=== PATIENT | female | born 1960 | race Caucasian/White ===

== ENCOUNTER 2016-07-11 15:38 | Outpatient (CLI) | payer OTHER ==
[2016-07-11 16:36] LABS: BASOPHILS % (AUTO) 0.5 % (0.0-2.0); EOSINOPHILS # (AUTO) 0.2 K/uL (0.0-0.4); EOSINOPHILS % (AUTO) 2.8 % (0.0-4.0); HEMATOCRIT 42.1 % (36-48); HEMOGLOBIN 14.1 g/dL (12.0-16.0); LYMPHOCYTES # (AUTO) 2.9 K/uL (1.0-5.5); LYMPHOCYTES % (AUTO) 38.4 % (20.5-51.5); MEAN CORPUSCULAR HEMOGLOBIN 31 pg (27-31); MEAN CORPUSCULAR HGB CONC 34 % (32-36); MEAN CORPUSCULAR VOLUME 92 fL (79.0-98.0); MONOCYTES # (AUTO) 0.5 K/uL (0.0-1.0); MONOCYTES % (AUTO) 6.3 % (1.7-9.3); PLATELET COUNT (AUTO) 322 K/uL (130-430); RED BLOOD CELL COUNT(AUTO) 4.61 MIL/uL (4.2-6.2); RED CELL DISTRIBUTION WIDTH 12.4 % (9.0-15.0); WHITE BLOOD COUNT (AUTO) 7.6 K/uL (4.8-10.8)
[2016-07-11 17:46] LABS: ALBUMIN 3.8 g/dL (3.4-4.8); C-REACTIVE PROTEIN QUANT 1.8 mg/dL (0-0.5); CALCIUM 9.1 mg/dL (8.4-11.0); CREATININE 0.85 mg/dL (0.55-1.30); FREE T4 (FREE THYROXINE) 0.5 ng/dL (0.6-1.6); POTASSIUM 4.2 mmol/L (3.5-5.1); THYROID STIMULATING HORMONE 0.85 uIu/mL (0.34-4.82); TOTAL BILIRUBIN 0.4 mg/dL (0.0-1.0); TOTAL PROTEIN, SERUM 8.3 g/dL (6.4-8.3)
[2016-07-11 18:02] LABS: ERYTHROCYTE SEDIMENTATION RATE 25 MM/HR (0-20)
[2016-07-12 08:07] LABS: FOLATE (FOLIC ACID) 10.1 ng/mL (>3.0)
== END 2016-07-11 18:31 | disposition home or self-care (01) ==
LOC: SLB 15:38
PROVIDERS: ATTEND Internal Medicine
DX: I10 Essential (primary) hypertension (principal)
CPT/HCPCS: 36415; 80053; 80061; 82306; 82607; 82746; 83655; 83735-TC; 84439; 84443-TC; 85025; 85651-TC; 86140

== ENCOUNTER 2016-07-31 12:38 | Outpatient (CLI) | payer OTHER | END 2016-07-31 20:08 | disposition home or self-care (01) | LOC: SUS 12:38 | PROVIDERS: ATTEND Internal Medicine | DX: M71.22 Synovial cyst of popliteal space [Baker], left knee (principal); I82.403 Acute embolism and thrombosis of unspecified deep veins of lower extremity, bilateral; M79.661 Pain in right lower leg | CPT/HCPCS: 93970 ==

== ENCOUNTER 2017-02-12 10:43 | Outpatient (CLI) | payer OTHER | END 2017-02-12 19:27 | disposition home or self-care (01) | LOC: SMA 10:43 | PROVIDERS: ATTEND Internal Medicine | DX: Z12.31 Encounter for screening mammogram for malignant neoplasm of breast (principal) | CPT/HCPCS: G0202 ==

== ENCOUNTER 2017-05-14 07:20 | Day surgery (SDC) | payer OTHER ==
[2017-05-12 11:49] LABS: BASOPHILS # (AUTO) 0.1 K/uL (0.0-0.2); EOSINOPHILS # (AUTO) 0.3 K/uL (0.0-0.4); EOSINOPHILS % (AUTO) 3.3 % (0.0-4.0); LYMPHOCYTES # (AUTO) 2.9 K/uL (1.0-5.5); LYMPHOCYTES % (AUTO) 32.1 % (20.5-51.5); MEAN CORPUSCULAR HEMOGLOBIN 29 pg (27-31); MEAN CORPUSCULAR HGB CONC 34 % (32-36); MEAN CORPUSCULAR VOLUME 86 fL (79.0-98.0); MONOCYTES # (AUTO) 0.6 K/uL (0.0-1.0); MONOCYTES % (AUTO) 6.1 % (1.7-9.3); NEUTROPHILS # (AUTO) 5.2 K/uL (1.8-7.7); NEUTROPHILS % (AUTO) 57.5 % (40.0-70.0); PLATELET COUNT (AUTO) 348 K/uL (130-430); RED BLOOD CELL COUNT(AUTO) 4.91 MIL/uL (4.2-6.2); RED CELL DISTRIBUTION WIDTH 11.8 % (9.0-15.0); WHITE BLOOD COUNT (AUTO) 9.1 K/uL (4.8-10.8)
[~2017-05-14] VITALS: Ht 165.1 cm; Wt 104.3 kg
[~2017-05-14 07:20] MED LIST: CEFAZOLIN 1 GM IVPB PREMIX 50 ML IV ONE
[2017-05-14 08:40] LABS: CALCIUM 9.2 mg/dL (8.4-11.0); CREATININE 0.77 mg/dL (0.55-1.30)
[2017-05-14 08:45] LABS: ALBUMIN 3.5 g/dL (3.4-4.8); TOTAL BILIRUBIN 0.4 mg/dL (0.0-1.0)
[2017-05-14] MEDS: MEPERIDINE HCL/PF 100 MG/ML AMP ONE ×2 (09:00→09:15)
[2017-05-14] MEDS: MIDAZOLAM HCL 5 MG/5 ML VIAL ONE ×2 (09:00→09:15)
[2017-05-14] MEDS ORDERED: MIDAZOLAM HCL 5 MG/5 ML VIAL IVP ONE (09:35)
[2017-05-14] MEDS ORDERED: NS IRRIG SOLN 1000 ML IR ONE (09:35)
[2017-05-14] MEDS ORDERED: LR 1,000 ML IV.SOLN IV ONE (09:35)
[2017-05-14] MEDS ORDERED: ROCURONIUM BROMIDE 10 MG/ML (ZEMURON) IV ONE (09:35)
[2017-05-14] MEDS ORDERED: SEVOFLURANE 15 MIN GAS INH ONE (09:35)
[2017-05-14] MEDS ORDERED: LIDOCAINE/EPI 2% 1:100000 20 ML VIAL INJ ONE (09:35)
[2017-05-14] MEDS ORDERED: BUPIVACAINE /PF 0.25% 30 ML VIAL INJ ONE (09:35)
[2017-05-14] MEDS ORDERED: PROPOFOL 200MG/ 20ML VIAL (DIPRIVAN) IV ONE (09:35)
[2017-05-14] MEDS ORDERED: fentaNYL CITRATE 250 MCG/5 ML AMP IV ONE (09:35)
[2017-05-14] MEDS ORDERED: CEFAZOLIN 1 GM IVPB PREMIX 50 ML IV ONE (09:35)
[2017-05-14] MEDS ORDERED: LR 1,000 ML IV SCH (10:21)
[2017-05-14] MEDS ORDERED: METOCLOPRAMIDE HCL 10 MG/2 ML VIAL IVP PRN (10:30)
[2017-05-14] MEDS ORDERED: MORPHINE 4 MG/ML INJ. SYRINGE IVP PRN ×3 (10:30)
[2017-05-14] MEDS ORDERED: MORPHINE 4 MG/ML INJ. SYRINGE ONE (10:47)
[2017-05-14] MEDS ORDERED: HYDROcodone/ACETAMIN 5-325 MG TAB (NORCO/ VICODIN) PO PRN (11:30)
[2017-05-14] MEDS ORDERED: ONDANSETRON HCL 4 MG/2 ML VIAL IVP PRN (11:30)
[2017-05-14] MEDS ORDERED: OXYCODONE/ACETAMINOPHEN 5-325 TABLET PO PRN (11:30)
[2017-05-14 12:11] VITALS: BP_SYST 98
== END 2017-05-14 13:30 | disposition home or self-care (01) ==
LOC: SDS 07:20 → SMU 07:21 → SDS 13:30
PROVIDERS: ATTEND Specialist
DX: N90.4 Leukoplakia of vulva (principal); L91.8 Other hypertrophic disorders of the skin; N90.3 Dysplasia of vulva, unspecified; L85.8 Other specified epidermal thickening; L08.89 Other specified local infections of the skin and subcutaneous tissue; I10 Essential (primary) hypertension; E78.00 Pure hypercholesterolemia, unspecified; F41.8 Other specified anxiety disorders; M19.90 Unspecified osteoarthritis, unspecified site; F17.200 Nicotine dependence, unspecified, uncomplicated; E66.9 Obesity, unspecified; Z88.1 Allergy status to other antibiotic agents; Z90.710 Acquired absence of both cervix and uterus; Z96.653 Presence of artificial knee joint, bilateral; Z96.641 Presence of right artificial hip joint; Z98.890 Other specified postprocedural states; Z79.82 Long term (current) use of aspirin; Z79.899 Other long term (current) drug therapy
CPT/HCPCS: 11423; 11200; 36415 ×2; 80053; 85025; 88305; 93005; J0690; J2175; J2250; J2270; J7120; J2704; J3010; J3490

== ENCOUNTER 2017-06-09 13:40 | Emergency (ER) | payer OTHER ==
[~2017-06-09] VITALS: Ht 165.1 cm; Wt 104.3 kg
[2017-06-09 14:21] VITALS: BP_SYST 120
[2017-06-09 14:50] LABS: BASOPHILS # (AUTO) 0.1 K/uL (0.0-0.2); BASOPHILS % (AUTO) 0.9 % (0.0-2.0); EOSINOPHILS # (AUTO) 0.1 K/uL (0.0-0.4); EOSINOPHILS % (AUTO) 1.5 % (0.0-4.0); HEMOGLOBIN 13.9 g/dL (12.0-16.0); LYMPHOCYTES # (AUTO) 1.6 K/uL (1.0-5.5); LYMPHOCYTES % (AUTO) 22.6 % (20.5-51.5); MEAN CORPUSCULAR HEMOGLOBIN 28 pg (27-31); MEAN CORPUSCULAR HGB CONC 32 % (32-36); MEAN CORPUSCULAR VOLUME 86 fL (79.0-98.0); MONOCYTES # (AUTO) 0.9 K/uL (0.0-1.0); MONOCYTES % (AUTO) 12.8 % (1.7-9.3); NEUTROPHILS # (AUTO) 4.4 K/uL (1.8-7.7); NEUTROPHILS % (AUTO) 62.2 % (40.0-70.0); PLATELET COUNT (AUTO) 305 K/uL (130-430); RED BLOOD CELL COUNT(AUTO) 5.01 MIL/uL (4.2-6.2); RED CELL DISTRIBUTION WIDTH 11.8 % (9.0-15.0); WHITE BLOOD COUNT (AUTO) 7.1 K/uL (4.8-10.8)
[2017-06-09 15:07] LABS: CREATININE 1.62 mg/dL (0.55-1.30); POTASSIUM 4.2 mmol/L (3.5-5.1)
--- NOTE | 2017-06-09 15:09 | NUR ---
Pt to hallway bed 1.
--- NOTE | 2017-06-09 15:11 | NUR ---
RACHEL Tenorio NEWSPAPER MANAGING EDITOR at bedside examining patient.
--- NOTE | 2017-06-09 15:12 | NUR ---
Pt presents to the ED c/o difficulty swallowing and sore throat x5-6 days accompanying nausea, generalized weakness, and body aches and mild diarrhea. Pt denies vomiting, cough, headache, abd pain. Pt speaking in full sentences, breathing even and unlabored, skin pink dry and warm. at bedside.
[2017-06-09 15:13] LABS: ALBUMIN 3.7 g/dL (3.4-4.8); TOTAL BILIRUBIN 0.3 mg/dL (0.0-1.0)
[2017-06-09 16:02] LABS: BILIRUBIN,URINE 1+ (NEGATIVE); BLOOD, URINE NEGATIVE (NEGATIVE); CLARITY/URINE SL HAZY (CLEAR); COLOR,URINE YELLOW (YELLOW); GLUCOSE,URINE NEGATIVE (NEGATIVE); KETONES,URINE TRACE (NEGATIVE); LEUKOCYTE ESTERASE ,URINE NEGATIVE (NEGATIVE); NITRITE, URINE NEGATIVE (NEGATIVE); PH,URINE 5.5 (5.0-8.0); PROTEIN URINE TRACE (NEGATIVE); UROBILINOGEN,URINE 0.2 (0.2-1.0)
[2017-06-09 16:27] LABS: BACTERIA,URINE FEW /HPF (None Seen); RBC,URINE 0-3 /HPF (0-3); WBC,URINE 0-3 /HPF (0-3)
--- NOTE | 2017-06-09 16:38 | NUR ---
# 22 gauge angiocath placed to L AC. Use of asceptic technique. Opsite placed over site. Blood return noted. Flushed with 10 cc of normal saline. No evidence of infiltration noted. Patient tolerated well.
[2017-06-09 16:44] LABS: INFLUENZA A&B ANTIGEN SCREEN NEGATIVE FOR A & B (NEGATIVE); STREPTOCOCCUS A SCREEN (RAPID) NEGATIVE (NEGATIVE)
[2017-06-09] MEDS: NACL 0.9% 1,000 ML IV ONE (16:55)
[2017-06-09] MEDS: ONDANSETRON HCL 4 MG/2 ML VIAL IVP ONE (16:55)
[2017-06-09] MEDS: KETOROLAC TROMETHAMINE 30 MG VIAL IVP ONE (16:56)
--- NOTE | 2017-06-09 16:56 | NUR ---
Medication administered. Pt tolerated well. No adverse reactions noted.
[2017-06-09] MEDS: methylPREDNISolone SOD SUCC/PF 62.5 MG/ML VIAL IVP ONE (17:09)
[2017-06-09] MEDS ORDERED: LORazepam 1 MG TABLET PO ONE (17:15)
[2017-06-09] MEDS: LORazepam 2 MG/ML VIAL (FOR ER USE) IVP ONE ×2 (17:45→18:09)
[2017-06-09] MEDS: PENICILLIN G BENZATHINE 1.2 MMU/2 ML SYR IM ONE (17:51)
[2017-06-09 18:30] VITALS: BP_SYST 118
--- NOTE | 2017-06-09 18:30 | NUR ---
Patient given written and verbal discharge instructions and verbalizes understanding. ER MD discussed with patient the results and treatment provided. Patient in stable condition. ID arm band removed. IV catheter removed intact and dressing applied, no active bleeding. Rx of Prednisone, Prilosec, Zofran given. Patient educated on pain management and to follow up with PMD. Pain Scale 0. Opportunity for questions provided and answered.
== END 2017-06-09 18:30 | disposition home or self-care (01) ==
LOC: SED 13:40
DX: J02.9 Acute pharyngitis, unspecified (principal); B34.9 Viral infection, unspecified; I10 Essential (primary) hypertension; F41.9 Anxiety disorder, unspecified; Z88.1 Allergy status to other antibiotic agents; Z91.018 Allergy to other foods; Z91.048 Other nonmedicinal substance allergy status; Z90.710 Acquired absence of both cervix and uterus; Z96.641 Presence of right artificial hip joint
CPT/HCPCS: 36415; 71045; 74018; 80053; 81000; 83690; 85025; 86403; 86710; 87081; 93005; 96361; 96372; 96374; 96375; 96376; 99285; J0561; J1885; J2060; J2405; J2930; J7030

== ENCOUNTER 2017-06-10 17:42 | Inpatient (IN) | payer OTHER ==
[~2017-06-10] VITALS: Ht 165.1 cm; Wt 104.8 kg
[2017-06-10] MEDS ORDERED: AMPICILLIN SODIUM/SULBACTAM NA 1.5 GM in NS 50 ML IV SCH (19:30)
[2017-06-10] MEDS ORDERED: ONDANSETRON HCL 4 MG/2 ML VIAL IVP PRN (19:30)
--- NOTE | 2017-06-10 19:40 | NUR ---
ADMISSION: The patient, RAUL WALLIS, 56 y/o, F admitted by ANDREA GRIFFITHS MD, was given written information regarding hospital policies, unit procedures and contact persons. Valuables were checked and recorded and verified..
[2017-06-10 19:50] LABS: BASOPHILS # (AUTO) 0.1 K/uL (0.0-0.2); BASOPHILS % (AUTO) 0.5 % (0.0-2.0); HEMATOCRIT 38.7 % (36-48); HEMOGLOBIN 13.1 g/dL (12.0-16.0); LYMPHOCYTES # (AUTO) 2.6 K/uL (1.0-5.5); MEAN CORPUSCULAR HEMOGLOBIN 29 pg (27-31); MEAN CORPUSCULAR HGB CONC 34 % (32-36); MEAN CORPUSCULAR VOLUME 85 fL (79.0-98.0); MONOCYTES # (AUTO) 1.2 K/uL (0.0-1.0); MONOCYTES % (AUTO) 8.6 % (1.7-9.3); NEUTROPHILS # (AUTO) 10.3 K/uL (1.8-7.7); NEUTROPHILS % (AUTO) 72.9 % (40.0-70.0); PLATELET COUNT (AUTO) 316 K/uL (130-430); RED BLOOD CELL COUNT(AUTO) 4.54 MIL/uL (4.2-6.2); WHITE BLOOD COUNT (AUTO) 14.2 K/uL (4.8-10.8)
[2017-06-10 20:08] LABS: CALCIUM 8.8 mg/dL (8.4-11.0); CREATININE 1.16 mg/dL (0.55-1.30); POTASSIUM 4.1 mmol/L (3.5-5.1)
[2017-06-10 20:13] LABS: ALBUMIN 3.1 g/dL (3.4-4.8); TOTAL BILIRUBIN 0.2 mg/dL (0.0-1.0)
--- NOTE | 2017-06-10 20:13 | NUR ---
admission note RECEIVED PATIENT ON BED VIA DIRECT ADMIT ACCOMPANIED BY THE , MAINTAINED ON POSITION OF COMFORT IN DUMONT'S POSITION. PATIENT STATED THAT SHE HAS PAIN ON THE THROAT WHEN SHE IS SWALLOWING AND IS AGGRAVATED BY SWALLOWING AND TALKING. PATIENT IS ALSO FEELING NAUSEOUS. PROVIDED PATIENT WITH ADMISSION CARE, AND ORIENTED TO THE UNIT FACILITY. EXPLAINED THE PLAN OF CARE AND VERBALIZED UNDERSTANDING. ENCOURAGED TO DO SOME DEEP BREATHING AND RELAXATION. CALL LIGHT WITHIN REACH WILL CONTINUE TO MONITOR.
--- NOTE | 2017-06-10 20:28 | NUR ---
MD ANDER PIERRE CAME TO SEE THE PATIENT AND SAID THAT HE WILL MAKE ANOTHER ORDER. NOT TO GIVE THE UNASYN 1.5 INSTEAD HE WILL CHANGE THE ORDER TO 3MDG. WILL WAIT FOR THE ORDERS AND NOTE IT.
[2017-06-10] MEDS ORDERED: PROMETHAZINE-DM 6.25 MG-15 MG/5 ML UDC PO PRN (20:30)
[2017-06-10 21:00] VITALS: BP_SYST 121
[2017-06-10] MEDS ORDERED: AMPICILLIN SODIUM/SULBACTAM NA 3 GM in NS 100 ML IV ONE (21:00)
[2017-06-10] MEDS ORDERED: AMPICILLIN SODIUM/SULBACTAM NA 3 GM VIAL ONE (22:22)
[2017-06-10] MEDS: NACL 0.9% 1,000 ML IV SCH (22:24)
[2017-06-10] MEDS: LORazepam 2 MG/ML VIAL IVP PRN (22:24)
[2017-06-10] MEDS: DIPHENHYDRAMINE INJ 50 MG/ML VIAL IVP SCH (22:25)
[2017-06-10] MEDS: ACETAMINOPHEN 325 MG TABLET PO PRN (22:26)
[2017-06-10] MEDS ORDERED: TEMAZEPAM 15 MG CAPSULE PO PRN (22:30)
--- NOTE | 2017-06-10 22:44 | NUR ---
RN ROUNDS PATIENT MEDICATIONS GIVEN DUE TO PAIN ON THE THROAT, AND STATED THAT SHE IS HAVING AND ANXIETY. ENCOURAGED RELAXATION TECHNIQUES AND DEEP BREATHING TO PROMOTE REST AND SLEEP. PATIENT'S ON THE BEDSIDE. PATIENT REFUSED THE SCD'S BECAUSE IT WAS TOO TIGHT FOR HER AND WATS TO HAVE A GOOD REST SLEEP. EXPLAINED THE RISKS AND BENEFITS AND VERBALIZED UNDERSTANDING CALL LIGHT WITHIN REACH WILL CONTINUE TO MONITOR
[2017-06-11] VITALS: BP_SYST 125
--- NOTE | 2017-06-11 00:36 | NUR ---
BENADRYL BENADRYL GIVEN EARLIER THAN THE TIMED DOSE, STATED THAT RN CAN GIVE THE MEDICATION ONCE THE PATIENT HAS A LINE. 2205 NEW LINE WAS INSERTED AT THE LEFT HAND CLEAN DRY INTACT. CALL LIGHT WITHIN REACH WILL CONTINUE TO MONITOR.
[2017-06-11] MEDS: MORPHINE 2 MG/ML INJ. SYRINGE IVP PRN ×2 (00:44→06:17)
--- NOTE | 2017-06-11 02:00 | NUR ---
RN ROUNDS PATIENT ON BED SLEEPING AND RESTING MAINTAINED ON POSITION OF COMFORT MAINTAINED SAFETY PRECAUTIONS. NO SOB NOTED NOT IN DISTRESS. CALL LIGHT WITHIN REACH WILL CONTINUE TO MONITOR.
--- NOTE | 2017-06-11 04:35 | NUR ---
RN ROUNDS PATIENT ON BED SLEEPING AND RESTING BREATHING EVEN AND UNLABORED NO SOB NOTED WILL CONTINUE TO MONITOR, CALL LIGHT WITHIN REACH.
[2017-06-11] MEDS ORDERED: AMPICILLIN SODIUM/SULBACTAM NA 3 GM VIAL ONE (05:52)
[2017-06-11] MEDS: AMPICILLIN SODIUM/SULBACTAM NA 3 GM in NS 100 ML IV SCH ×4 (06:00→23:37)
[2017-06-11] MEDS: DIPHENHYDRAMINE INJ 50 MG/ML VIAL IVP SCH ×5 (06:18→23:36)
--- NOTE | 2017-06-11 06:59 | NUR ---
CLOSING NOTES PATIENT ON BED SLEEPING AND RESTING, MAINTAINED ON POSITION OF COMFORT MAINTAINED ON SAFETY PRECAUTION, MAINTAINED BED ON LOWEST POSITION, STILL WITH OCCASIONAL PAIN. WILL GIVE REPORT TO THE MORNING NURSE, PATIENT STILL RUNNING IV @ 100, CLEAN DRY INTACT. ICE CHIPS GIVEN TO RELIEVE PAIN ON THE THROAT, AND TOLERATING WELL.SCD'S REFUSED THROUGH THE NIGHT. WILL CONTINUE TO MONITOR CALL LIGHT WITHIN REACH.
[2017-06-11 07:40] LABS: BASOPHILS % (AUTO) 0.4 % (0.0-2.0); EOSINOPHILS % (AUTO) 0.2 % (0.0-4.0); HEMATOCRIT 38.4 % (36-48); HEMOGLOBIN 12.8 g/dL (12.0-16.0); LYMPHOCYTES # (AUTO) 3.8 K/uL (1.0-5.5); LYMPHOCYTES % (AUTO) 32.8 % (20.5-51.5); MEAN CORPUSCULAR HEMOGLOBIN 29 pg (27-31); MEAN CORPUSCULAR HGB CONC 33 % (32-36); MEAN CORPUSCULAR VOLUME 87 fL (79.0-98.0); MONOCYTES % (AUTO) 8.8 % (1.7-9.3); NEUTROPHILS # (AUTO) 6.8 K/uL (1.8-7.7); NEUTROPHILS % (AUTO) 57.8 % (40.0-70.0); PLATELET COUNT (AUTO) 281 K/uL (130-430); RED BLOOD CELL COUNT(AUTO) 4.41 MIL/uL (4.2-6.2); RED CELL DISTRIBUTION WIDTH 11.9 % (9.0-15.0); WHITE BLOOD COUNT (AUTO) 11.6 K/uL (4.8-10.8)
[2017-06-11 07:56] LABS: CALCIUM 8.9 mg/dL (8.4-11.0); CREATININE 0.91 mg/dL (0.55-1.30); FREE T4 (FREE THYROXINE) 0.8 ng/dL (0.6-1.6); POTASSIUM 4.1 mmol/L (3.5-5.1); THYROID STIMULATING HORMONE 1.05 uIu/mL (0.34-4.82)
[2017-06-11 08:00] VITALS: BP_SYST 123
--- NOTE | 2017-06-11 08:00 | NUR ---
opening note Patient resting quietly. No acute distress noted. oriented to call light use. bed in the lowest position. patient denies any chest pain/ shortness of breath.
[2017-06-11] MEDS: CARVEDILOL 6.25 MG TABLET (COREG) PO SCH ×2 (08:33→20:48)
[2017-06-11] MEDS: ACETAMINOPHEN 325 MG TABLET PO PRN ×2 (08:33→17:53)
[2017-06-11] MEDS: MECLIZINE HCL 25 MG TABLET (ANITVERT) PO SCH ×3 (08:34→20:48)
[2017-06-11] MEDS: HYDROCHLOROTHIAZIDE 25 MG TABLET (HCTZ) PO SCH (08:34)
[2017-06-11 08:50] LABS: ERYTHROCYTE SEDIMENTATION RATE 29 MM/HR (0-20)
[2017-06-11] MEDS ORDERED: BENAZEPRIL HCL 20 MG TABLET (LOTENSIN) PO SCH (09:00)
[2017-06-11] MEDS: NACL 0.9% 1,000 ML IV SCH ×2 (11:04→14:38)
[2017-06-11 11:37] VITALS: BP_SYST 107
--- NOTE | 2017-06-11 12:00 | NUR ---
PATIENT RESTING: Patient resting quietly.family at bedside. No acute distress noted. bed in the lowest position. patient denies any chest pain/ shortness of breath.
--- NOTE | 2017-06-11 12:30 | NUR ---
IV RE-INSERTION: Complaining of pain to IV site. Restarted on the left hand. Successful after attempts. Resumed current IVF of and regulated @ per hour. Will observe for any signs of infiltration.
[2017-06-11] MEDS: LORazepam 1 MG TABLET PO SCH ×4 (13:00→20:54)
[2017-06-11] MEDS: MORPHINE 4 MG/ML INJ. SYRINGE IVP PRN ×2 (13:21→21:00)
[2017-06-11 15:26] VITALS: BP_SYST 108
--- NOTE | 2017-06-11 16:43 | NUR ---
Dietitian Recommendations * Consider swallow eval * Consider advance diet if/when medically appropriate LP, RD Please refer to Nutrition Assessment for details.
[2017-06-11] MEDS: LORazepam 2 MG/ML VIAL IVP PRN (18:10)
--- NOTE | 2017-06-11 19:00 | NUR ---
closing note family at bedside. patient in no distress. all needs met throughout shift. report given at bedside.
--- NOTE | 2017-06-11 19:20 | NUR ---
OPENING NOTE REPORT WAS ENDORSED BY DAY NURSE AT BEDSIDE. PATIENT IS AWAKE AND LAYING IN BED, EDUCATED ELECTRIFICATION ADVISER LIGHT , CALL LIGHT IS WITH HER. PATIENT HAS FAMILY MEMBER AT BED SIDE. PATIENT HAS NO OTHER NEEDS AT THIS TIME. PATIENT IS STABLE NO OTHER SIGNS OF DISTRESS, BREATHING IS EQUAL AND NON LABORED. WILL CONTINUE TO MONITOR.
[2017-06-11 20:45] VITALS: BP_SYST 135
[2017-06-11] MEDS: OMEGA-3/DHA/EPA/FISH OIL 1 GM CAPSULE PO SCH (20:48)
[2017-06-11] MEDS: CHOLECALCIFEROL (VITAMIN D3) 2,000 UNIT TABLET PO SCH (20:48)
[2017-06-11] MEDS: BENAZEPRIL HCL 20 MG TABLET (LOTENSIN) PO SCH (20:49)
[2017-06-11] MEDS: ASPIRIN 81 MG TAB.CHEW PO SCH (20:49)
--- NOTE | 2017-06-11 21:03 | NUR ---
PAIN MEDICATION/MEDICATION Addendum: 06/12/17 at 0015 by No Rizvi RN PT AWAKE AND ALERT, PT LYING IN BED SEMI-FOWLERS POSITION. RESPIRATIONS EVEN AND UNLABORED.NO DISTRESS NOTED. VITAL SIGNS STABLE. PT'S SCHEDULED ORDERED MEDS GIVEN PRESCRIBED, PT TOLERATED WELL. SAFETY MEASURES IMPLEMENTED. CALL LIGHT WITHIN REACH, BED IN LOWEST POSITION. NO NEEDS AT THIS TIME. LIGHT SHUT OFF, PT GOING TO SLEEP. WILL CONTINUE TO MONITOR.
--- NOTE | 2017-06-11 23:30 | NUR ---
MEDICATION ADMINISTRATION PT FOUND ASLEEP, IN POSITION OF COMFORT. RESPIRATIONS EVEN AND UNLABORED. VITAL SIGNS STABLE. MEDICATIONS ADMINISTERED ORDERED, TOLERATED WELL. ASSISTED PT TO THE RESTROOM, COLLECTED URINE SPECIMEN. ASSISTED PT BACK TO BED. SAFETY PRECAUTIONS IMPLEMENTED. CALL LIGHT WITHIN REACH, BED IN LOWEST POSITION.
[2017-06-11 23:53] LABS: BILIRUBIN,URINE NEGATIVE (NEGATIVE); BLOOD, URINE NEGATIVE (NEGATIVE); CLARITY/URINE CLEAR (CLEAR); COLOR,URINE YELLOW (YELLOW); GLUCOSE,URINE NEGATIVE (NEGATIVE); KETONES,URINE NEGATIVE (NEGATIVE); LEUKOCYTE ESTERASE ,URINE NEGATIVE (NEGATIVE); NITRITE, URINE NEGATIVE (NEGATIVE); PH,URINE 5.5 (5.0-8.0); PROTEIN URINE NEGATIVE (NEGATIVE); UROBILINOGEN,URINE 0.2 (0.2-1.0)
[2017-06-12 00:02] VITALS: BP_SYST 115
--- NOTE | 2017-06-12 01:30 | NUR ---
rn rounding Delayed charting due to patient care. Patient appears to be resting with both eyes closed no signs of any distress, breathing is equal and non labored with visible chest rise and fall . Patient has all safety precautions in place, call light is with her. Patient is stable has no other needs at this time
--- NOTE | 2017-06-12 03:30 | NUR ---
RN ROUNDS FOUND PT ASLEEP, IN POSITION OF COMFORT. RESPIRATIONS EVEN AND UNLABORED. NO DISTRESS NOTED. SAFETY PRECAUTIONS IN PLACE. RUTHY LIGHT WITHIN REACH, BED IN LOWEST POSITION, BED RAILS UP. WILL CONTINUE TO MONITOR.
[2017-06-12 04:31] VITALS: BP_SYST 115
[2017-06-12] MEDS: NACL 0.9% 1,000 ML IV SCH ×4 (04:38→22:18)
[2017-06-12] MEDS: MORPHINE 4 MG/ML INJ. SYRINGE IVP PRN ×2 (04:45→18:14)
--- NOTE | 2017-06-12 05:00 | NUR ---
IV site Patients iv site infiltrated 22 gauge to left hand removed catheter is intact. New iv site obtained on left wrist, 24 g flushing well, good blood return.Patient is awake and alert laying in bed no signs of any distress, breathing is equal and non labored. Patient is stable with all needs met at this time. Will continue to monitor.
[2017-06-12] MEDS: AMPICILLIN SODIUM/SULBACTAM NA 3 GM in NS 100 ML IV SCH ×4 (05:40→23:18)
[2017-06-12] MEDS: DIPHENHYDRAMINE INJ 50 MG/ML VIAL IVP SCH ×4 (05:40→23:17)
--- NOTE | 2017-06-12 07:06 | NUR ---
RN ROUNDS PT ASLEEP, AND IN POSITION OF COMFORT. RESPIRATIONS EVEN AND UNLABORED. NO DISTRESS NOTED AT THIS TIME. SAFETY PRECAUTION IN PLACE,CALL LIGHT WITHIN REACH. BED IN LOWEST POSITION, WILL CONTINUE TO MONITOR.
[2017-06-12 07:15] LABS: BASOPHILS % (AUTO) 0.5 % (0.0-2.0); EOSINOPHILS # (AUTO) 0.1 K/uL (0.0-0.4); EOSINOPHILS % (AUTO) 1.4 % (0.0-4.0); HEMATOCRIT 39.9 % (36-48); HEMOGLOBIN 13.2 g/dL (12.0-16.0); LYMPHOCYTES % (AUTO) 42.8 % (20.5-51.5); MEAN CORPUSCULAR HEMOGLOBIN 29 pg (27-31); MEAN CORPUSCULAR HGB CONC 33 % (32-36); MEAN CORPUSCULAR VOLUME 87 fL (79.0-98.0); MONOCYTES # (AUTO) 0.9 K/uL (0.0-1.0); MONOCYTES % (AUTO) 9.1 % (1.7-9.3); NEUTROPHILS # (AUTO) 4.4 K/uL (1.8-7.7); NEUTROPHILS % (AUTO) 46.2 % (40.0-70.0); PLATELET COUNT (AUTO) 281 K/uL (130-430); RED BLOOD CELL COUNT(AUTO) 4.57 MIL/uL (4.2-6.2); RED CELL DISTRIBUTION WIDTH 12.3 % (9.0-15.0); WHITE BLOOD COUNT (AUTO) 9.4 K/uL (4.8-10.8)
[2017-06-12 07:29] LABS: CALCIUM 9.2 mg/dL (8.4-11.0); CREATININE 0.75 mg/dL (0.55-1.30); POTASSIUM 4.2 mmol/L (3.5-5.1)
--- NOTE | 2017-06-12 08:00 | NUR ---
OPENING NOTE: MORNING REPORT GIVEN FROM VEHICLE SAFETY INSPECTOR NURSE. PATIENT WAS ASLEEP WITH NO SIGNS OF DISTRESS. PATIENT HELPED TO RESTROOM. VITAL SIGNS WERE TAKEN. PATIENT STATED SHE IS TIRED. PATIENT ALSO STATED HER THROAT HURTS HER. WILL TRY TO MINIMIZE INTERRUPTIONS. CALL LIGHT IS IN REACH WITH BED IN LOWEST POSITION. 3 SIDE RAILS ARE UP. WILL CONTINUE TO MONITOR.
[2017-06-12 08:55] VITALS: BP_SYST 166
[2017-06-12] MEDS: ACETAMINOPHEN 325 MG TABLET PO PRN (09:30)
[2017-06-12] MEDS: LORazepam 1 MG TABLET PO SCH ×4 (09:31→20:47)
[2017-06-12] MEDS: CARVEDILOL 6.25 MG TABLET (COREG) PO SCH ×2 (09:32→20:47)
[2017-06-12] MEDS: MECLIZINE HCL 25 MG TABLET (ANITVERT) PO SCH ×3 (09:33→20:45)
[2017-06-12] MEDS: HYDROCHLOROTHIAZIDE 25 MG TABLET (HCTZ) PO SCH (09:33)
--- NOTE | 2017-06-12 10:00 | NUR ---
NOTE: PATIENT IS ASLEEP WITH NO SIGNS OF DISTRESS. PATIENT WOKEN FOR MEDICATIONS. PATIENTS THROAT IS SWOLLEN. TOOK PILLS ONE BY ONE UNTIL END. PATIENT WANTED TO GET THEM OVER WITH. TAKING MORE THAN 1 HURTS HER THROAT. PATIENT HAS IV FLUIDS RUNNING. BED IS IN LOWEST POSITION WITH LIGHTS DIMMED. CALL LIGHT IS IN REACH WITH 3 SIDE RAILS UP. WILL CONTINUE TO MONITOR.
--- NOTE | 2017-06-12 12:00 | NUR ---
NOTE: PATIENT IS SITTING AT BEDSIDE TALKING TO AND EATING LUNCH. PATIENT IS IN NO SIGNS OF DISTRESS. PATIENT IS ON ROOM AIR. PATIENT VOICED CONCERNS ABOUT IV GOING BAD. GOT ICE FOR PATIENTS DRINK. CALL LIGHT IS IN REACH WITH BED IN LOWEST POSITION. SIDE RAILS ARE UP. WILL CONTINUE TO MONITOR.
[2017-06-12 12:38] VITALS: BP_SYST 125
--- NOTE | 2017-06-12 14:00 | NUR ---
NOTE: PATIENT IS SLEEPING WITH NO SIGNS OF DISTRESS. IS AT BEDSIDE ALSO ASLEEP. LIGHTS ARE DIMMED. PATIENT IS ON ROOM AIR. IV FLUIDS ARE RUNNING. CALL LIGHT IS IN REACH WITH SIDE RAILS UP. BED IS IN LOWEST POSITION. WILL CONTINUE TO MONITOR.
--- NOTE | 2017-06-12 16:00 | NUR ---
NOTE: PATIENT IS COMFORTABLY ASLEEP WITH NO SIGNS OF DISTRESS. PATIENT AWAKENED TO GIVE MEDICATIONS. PATIENT WAS COMPLAINING OF TAKING ALL THE PO MEDICATIONS AND HOW THEY AREN'T MAKING HER THROAT ANY BETTER. OFFERED PATIENT SOMETHING WARM FOR THROAT. CALLED KITCHEN FOR SOME NONCAFFEINATED TEA FOR PATIENT. PATIENT IS ON ROOM AIR. FLUIDS ARE RUNNING. BED IS IN LOWEST POSITION WITH CALL LIGHT IN REACH AND SIDE RAILS UP. WILL CONTINUE TO MONITOR.
[2017-06-12 16:20] VITALS: BP_SYST 150
--- NOTE | 2017-06-12 18:00 | NUR ---
CLOSING NOTE: PATIENT IS AWAKE EATING DINNER AT BEDSIDE WITH . PATIENT IS COMPLAINING OF PAIN 9/10 IN JAW/EAR FROM A YAWN. PAIN MEDICATION WAS GIVEN ALONG WITH OTHER MEDICATIONS. PATIENT WOULD LIKE INTERRUPTIONS TO BE MINIMIZED SO SHE COULD REST AND SLEEP. PATIENT DOESN'T WANT SCD'S ON. PATIENT IS ON ROOM AIR. CALL LIGHT IS IN REACH WITH BED IN LOWEST POSITION AND 3 SIDE RAILS ARE UP. WILL GIVE REPORT TO EVENTS AND PROMOTIONS ASSISTANT NURSE.
--- NOTE | 2017-06-12 19:20 | NUR ---
Opening note Report was endorsed by day nurse at bed side. Patient appears to be resting with both eyes closed no signs of any distress, breathing is equal and non labored. Patient has all safety precautions in place. Patient has call light with her. Patients spouse at bed side. Patient is stable with no other needs at this time. Will continue to monitor hourly.
[2017-06-12 20:43] VITALS: BP_SYST 166
[2017-06-12] MEDS: CHOLECALCIFEROL (VITAMIN D3) 2,000 UNIT TABLET PO SCH (20:45)
[2017-06-12] MEDS: OMEGA-3/DHA/EPA/FISH OIL 1 GM CAPSULE PO SCH (20:45)
[2017-06-12] MEDS: BENAZEPRIL HCL 20 MG TABLET (LOTENSIN) PO SCH (20:47)
[2017-06-12] MEDS: ASPIRIN 81 MG TAB.CHEW PO SCH (20:47)
--- NOTE | 2017-06-12 20:56 | NUR ---
MEDICATION Patients scheduled medication given per order. Dr. Andrews at bed side. Informed him of elevated blood pressure and which medication blood pressure medication was just administered. Patient is awake and alert laying in bed. Assisted patient to bathroom and back to bed. Patient has no other needs at this time. Patient is stable no other needs at this time. Will continue to monitor patient and blood pressure.
--- NOTE | 2017-06-12 21:55 | NUR ---
Spoke with Dr. Andrews Regarding IV fluid and blood pressure orders were received. Patient blood pressure currently is 159/95 will continue to monitor.
[2017-06-12] MEDS: LORazepam 2 MG/ML VIAL IVP PRN (22:17)
[2017-06-12] MEDS: cloNIDine HCL 0.1 MG TABLET PO PRN (23:17)
--- NOTE | 2017-06-12 23:22 | NUR ---
blood pressure/scheduled medication Addendum: 06/12/17 at 2349 by Taryn Oshea RN Patients blood pressure is elevated medicated per order. Patients scheduled medication also given. Patient is awake and alert, educted to try and get some rest. Patient has all safety precautions in place. Assisted to bathroom and back to bed. Patient is stable has no other needs at this time. Will continue to monitor.
[2017-06-13] VITALS (9 sets, daily range): BP systolic 120–169
--- NOTE | 2017-06-13 01:12 | NUR ---
RN rounding Patient appears to be resting with both eyes closed no signs of any distress, breathing is equal and non labored. Patient has all safety precautions in place.Call light is with her. Patient is stable.
--- NOTE | 2017-06-13 03:14 | NUR ---
RN rounding Patient is laying in bed appears to be sleeping with both eyes closed no signs of any distress, breathing is equal and non labored. patient has all safety precautions in place.Call light is with her. Patient is stable with no other needs at this time. will continue to monitor.
[2017-06-13] MEDS: AMPICILLIN SODIUM/SULBACTAM NA 3 GM in NS 100 ML IV SCH ×3 (05:14→17:35)
[2017-06-13] MEDS: DIPHENHYDRAMINE INJ 50 MG/ML VIAL IVP SCH ×3 (05:15→17:34)
[2017-06-13] MEDS: cloNIDine HCL 0.1 MG TABLET PO PRN (05:30)
--- NOTE | 2017-06-13 05:32 | NUR ---
Medication/elevated blood pressure Patients scheduled medication given per order. Patients blood pressure reassessed and is elevated, medicated per order. Patient is awake and alert, laying in bed no signs of any distress, her breathing is equal and non labored. Patient has no other needs will continue to monitor.
[2017-06-13] MEDS: LORazepam 2 MG/ML VIAL IVP PRN ×3 (06:29→20:53)
--- NOTE | 2017-06-13 06:38 | NUR ---
BP reassessment/Rn closing note Patients BP is 160/85, patient is also experiencing some anxiety, Medicated per order. Patient is awake and alert, laying in her breathing is equal and non labored. Patient has all safety precautions in place. Call light is with her educated to use for any assitance. Patient has no other needs at this time. Will endorse report to oncoming day nurse at bedside.
[2017-06-13 06:45] LABS: BASOPHILS % (AUTO) 0.4 % (0.0-2.0); EOSINOPHILS # (AUTO) 0.2 K/uL (0.0-0.4); EOSINOPHILS % (AUTO) 2.7 % (0.0-4.0); HEMATOCRIT 35.5 % (36-48); LYMPHOCYTES # (AUTO) 3.3 K/uL (1.0-5.5); LYMPHOCYTES % (AUTO) 38.5 % (20.5-51.5); MEAN CORPUSCULAR HEMOGLOBIN 29 pg (27-31); MEAN CORPUSCULAR HGB CONC 34 % (32-36); MEAN CORPUSCULAR VOLUME 86 fL (79.0-98.0); MONOCYTES # (AUTO) 0.7 K/uL (0.0-1.0); MONOCYTES % (AUTO) 7.7 % (1.7-9.3); NEUTROPHILS # (AUTO) 4.3 K/uL (1.8-7.7); NEUTROPHILS % (AUTO) 50.7 % (40.0-70.0); PLATELET COUNT (AUTO) 271 K/uL (130-430); RED BLOOD CELL COUNT(AUTO) 4.11 MIL/uL (4.2-6.2); RED CELL DISTRIBUTION WIDTH 11.8 % (9.0-15.0); WHITE BLOOD COUNT (AUTO) 8.5 K/uL (4.8-10.8)
[2017-06-13 06:47] LABS: CALCIUM 8.7 mg/dL (8.4-11.0); CREATININE 0.73 mg/dL (0.55-1.30); POTASSIUM 3.9 mmol/L (3.5-5.1)
[2017-06-13] MEDS: LORazepam 1 MG TABLET PO SCH ×4 (08:46→21:00)
[2017-06-13] MEDS: MECLIZINE HCL 25 MG TABLET (ANITVERT) PO SCH ×3 (08:47→20:53)
[2017-06-13] MEDS: HYDROCHLOROTHIAZIDE 25 MG TABLET (HCTZ) PO SCH (08:47)
[2017-06-13] MEDS: CARVEDILOL 6.25 MG TABLET (COREG) PO SCH ×2 (08:48→20:48)
[2017-06-13] MEDS: MORPHINE 2 MG/ML INJ. SYRINGE IVP PRN (12:24)
--- NOTE | 2017-06-13 14:00 | NUR ---
Pt is alert and oriented x4. PIV potent to left wrist g 24 with .9NS infusing at 10cc/hour. Pt is particular about getting her pain and anxiety medications. Patient is actively involved with her own care. Pain and anxiety medication given as requested with good result.
--- NOTE | 2017-06-13 20:07 | NUR ---
Opening notes Received report at bedside. Patient AAOx4. No signs of acute distress or SOB noted at this time. Patient laying down talking with at bedside. Bed in lowest position and bed alarm on with 2 side rail up and call light with patient.
[2017-06-13] MEDS: BENAZEPRIL HCL 20 MG TABLET (LOTENSIN) PO SCH (20:47)
[2017-06-13] MEDS: ASPIRIN 81 MG TAB.CHEW PO SCH (20:53)
[2017-06-13] MEDS: CHOLECALCIFEROL (VITAMIN D3) 2,000 UNIT TABLET PO SCH (21:00)
[2017-06-13] MEDS: OMEGA-3/DHA/EPA/FISH OIL 1 GM CAPSULE PO SCH (21:00)
[2017-06-13] MEDS: NACL 0.9% 1,000 ML IV SCH (22:00)
--- NOTE | 2017-06-13 22:00 | NUR ---
RN notes Patient in bed with at bedside. No acute distress or SOB noted. Patient denies pain at this time. Bed in lowest position and call light with patient.
[2017-06-14] MEDS: DIPHENHYDRAMINE INJ 50 MG/ML VIAL IVP SCH ×4 (00:07→17:18)
[2017-06-14] MEDS: AMPICILLIN SODIUM/SULBACTAM NA 3 GM in NS 100 ML IV SCH ×4 (00:08→17:18)
--- NOTE | 2017-06-14 00:45 | NUR ---
C/O pain Patient C/O. Morphine given. Educated patient on use of call light and if the patient want to get out of bed. Patient verbalized understanding. Bed in lowest position and call light with patient.
[2017-06-14] MEDS: MORPHINE 2 MG/ML INJ. SYRINGE IVP PRN ×3 (00:58→18:08)
--- NOTE | 2017-06-14 03:48 | NUR ---
Rounds Patient in bed sleeping with no SOB or acute distress noted at this time. Bed in lowest position and call light with patient.
--- NOTE | 2017-06-14 06:49 | NUR ---
Closing notes Administered AM medication, Patient tolerated well. No SOB noted at this time. Patient C/O pain in throat. Administered Morphine 2mg IVP. IV noted to right wrist patent with no redness noted. Will endorse to the day shift patient's plan of care.
[2017-06-14 08:00] VITALS: BP_SYST 145
--- NOTE | 2017-06-14 08:00 | NUR ---
Opening Note Report received form the [facility] shift nurse. Patient is currently sitting in bed. IV is on the left wrist 24g running [id number]. Course tremors noted on all extremities. Call light is within reach and bed is in low position. Will continue to monitor.
[2017-06-14] MEDS: LORazepam 1 MG TABLET PO SCH ×4 (08:13→21:43)
[2017-06-14] MEDS: LORazepam 2 MG/ML VIAL IVP PRN ×4 (08:29→21:29)
[2017-06-14] MEDS: CARVEDILOL 6.25 MG TABLET (COREG) PO SCH ×2 (08:31→21:28)
[2017-06-14] MEDS: MECLIZINE HCL 25 MG TABLET (ANITVERT) PO SCH ×3 (08:31→21:26)
[2017-06-14] MEDS: HYDROCHLOROTHIAZIDE 25 MG TABLET (HCTZ) PO SCH (08:32)
--- NOTE | 2017-06-14 10:00 | NUR ---
Rounds Ativan IVP given per patient's request. Will reassess.
[2017-06-14 12:00] VITALS: BP_SYST 139
--- NOTE | 2017-06-14 12:13 | NUR ---
Nutrition F/U Admitting Diagnosis Dehydration, ARF Reviewed Pertinent Medical/Surgical Hx Medical Record Patient Medical History Comment: PMH: HTN, anxiety per MD notes Per attending MD progress note 06/13/17: sepsis, severe acute pharyngitis, cervical lymphadenitis, dehydration, KASSY/vasomotor nephropathy, dysphagia, HTN, obesity, anxiety per MD notes Subjective Information Pt seen resting in bed at time of RD visit. Pt reported improving appetite and less difficulty swallowing foods. Pt still reported a bit of pain while eating. Per EMR, PO Intakes: 60% average x5 meals. Last BM x1 06/13/17. I/O: 800/0 (+800 ml) per 12 hours. Current diet is adequate and appropriate. Pt was not interested in nutrition education. Current Diet Order/Nutrition Support Mechanical soft x 3 days Patient/Significant Other Able To Verbalize Education Provided Not Indicated Pertinent Medications VIT D3, hydrodiuril Pertinent Labs WBC 8.5 WNL (improved), ALB 3.1 L (05/31/17), BUN 10 WNL (improved), BG 111 H Height (Feet) 5 feet Height (Inches) 5.00 inches Weight (Pounds) 231 pounds (admission) BEDSCALE WT: 244 lb (06/14/17) -- likely inaccurate d/t multiple linens on bed Weight (Calculated Kilograms) 104.330154 kilograms Patient Weight 104.78 kg Body Mass Index 38.44 kg/m2 Usual Weight 232 lbs %UBW 99 %IBW 184 [place]/Adjusted Body Weight IBW: 125 lb, 57 kg. Adj IBW (obesity): 152 lb, 69 kg Recent Weight Change No Weight Status Obese Gastrointestinal Symptoms None Last BM 06/13/17 Difficulty With: Swallowing Food Allergies Yes - Tomato -- noted in [employer] website and [employer] Usual Diet At Home Regular Skin Integrity Comment: Ean scale: 20; no skin issues noted Current % PO Poor (25-49%) Estimated Energy Expenditure (kcals/day) 1446-5619 kcal/day (25-30 kcal/kg IBW for maintenance) Estimated Protein Required (g/day) 46-57 gm/day (0.8-1 gm/kg IBW for maintenance) NEW Estimated Fluid Required (l/day) 3 L/day (30 ml/kg CBW for maintenance) -- ARF seemingly resolved Problem/Etiology/Signs/Symptoms Inadequate nutritional intakes related to lack of preference for foods provided as evidenced by pt refusal of pureed diet and 38% average PO intakes x2 meals. *improving Swallowing difficulty related to severe acute pharyngitis as evidenced by pt report of swollen throat. *improving Expected Outcomes/Goals - Monitor appetite and PO intakes w/ goal of pt meeting greater than 50% of estimated nutritional needs, labs trending WNL, normal GI function, and skin integrity/wt maintenance Dietitian Recommendations * Recommend continuing mechanical soft diet per MD Follow Up Moderate Risk: F/U in 3-5 days
--- NOTE | 2017-06-14 12:20 | NUR ---
Dietitian Recommendations * Recommend continuing mechanical soft diet per LP, RD Please refer to Nutrition F/U for details.
--- NOTE | 2017-06-14 12:20 | NUR ---
Rounds Patient is eating lunch in bed. No sings of distress noted.
--- NOTE | 2017-06-14 14:15 | NUR ---
Rounds Patient is currently resting in bed. Call light is within reach.
[2017-06-14 16:09] VITALS: BP_SYST 146
--- NOTE | 2017-06-14 16:21 | NUR ---
Rounds Patient is resting in bed. Call light is within reach.
--- NOTE | 2017-06-14 18:52 | NUR ---
Closing Note Patient is resting in bed. is at the bedside. Instructed the patient not to get out of bed by herself due to all the pain and anxiety medications she is requesting. Iv is on the left hand 24g currently saline locked. Will endorse care to the oncoming shift.
[2017-06-14 20:00] VITALS: BP_SYST 149
--- NOTE | 2017-06-14 20:16 | NUR ---
Opening notes Received report from day shift nurse. Patient in bed sleeping. No acute distress or SOB noted at this time. Antibiotic running to left wrist IV with no infiltration noted. Bed in low position and call light with patient. at bedside.
[2017-06-14] MEDS: CHOLECALCIFEROL (VITAMIN D3) 2,000 UNIT TABLET PO SCH (21:26)
[2017-06-14] MEDS: ASPIRIN 81 MG TAB.CHEW PO SCH (21:26)
[2017-06-14] MEDS: OMEGA-3/DHA/EPA/FISH OIL 1 GM CAPSULE PO SCH (21:26)
[2017-06-14] MEDS: BENAZEPRIL HCL 20 MG TABLET (LOTENSIN) PO SCH (21:27)
[2017-06-14] MEDS: NACL 0.9% 1,000 ML IV SCH (21:44)
--- NOTE | 2017-06-14 22:36 | NUR ---
Notes Patient in bed sleeping. No SOB or acute distress noted at this time. No facial grimacing at this time. Bed in low position and call light with patient.
[2017-06-15] MEDS: AMPICILLIN SODIUM/SULBACTAM NA 3 GM in NS 100 ML IV SCH ×4 (00:03→17:12)
[2017-06-15] MEDS: DIPHENHYDRAMINE INJ 50 MG/ML VIAL IVP SCH ×4 (00:03→17:14)
[2017-06-15] MEDS: MORPHINE 2 MG/ML INJ. SYRINGE IVP PRN ×2 (00:04→08:50)
--- NOTE | 2017-06-15 00:10 | NUR ---
C/O pain Patient C/O pain min throat. Administered Morphine PRN as ordered. Patient tolerated well. No SOB or acute distress noted at this time. Educated patient to use call light if need to use restroom. Patient verbalized understanding. Bed in lowest position and call light with patient.
[2017-06-15 00:35] VITALS: BP_SYST 141
--- NOTE | 2017-06-15 02:30 | NUR ---
Rounds Patient in bed sleeping with no acute distress or SOB noted at this time. Bed in low position and call light with patient.
--- NOTE | 2017-06-15 04:30 | NUR ---
Rounds Patient in bed sleeping with no acute distress or SOB noted at this time. Bed in low position and call light with patient.
[2017-06-15] MEDS: LORazepam 2 MG/ML VIAL IVP PRN ×2 (05:57→09:56)
--- NOTE | 2017-06-15 06:46 | NUR ---
Closing notes Patient in bed sleeping comfortably. No acute distress noted. No SOB noted at this time. Bed in lowest position and call light with patient. Will endorse to day shift patient's plan of care.
[2017-06-15 08:10] VITALS: BP_SYST 133
--- NOTE | 2017-06-15 08:10 | NUR ---
INITIAL NOTE RECEIVED REPORT AND PATIENT FROM PHARMACY DATA ANALYST NURSE. PATIENT RESTING IN BED COMFORTABLY, EASY TO WAKE UP. NO RESPIRATORY DISTRESS NOTED, VS STABLE. SAFETY PRECAUTIONS MAINTAINED, BED LOCKED AND ON LOWEST POSITION, CALL LIGHT ON HAND, WILL MONITOR CLOSELY.
--- NOTE | 2017-06-15 08:30 | NUR ---
PT C/O PAIN PATIENT COMPLAIN OF LEFT SIDE OF THE NECK PAIN WITH INTENSITY OF 9/10, PRN PAIN MEDICATION GIVEN ORDERED, PATIENT ALSO REFUSED ATIVAN PO BUT REQUESTED ATIVAN IVP, WILL ADMINISTER MEDICATION ON APPROPRIATE TIME PER ORDER, PATIENT IS AWARE.
[2017-06-15] MEDS: HYDROCHLOROTHIAZIDE 25 MG TABLET (HCTZ) PO SCH (08:48)
[2017-06-15] MEDS: MECLIZINE HCL 25 MG TABLET (ANITVERT) PO SCH ×2 (08:48→14:10)
[2017-06-15] MEDS: CARVEDILOL 6.25 MG TABLET (COREG) PO SCH (08:49)
[2017-06-15] MEDS: LORazepam 1 MG TABLET PO SCH ×3 (09:00→17:13)
--- NOTE | 2017-06-15 10:35 | NUR ---
ROUNDS PATIENT RESTING IN BED, EASY TO AROUSE, VERBALLY RESPONSIVE. NO SHORTNESS OF BREATH NOTED. IV ON THE LEFT HAND WITH 24GAUGE PATENT, FLUIDS INFUSING VIA PUMP. PATIENT IS COMFORTABLE AT THIS TIME, DENIES ANY PAIN OR DISCOMFORT. CALL LIGHT ON HAND, WILL MONITOR CLOSELY.
[2017-06-15 12:00] VITALS: BP_SYST 125
[2017-06-15] MEDS: NACL 0.9% 1,000 ML IV SCH (12:18)
--- NOTE | 2017-06-15 13:10 | NUR ---
ROUNDS PATIENT WALKING IN THE HALLWAY WITH THE IV POLL, DENIES ANY PAIN AT THIS TIME. REMINDED OF SAFETY PRECAUTIONS, TO CALL FOR SAFETY FOR ASSISTANCE, TO MAKE SURE WALKWAY IS CLEAR, TO TRANSFER SLOWLY FROM DIFFERENT POSITIONS. WILL CONTINUE TO MONITOR.
--- NOTE | 2017-06-15 15:00 | NUR ---
MD ROUNDS DR. GRIFFITHS IS DOING HIS ROUNDS, NOTIFIED MD THAT THE PATIENT HAS BEEN REFUSING HER ROUTINE ATIVAN BY MOUTH, STATED THAT "SHE NEEDS TO TAKE HER PO MEDS BECAUSE SHE'S NOT GOING TO HAVE AN IV LINE WHEN SHE GOES HOES". WILL LET PATIENT KNOW.
--- NOTE | 2017-06-15 15:14 | NUR ---
ROUNDS PATIENT IN BED WITH NO RESPIRATORY DISTRESS, NOTIFIED PATIENT THAT DR. TUNDE DAVID WANTS HER TO START TAKING ATIVAN BY MOUTH INSTEAD OF ATIVAN IV TO PREPARE HER WHEN SHE GOES HOME. PATIENT UNDERSTANDS AND AGREES TO TAKE MEDICATION BY MOUTH.
[2017-06-15 16:00] VITALS: BP_SYST 129
--- NOTE | 2017-06-15 17:00 | NUR ---
rounds PATIENT IN BED, AWAKE, ALERT VERBALLY RESPONSIVE. DUE MEDICATIONS GIVEN ORDERED. PATIENT TOOK ROUTINE ATIVAN BY MOUTH, TOLERATED WELL. NO SHORTNESS OF BREATH OBSERVED. DENIES PAIN AT THIS TIME. CALL LIGHT ON HAND, WILL CONTINUE TO MONITOR.
--- NOTE | 2017-06-15 18:23 | NUR ---
CLOSING NOTE PATIENT SITTING UP IN BED EATING DINNER. NO SHORTNESS OF BREATH NOTED, VS STABLE, IV INTACT, PATENT WITH MEDICATIONS INFUSING. DENIES PAIN AT THIS TIME, ALL NEEDS MET. WILL ENDORSE PLAN OF CARE TO NOC NURSE. BED AT LOWEST POSITION, CALL LIGHT WITHIN REACH.
--- NOTE | 2017-06-15 20:00 | NUR ---
OPENING NOTE PT A/O X4, RESTING IN BED W/ FAMILY AT BEDSIDE, BREATHING EVEN AND UNLABORED ON ROOM AIR, NO SIGNS OF DISTRESS NOTED AT THIS TIME. IV SITE IS CLEAN DRY AND INTACT, IVF INFUSING WELL. DR. GRIFFITHS PRESENT AND SAW PT, DISCHARGE ORDERED, PT AWARE AND ANXIOUS TO GO HOME. BED IS LOCKED IN LOWEST POSITION, 2 SIDE RAILS UP, CALL LIGHT W/ PT AND PT INSTRUCTED TO CALL IF ASSISTANCE NEEDED. WILL CONTINUE TO MONITOR PT, WELL PREPARE PT FOR DISCHARGE.
[2017-06-15 20:10] VITALS: BP_SYST 149
[2017-06-15 20:18] VITALS: BP_SYST 149
--- NOTE | 2017-06-15 20:40 | NUR ---
D/C Patient Patient given medication reconciliation form and D/C instructions. Exit Care provided. Patient verbalized understanding. MD discussed with patient the results and treatment provided. Ambulatory with steady gait for discharge to home. Patient in stable condition, ID band removed. IV catheter removed, intact and dressing applied, no active bleeding. Rx of Augmentin and Protonix given. Patient educated on pain management. All belongings sent with patient.
== END 2017-06-15 20:38 | disposition home or self-care (01) | DRG 871 ==
LOC: SMU 18:59
PROVIDERS: ADMIT Internal Medicine; ATTEND Internal Medicine
DX: A41.9 Sepsis, unspecified organism (principal); N17.0 Acute kidney failure with tubular necrosis; I10 Essential (primary) hypertension; F41.9 Anxiety disorder, unspecified; E86.0 Dehydration; J02.9 Acute pharyngitis, unspecified; I88.9 Nonspecific lymphadenitis, unspecified; E66.9 Obesity, unspecified; Z88.1 Allergy status to other antibiotic agents; Z91.018 Allergy to other foods; Z91.09 Other allergy status, other than to drugs and biological substances; Z68.38 Body mass index [BMI] 38.0-38.9, adult
CPT/HCPCS: 36415; 80048; 80053; 81003; 82550-TC; 83036; 83880; 84439; 84443-TC; 85025; 85651-TC; 86308-TC; J0295; J1200; J2060; J2270; J7030; J8597

== ENCOUNTER 2017-07-04 12:33 | Inpatient (IN) | payer OTHER ==
[~2017-07-04] VITALS: Ht 165.1 cm; Wt 98.4 kg
[2017-07-04 12:43] VITALS: BP_SYST 136
[2017-07-04] MEDS ORDERED: PANTOPRAZOLE SODIUM 40 MG/VIAL (PROTONIX) IVP ONE (13:00)
[2017-07-04 13:38] LABS: BASOPHILS % (AUTO) 0.4 % (0.0-2.0); EOSINOPHILS # (AUTO) 0.1 K/uL (0.0-0.4); EOSINOPHILS % (AUTO) 1.5 % (0.0-4.0); HEMOGLOBIN 13.6 g/dL (12.0-16.0); LYMPHOCYTES # (AUTO) 2.1 K/uL (1.0-5.5); LYMPHOCYTES % (AUTO) 21.9 % (20.5-51.5); MEAN CORPUSCULAR HEMOGLOBIN 29 pg (27-31); MEAN CORPUSCULAR HGB CONC 34 % (32-36); MEAN CORPUSCULAR VOLUME 86 fL (79.0-98.0); MONOCYTES # (AUTO) 0.7 K/uL (0.0-1.0); MONOCYTES % (AUTO) 7.9 % (1.7-9.3); NEUTROPHILS # (AUTO) 6.6 K/uL (1.8-7.7); NEUTROPHILS % (AUTO) 68.3 % (40.0-70.0); PLATELET COUNT (AUTO) 318 K/uL (130-430); RED BLOOD CELL COUNT(AUTO) 4.66 MIL/uL (4.2-6.2); RED CELL DISTRIBUTION WIDTH 11.7 % (9.0-15.0); WHITE BLOOD COUNT (AUTO) 9.5 K/uL (4.8-10.8)
[2017-07-04 13:51] LABS: CALCIUM 8.9 mg/dL (8.4-11.0); CREATININE 1.29 mg/dL (0.55-1.30); POTASSIUM 3.5 mmol/L (3.5-5.1)
[2017-07-04 13:55] LABS: ALBUMIN 3.5 g/dL (3.4-4.8); TOTAL BILIRUBIN 0.3 mg/dL (0.0-1.0)
[2017-07-04 13:59] LABS: INR 1.1 (0.8-1.2)
[2017-07-04] MEDS: LORazepam 2 MG/ML VIAL IVP PRN ×3 (14:06→22:18)
[2017-07-04] MEDS ORDERED: COMMUNICATION ORDER XX ONE (14:45)
[2017-07-04 15:20] VITALS: BP_SYST 122
[2017-07-04] MEDS: MECLIZINE HCL 25 MG TABLET (ANITVERT) PO SCH ×2 (15:48→21:04)
[2017-07-04] MEDS: ONDANSETRON HCL 4 MG/2 ML VIAL IVP PRN ×2 (18:06→22:18)
[2017-07-04 20:00] VITALS: BP_SYST 115
[2017-07-04] MEDS: BENAZEPRIL HCL 20 MG TABLET (LOTENSIN) PO SCH (21:03)
[2017-07-04] MEDS: ASPIRIN 81 MG TAB.CHEW PO SCH (21:04)
[2017-07-04] MEDS: CARVEDILOL 6.25 MG TABLET (COREG) PO SCH (21:04)
[2017-07-04] MEDS: CHOLECALCIFEROL (VITAMIN D3) 2,000 UNIT TABLET PO SCH (21:04)
[2017-07-04] MEDS: PANTOPRAZOLE SODIUM 40 MG/VIAL (PROTONIX) IVP SCH (21:05)
[2017-07-05 00:14] VITALS: BP_SYST 104
[2017-07-05] MEDS: LORazepam 2 MG/ML VIAL IVP PRN ×4 (02:45→20:07)
[2017-07-05 06:26] LABS: CALCIUM 8.9 mg/dL (8.4-11.0); CREATININE 0.99 mg/dL (0.55-1.30); POTASSIUM 3.1 mmol/L (3.5-5.1); THYROID STIMULATING HORMONE 0.54 uIu/mL (0.34-4.82)
[2017-07-05 07:11] LABS: BASOPHILS % (AUTO) 0.4 % (0.0-2.0); EOSINOPHILS # (AUTO) 0.2 K/uL (0.0-0.4); EOSINOPHILS % (AUTO) 2.6 % (0.0-4.0); HEMATOCRIT 40.3 % (36-48); HEMOGLOBIN 13.4 g/dL (12.0-16.0); LYMPHOCYTES # (AUTO) 3.1 K/uL (1.0-5.5); LYMPHOCYTES % (AUTO) 37.3 % (20.5-51.5); MEAN CORPUSCULAR HEMOGLOBIN 29 pg (27-31); MEAN CORPUSCULAR HGB CONC 33 % (32-36); MEAN CORPUSCULAR VOLUME 87 fL (79.0-98.0); MONOCYTES # (AUTO) 0.7 K/uL (0.0-1.0); MONOCYTES % (AUTO) 8.3 % (1.7-9.3); NEUTROPHILS # (AUTO) 4.3 K/uL (1.8-7.7); NEUTROPHILS % (AUTO) 51.4 % (40.0-70.0); PLATELET COUNT (AUTO) 251 K/uL (130-430); RED BLOOD CELL COUNT(AUTO) 4.65 MIL/uL (4.2-6.2); RED CELL DISTRIBUTION WIDTH 11.6 % (9.0-15.0); WHITE BLOOD COUNT (AUTO) 8.3 K/uL (4.8-10.8)
[2017-07-05 07:45] VITALS: BP_SYST 119
[2017-07-05] MEDS: PANTOPRAZOLE SODIUM 40 MG/VIAL (PROTONIX) IVP SCH ×2 (08:17→21:09)
[2017-07-05] MEDS ORDERED: POTASSIUM CHLORIDE 40 MEQ, LIDOCAINE JECT 2% PF 100 MG 50 MG in NS 250 ML IV ONE (11:45)
[2017-07-05] MEDS: MEPERIDINE HCL/PF 100 MG/ML AMP ONE ×2 (11:48→11:50)
[2017-07-05] MEDS: MIDAZOLAM HCL 5 MG/5 ML VIAL ONE ×3 (11:48→11:52)
[2017-07-05 11:50] VITALS: BP_SYST 137
[2017-07-05] MEDS ORDERED: IOHEXOL 100 ML IV ONE (16:10)
[2017-07-05] MEDS: MECLIZINE HCL 25 MG TABLET (ANITVERT) PO SCH ×2 (16:20→21:10)
[2017-07-05] MEDS: HYDROCHLOROTHIAZIDE 25 MG TABLET (HCTZ) PO SCH (16:53)
[2017-07-05] MEDS: CARVEDILOL 6.25 MG TABLET (COREG) PO SCH ×2 (16:54→21:00)
[2017-07-05 17:08] VITALS: BP_SYST 120
[2017-07-05 20:00] VITALS: BP_SYST 115
[2017-07-05] MEDS: ASPIRIN 81 MG TAB.CHEW PO SCH (21:09)
[2017-07-05] MEDS: CHOLECALCIFEROL (VITAMIN D3) 2,000 UNIT TABLET PO SCH (21:10)
[2017-07-05] MEDS: POTASSIUM CHLORIDE 20 MEQ TAB.PRT.SR PO SCH (21:10)
[2017-07-05] MEDS: BENAZEPRIL HCL 20 MG TABLET (LOTENSIN) PO SCH (21:11)
[2017-07-06 00:18] VITALS: BP_SYST 107
[2017-07-06] MEDS: LORazepam 2 MG/ML VIAL IVP PRN ×3 (00:26→09:47)
[2017-07-06 08:00] VITALS: BP_SYST 103
[2017-07-06] MEDS: CARVEDILOL 6.25 MG TABLET (COREG) PO SCH (09:00)
[2017-07-06] MEDS: PANTOPRAZOLE SODIUM 40 MG/VIAL (PROTONIX) IVP SCH (09:33)
[2017-07-06] MEDS: MECLIZINE HCL 25 MG TABLET (ANITVERT) PO SCH ×2 (09:33→15:44)
[2017-07-06] MEDS: POTASSIUM CHLORIDE 20 MEQ TAB.PRT.SR PO SCH (09:33)
[2017-07-06] MEDS: HYDROCHLOROTHIAZIDE 25 MG TABLET (HCTZ) PO SCH (09:35)
[2017-07-06 11:28] LABS: BASOPHILS % (AUTO) 0.3 % (0.0-2.0); EOSINOPHILS # (AUTO) 0.2 K/uL (0.0-0.4); EOSINOPHILS % (AUTO) 2.6 % (0.0-4.0); HEMATOCRIT 34.6 % (36-48); LYMPHOCYTES % (AUTO) 32.7 % (20.5-51.5); MEAN CORPUSCULAR HEMOGLOBIN 29 pg (27-31); MEAN CORPUSCULAR HGB CONC 35 % (32-36); MEAN CORPUSCULAR VOLUME 85 fL (79.0-98.0); MONOCYTES # (AUTO) 0.6 K/uL (0.0-1.0); MONOCYTES % (AUTO) 9.6 % (1.7-9.3); NEUTROPHILS # (AUTO) 3.3 K/uL (1.8-7.7); NEUTROPHILS % (AUTO) 54.8 % (40.0-70.0); PLATELET COUNT (AUTO) 246 K/uL (130-430); RED BLOOD CELL COUNT(AUTO) 4.08 MIL/uL (4.2-6.2); RED CELL DISTRIBUTION WIDTH 11.9 % (9.0-15.0); WHITE BLOOD COUNT (AUTO) 6.1 K/uL (4.8-10.8)
[2017-07-06 11:43] LABS: CALCIUM 8.7 mg/dL (8.4-11.0); CREATININE 0.9 mg/dL (0.55-1.30); POTASSIUM 3.8 mmol/L (3.5-5.1)
[2017-07-06 12:49] VITALS: BP_SYST 99
[2017-07-06 16:46] VITALS: BP_SYST 117
[2017-07-06] MEDS ORDERED: PRO40 PO (17:23)
[2017-07-06 17:33] VITALS: BP_SYST 117
== END 2017-07-06 17:44 | disposition home or self-care (01) | DRG 392 ==
LOC: SMU 12:33
PROVIDERS: ADMIT Internal Medicine; ATTEND Internal Medicine
PROC: 0DB68ZX Excision of Stomach, Via Natural or Artificial Opening Endoscopic, Diagnostic (ICD-10-PCS; principal; 2017-07-05 11:00)
DX: K29.00 Acute gastritis without bleeding (principal); E66.9 Obesity, unspecified; E78.5 Hyperlipidemia, unspecified; E87.6 Hypokalemia; I10 Essential (primary) hypertension; I25.10 Atherosclerotic heart disease of native coronary artery without angina pectoris; F41.9 Anxiety disorder, unspecified; Z88.1 Allergy status to other antibiotic agents; Z88.8 Allergy status to other drugs, medicaments and biological substances; Z87.891 Personal history of nicotine dependence
CPT/HCPCS: 36415; 70491-TC; 80048; 80053; 80061; 83690-TC; 84443-TC; 85025; 85610-TC; 87081; 88305; 88312; 88313; C9113; J2060; J2175; J2250; J2405; J3480; J7030; J7050; J8597; Q9967

== ENCOUNTER 2017-08-12 09:27 | Outpatient (CLI) | payer OTHER ==
[~2017-08-12 09:27] MED LIST changes: -CEFAZOLIN 1 GM IVPB PREMIX 50 ML IV ONE; +PRO40 PO
== END 2017-08-12 22:11 | disposition home or self-care (01) ==
LOC: SMA 09:27
PROVIDERS: ATTEND Specialist
DX: N63.0 Unspecified lump in unspecified breast (principal)
CPT/HCPCS: 76641; 77066

== ENCOUNTER 2017-09-24 10:21 | Outpatient (CLI) | payer OTHER ==
[2017-09-24] MEDS ORDERED: BARIUM SULFATE 135 ML SUSP.RECON (E-Z-HD) PO ONE (11:22)
== END 2017-09-24 20:49 | disposition home or self-care (01) ==
LOC: SRD 10:21
PROVIDERS: ATTEND Otolaryngology
DX: N63.0 Unspecified lump in unspecified breast (principal); R13.10 Dysphagia, unspecified; R25.2 Cramp and spasm
CPT/HCPCS: 74230

== ENCOUNTER 2017-11-05 05:35 | Day surgery (SDC) | payer OTHER ==
[2017-11-03 14:59] LABS: BASOPHILS # (AUTO) 0.1 K/uL (0.0-0.2); BASOPHILS % (AUTO) 0.8 % (0.0-2.0); EOSINOPHILS # (AUTO) 0.1 K/uL (0.0-0.4); EOSINOPHILS % (AUTO) 1.5 % (0.0-4.0); HEMATOCRIT 37.5 % (36-48); HEMOGLOBIN 12.1 g/dL (12.0-16.0); LYMPHOCYTES # (AUTO) 2.3 K/uL (1.0-5.5); MEAN CORPUSCULAR HEMOGLOBIN 26 pg (27-31); MEAN CORPUSCULAR HGB CONC 32 % (32-36); MEAN CORPUSCULAR VOLUME 80 fL (79.0-98.0); MONOCYTES # (AUTO) 0.5 K/uL (0.0-1.0); NEUTROPHILS # (AUTO) 4.7 K/uL (1.8-7.7); NEUTROPHILS % (AUTO) 61.7 % (40.0-70.0); PLATELET COUNT (AUTO) 379 K/uL (130-430); RED BLOOD CELL COUNT(AUTO) 4.72 MIL/uL (4.2-6.2); RED CELL DISTRIBUTION WIDTH 13.9 % (9.0-15.0); WHITE BLOOD COUNT (AUTO) 7.7 K/uL (4.8-10.8)
[2017-11-03 15:25] LABS: ALBUMIN 3.3 g/dL (3.4-4.8); CALCIUM 8.6 mg/dL (8.4-11.0); CREATININE 0.9 mg/dL (0.55-1.30); POTASSIUM 4.1 mmol/L (3.5-5.1); TOTAL BILIRUBIN 0.5 mg/dL (0.0-1.0)
[~2017-11-05] VITALS: Ht 167.6 cm; Wt 99.8 kg
[2017-11-05] MEDS ORDERED: MEPERIDINE HCL/PF 50 MG/ML AMP IVP PRN (06:45)
[2017-11-05] MEDS ORDERED: MIDAZOLAM HCL 2 MG/2 ML VIAL (VERSED) IVP ONE (06:45)
[2017-11-05] MEDS ORDERED: MIDAZOLAM HCL 5 MG/5 ML VIAL IVP ONE ×2 (06:45)
[2017-11-05] MEDS ORDERED: MIDAZOLAM HCL 5 MG/5 ML VIAL ONE (06:50)
[2017-11-05] MEDS ORDERED: MEPERIDINE HCL/PF 100 MG/ML AMP ONE (06:50)
[2017-11-05] MEDS ORDERED: MEPERIDINE HCL/PF 100 MG/ML AMP IV PRN (07:19)
[2017-11-05] MEDS ORDERED: LR 1,000 ML IV SCH (08:03)
[2017-11-05] MEDS ORDERED: MORPHINE 4 MG/ML INJ. SYRINGE IVP PRN ×4 (08:15→08:30)
[2017-11-05] MEDS ORDERED: METOCLOPRAMIDE HCL 10 MG/2 ML VIAL IVP PRN (08:15)
[2017-11-05] MEDS ORDERED: ACETAMINOPHEN 325 MG TABLET PO PRN (08:30)
[2017-11-05] MEDS ORDERED: ONDANSETRON HCL 4 MG/2 ML VIAL IVP PRN (08:30)
[2017-11-05] MEDS ORDERED: HYDROmorphone 2 MG/ML VIAL IVP PRN (08:30)
[2017-11-05] MEDS ORDERED: HYDROcodone/ACETAMIN 5-325 MG TAB (NORCO/ VICODIN) PO PRN (08:30)
[2017-11-05] MEDS ORDERED: LR 1,000 ML IV.SOLN IV ONE (08:40)
[2017-11-05] MEDS ORDERED: WATER FOR IRRIGATION,STERILE 1,000 ML IRRIG.SOLN IR ONE (08:40)
[2017-11-05] MEDS ORDERED: CEFAZOLIN 2 GM IVPB PREMIX 50 ML IV ONE (08:40)
[2017-11-05] MEDS ORDERED: SEVOFLURANE 15 MIN GAS INH ONE (08:40)
[2017-11-05] MEDS ORDERED: fentaNYL CITRATE/PF 100 MCG/2 ML AMP IVP ONE (08:40)
[2017-11-05] MEDS ORDERED: MIDAZOLAM HCL 5 MG/ML VIAL (VERSED) IV ONE (08:40)
[2017-11-05] MEDS ORDERED: PROPOFOL 200MG/ 20ML VIAL (DIPRIVAN) IV ONE ×2 (08:40)
[2017-11-05] MEDS ORDERED: ONDANSETRON HCL 4 MG/2 ML VIAL IVP ONE (08:40)
[2017-11-05] MEDS ORDERED: BUPIVACAINE /PF 0.25% 30 ML VIAL INJ ONE (08:40)
[2017-11-05] MEDS ORDERED: ROCURONIUM BROMIDE 10 MG/ML (ZEMURON) IV ONE (08:40)
[2017-11-05] MEDS ORDERED: MORPHINE 4 MG/ML INJ. SYRINGE ONE (09:03)
[2017-11-05 09:30] VITALS: BP_SYST 105
[2017-11-05] MEDS ORDERED: HYDROcodone/ACETAMIN 5-325 MG TAB (NORCO/ VICODIN) ONE (12:04)
== END 2017-11-05 13:07 | disposition home or self-care (01) ==
LOC: SMU 05:35 → SDS 05:35
PROVIDERS: ATTEND Surgery
DX: D24.1 Benign neoplasm of right breast (principal); D24.2 Benign neoplasm of left breast; D17.79 Benign lipomatous neoplasm of other sites; E66.3 Overweight; Z87.891 Personal history of nicotine dependence; I10 Essential (primary) hypertension; K21.9 Gastro-esophageal reflux disease without esophagitis; G62.9 Polyneuropathy, unspecified; M19.90 Unspecified osteoarthritis, unspecified site; F41.9 Anxiety disorder, unspecified
CPT/HCPCS: 19120; 36415; 71046; 80053; 85025; 88305; 93005; J0690; J2175; J2250 ×2; J2270; J2405; J2704; J3010; J3490; J7120

== ENCOUNTER 2018-02-19 11:18 | Outpatient (CLI) | payer OTHER ==
[2018-02-19 12:40] LABS: BASOPHILS # (AUTO) 0.1 K/uL (0.0-0.2); BASOPHILS % (AUTO) 1.1 % (0.0-2.0); EOSINOPHILS # (AUTO) 0.2 K/uL (0.0-0.4); EOSINOPHILS % (AUTO) 2.8 % (0.0-4.0); HEMATOCRIT 38.9 % (36-48); HEMOGLOBIN 12.3 g/dL (12.0-16.0); LYMPHOCYTES # (AUTO) 2.3 K/uL (1.0-5.5); LYMPHOCYTES % (AUTO) 29.5 % (20.5-51.5); MEAN CORPUSCULAR HEMOGLOBIN 26 pg (27-31); MEAN CORPUSCULAR HGB CONC 32 % (32-36); MEAN CORPUSCULAR VOLUME 82 fL (79.0-98.0); MONOCYTES # (AUTO) 0.4 K/uL (0.0-1.0); MONOCYTES % (AUTO) 4.6 % (1.7-9.3); PLATELET COUNT (AUTO) 404 K/uL (130-430); RED BLOOD CELL COUNT(AUTO) 4.72 MIL/uL (4.2-6.2); RED CELL DISTRIBUTION WIDTH 11.6 % (9.0-15.0)
[2018-02-19 12:56] LABS: ALBUMIN 3.4 g/dL (3.4-4.8); CALCIUM 8.9 mg/dL (8.4-11.0); CREATININE 1.15 mg/dL (0.55-1.30); POTASSIUM 4.5 mmol/L (3.5-5.1); THYROID STIMULATING HORMONE 1.14 uIu/mL (0.34-4.82); TOTAL BILIRUBIN 0.4 mg/dL (0.0-1.0)
[2018-02-20 08:50] LABS: BILIRUBIN,URINE NEGATIVE (NEGATIVE); BLOOD, URINE NEGATIVE (NEGATIVE); CLARITY/URINE CLEAR (CLEAR); COLOR,URINE YELLOW (YELLOW); GLUCOSE,URINE NEGATIVE (NEGATIVE); KETONES,URINE NEGATIVE (NEGATIVE); LEUKOCYTE ESTERASE ,URINE NEGATIVE (NEGATIVE); NITRITE, URINE NEGATIVE (NEGATIVE); PH,URINE 5.5 (5.0-8.0); PROTEIN URINE NEGATIVE (NEGATIVE); UROBILINOGEN,URINE 0.2 (0.2-1.0)
[2018-02-20 14:43] LABS: HEMOGLOBIN A1C 6.2 % (4.8-5.6)
== END 2018-02-19 19:23 | disposition home or self-care (01) ==
LOC: SLB 11:18
PROVIDERS: ATTEND Internal Medicine
DX: Z00.01 Encounter for general adult medical examination with abnormal findings (principal); I10 Essential (primary) hypertension
CPT/HCPCS: 36415; 80053; 80061; 81003; 82306; 82607; 83036; 84443-TC; 85025; 87086

== ENCOUNTER 2018-03-06 09:49 | Outpatient (CLI) | payer OTHER ==
[2018-03-06] MEDS ORDERED: IOHEXOL 100 ML IV ONE (10:04)
== END 2018-03-06 20:09 | disposition home or self-care (01) ==
LOC: SCT 09:49
PROVIDERS: ATTEND Internal Medicine
DX: R13.10 Dysphagia, unspecified (principal); M47.892 Other spondylosis, cervical region; I10 Essential (primary) hypertension; M19.90 Unspecified osteoarthritis, unspecified site; Z72.89 Other problems related to lifestyle; Z79.899 Other long term (current) drug therapy
CPT/HCPCS: 70491; Q9967

== ENCOUNTER 2018-04-30 14:39 | Inpatient (IN) | payer OTHER ==
[~2018-04-30] VITALS: Ht 167.6 cm; Wt 98.9 kg
[2018-04-30] MEDS ORDERED: PHENOL/ORAL ANESTHETIC 177 ML BOTTLE MM PRN (15:00)
[2018-04-30] MEDS ORDERED: DIPHENHYDRAMINE INJ 50 MG/ML VIAL IVP PRN (15:00)
[2018-04-30] MEDS ORDERED: ONDANSETRON HCL 4 MG/2 ML VIAL IVP PRN (15:00)
[2018-04-30] MEDS ORDERED: LORazepam 2 MG/ML VIAL IM PRN (15:00)
[2018-04-30] MEDS ORDERED: LR 1,000 ML IV SCH (15:00)
[2018-04-30 15:13] VITALS: BP_SYST 158
[2018-04-30] MEDS ORDERED: CARV6.2554 PO (15:24)
[2018-04-30] MEDS ORDERED: FAMO20TA8 PO (15:24)
[2018-04-30] MEDS ORDERED: LORA-259 PO (15:24)
[2018-04-30] MEDS ORDERED: BENA20TA75 PO (15:24)
[2018-04-30] MEDS ORDERED: HYDR50CA PO (15:24)
[2018-04-30] MEDS ORDERED: HYDR25TA4 PO (15:24)
[2018-04-30] MEDS ORDERED: MECL12.584 PO (15:24)
[2018-04-30] MEDS ORDERED: LORA2TAB95 PO (15:24)
[2018-04-30] MEDS ORDERED: PARO-63 PO (15:24)
[2018-04-30] MEDS ORDERED: PHEDM120 PO (15:25)
[2018-04-30 15:28] LABS: BASOPHILS # (AUTO) 0.1 K/uL (0.0-0.2); BASOPHILS % (AUTO) 0.9 % (0.0-2.0); EOSINOPHILS # (AUTO) 0.2 K/uL (0.0-0.4); EOSINOPHILS % (AUTO) 1.6 % (0.0-4.0); HEMATOCRIT 40.7 % (36-48); HEMOGLOBIN 12.7 g/dL (12.0-16.0); LYMPHOCYTES # (AUTO) 2.6 K/uL (1.0-5.5); MEAN CORPUSCULAR HEMOGLOBIN 26 pg (27-31); MEAN CORPUSCULAR HGB CONC 31 % (32-36); MEAN CORPUSCULAR VOLUME 82 fL (79.0-98.0); MONOCYTES # (AUTO) 0.9 K/uL (0.0-1.0); MONOCYTES % (AUTO) 7.8 % (1.7-9.3); NEUTROPHILS % (AUTO) 67.7 % (40.0-70.0); PLATELET COUNT (AUTO) 491 K/uL (130-430); RED BLOOD CELL COUNT(AUTO) 4.99 MIL/uL (4.2-6.2); RED CELL DISTRIBUTION WIDTH 12.5 % (9.0-15.0); WHITE BLOOD COUNT (AUTO) 11.8 K/uL (4.8-10.8)
[2018-04-30 15:30] VITALS: BP_SYST 155
[2018-04-30 15:44] LABS: CALCIUM 9.4 mg/dL (8.4-11.0); CREATININE 1.64 mg/dL (0.55-1.30); POTASSIUM 4.4 mmol/L (3.5-5.1)
[2018-04-30 15:48] LABS: ALBUMIN 3.6 g/dL (3.4-4.8); TOTAL BILIRUBIN 0.2 mg/dL (0.0-1.0)
[2018-04-30] MEDS: LORazepam 2 MG/ML VIAL IVP PRN (16:19)
[2018-04-30] MEDS: AMPICILLIN SODIUM/SULBACTAM NA 3 GM in NS 100 ML IV SCH (17:59)
[2018-04-30] MEDS: PAROXETINE HCL 10 MG TABLET PO SCH (18:00)
[2018-04-30] MEDS: NACL 0.9% 1,000 ML IV SCH (18:27)
[2018-04-30 20:11] VITALS: BP_SYST 130
[2018-04-30] MEDS: MECLIZINE HCL 25 MG TABLET (ANITVERT) PO SCH (21:11)
[2018-04-30] MEDS: LORazepam 1 MG TABLET PO SCH (21:11)
[2018-04-30] MEDS: FAMOTIDINE 20 MG TABLET PO SCH (21:11)
[2018-04-30] MEDS: CARVEDILOL 6.25 MG TABLET (COREG) PO SCH (21:12)
[2018-04-30] MEDS: BENAZEPRIL HCL 20 MG TABLET (LOTENSIN) PO SCH (21:13)
[2018-04-30 22:39] LABS: BILIRUBIN,URINE NEGATIVE (NEGATIVE); CLARITY/URINE CLEAR (CLEAR); COLOR,URINE YELLOW (YELLOW); GLUCOSE,URINE NEGATIVE (NEGATIVE); KETONES,URINE NEGATIVE (NEGATIVE); LEUKOCYTE ESTERASE ,URINE TRACE (NEGATIVE); NITRITE, URINE NEGATIVE (NEGATIVE); PROTEIN URINE NEGATIVE (NEGATIVE); UROBILINOGEN,URINE 0.2 (0.2-1.0)
[2018-04-30 22:47] LABS: BLOOD, URINE TRACE (NEGATIVE)
[2018-04-30 23:23] LABS: BACTERIA,URINE None Seen /HPF (None Seen)
[2018-05-01] MEDS: AMPICILLIN SODIUM/SULBACTAM NA 3 GM in NS 100 ML IV SCH ×4 (00:54→17:16)
[2018-05-01 00:57] VITALS: BP_SYST 97
[2018-05-01] MEDS: LORazepam 2 MG/ML VIAL IVP PRN ×4 (02:25→17:16)
[2018-05-01] MEDS: NACL 0.9% 1,000 ML IV SCH ×2 (06:06→14:15)
[2018-05-01 06:12] VITALS: BP_SYST 112
[2018-05-01 07:37] LABS: CALCIUM 8.4 mg/dL (8.4-11.0); CREATININE 1.2 mg/dL (0.55-1.30); POTASSIUM 3.7 mmol/L (3.5-5.1)
[2018-05-01 07:47] LABS: BASOPHILS # (AUTO) 0.1 K/uL (0.0-0.2); EOSINOPHILS # (AUTO) 0.2 K/uL (0.0-0.4); EOSINOPHILS % (AUTO) 2.5 % (0.0-4.0); HEMATOCRIT 31.4 % (36-48); HEMOGLOBIN 10.3 g/dL (12.0-16.0); LYMPHOCYTES # (AUTO) 2.4 K/uL (1.0-5.5); LYMPHOCYTES % (AUTO) 33.7 % (20.5-51.5); MEAN CORPUSCULAR HEMOGLOBIN 27 pg (27-31); MEAN CORPUSCULAR HGB CONC 33 % (32-36); MONOCYTES # (AUTO) 0.6 K/uL (0.0-1.0); MONOCYTES % (AUTO) 8.9 % (1.7-9.3); NEUTROPHILS # (AUTO) 3.7 K/uL (1.8-7.7); NEUTROPHILS % (AUTO) 53.9 % (40.0-70.0); PLATELET COUNT (AUTO) 300 K/uL (130-430); RED BLOOD CELL COUNT(AUTO) 3.88 MIL/uL (4.2-6.2); RED CELL DISTRIBUTION WIDTH 12.4 % (9.0-15.0)
[2018-05-01 07:48] LABS: MEAN CORPUSCULAR VOLUME 81 fL (79.0-98.0)
[2018-05-01 08:04] VITALS: BP_SYST 121
[2018-05-01 08:43] LABS: ERYTHROCYTE SEDIMENTATION RATE 22 MM/HR (0-20)
[2018-05-01] MEDS: CARVEDILOL 6.25 MG TABLET (COREG) PO SCH ×2 (08:48→20:59)
[2018-05-01] MEDS: PANTOPRAZOLE SODIUM 40 MG TAB PO SCH (08:48)
[2018-05-01] MEDS: FAMOTIDINE 20 MG TABLET PO SCH ×2 (08:48→21:12)
[2018-05-01] MEDS: MECLIZINE HCL 25 MG TABLET (ANITVERT) PO SCH ×3 (08:48→20:58)
[2018-05-01] MEDS ORDERED: HYDROCHLOROTHIAZIDE 25 MG TABLET (HCTZ) PO SCH (09:00)
[2018-05-01 10:26] LABS: TOTAL IRON BIND. CAPACITY 249 ug/dL (250-450)
[2018-05-01] MEDS: PROMETHAZINE-DM 6.25 MG-15 MG/5 ML UDC PO PRN ×2 (10:48→19:27)
[2018-05-01 12:08] VITALS: BP_SYST 144
[2018-05-01 16:02] VITALS: BP_SYST 126
[2018-05-01] MEDS: PAROXETINE HCL 10 MG TABLET PO SCH (18:07)
[2018-05-01 19:35] VITALS: BP_SYST 143
[2018-05-01] MEDS: DEXAMETHASONE SOD PHOSPHATE 4 MG/ML VIAL IVP SCH (20:57)
[2018-05-01] MEDS: BENAZEPRIL HCL 20 MG TABLET (LOTENSIN) PO SCH (20:58)
[2018-05-01] MEDS: LORazepam 1 MG TABLET PO SCH (20:58)
[2018-05-01] MEDS: busPIRone HCL 5 MG TABLET PO SCH (20:59)
[2018-05-01] MEDS ORDERED: QUEtiapine FUMARATE 25 MG TABLET PO SCH (21:00)
[2018-05-02] MEDS: NACL 0.9% 1,000 ML IV SCH ×3 (00:15→17:15)
[2018-05-02] MEDS: LORazepam 2 MG/ML VIAL IVP PRN ×4 (00:26→19:32)
[2018-05-02] MEDS: AMPICILLIN SODIUM/SULBACTAM NA 3 GM in NS 100 ML IV SCH ×4 (00:29→17:15)
[2018-05-02] MEDS ORDERED: LOPERAMIDE HCL 2 MG CAPSULE PO PRN (01:15)
[2018-05-02] MEDS ORDERED: LORazepam 2 MG/ML VIAL ONE (01:38)
[2018-05-02] MEDS ORDERED: LOPERAMIDE HCL 2 MG CAPSULE ONE (01:39)
[2018-05-02] MEDS ORDERED: LORazepam 2 MG/ML VIAL IVP SCH (02:00)
[2018-05-02] MEDS: PROMETHAZINE-DM 6.25 MG-15 MG/5 ML UDC PO PRN ×2 (04:52→17:14)
[2018-05-02 07:30] VITALS: BP_SYST 117
[2018-05-02] MEDS: PANTOPRAZOLE SODIUM 40 MG TAB PO SCH (08:26)
[2018-05-02] MEDS: DEXAMETHASONE SOD PHOSPHATE 4 MG/ML VIAL IVP SCH ×2 (08:26→21:24)
[2018-05-02] MEDS: MECLIZINE HCL 25 MG TABLET (ANITVERT) PO SCH ×3 (08:26→21:23)
[2018-05-02] MEDS: FAMOTIDINE 20 MG TABLET PO SCH ×2 (08:26→21:23)
[2018-05-02] MEDS: busPIRone HCL 5 MG TABLET PO SCH ×3 (08:26→21:22)
[2018-05-02] MEDS: CARVEDILOL 6.25 MG TABLET (COREG) PO SCH ×2 (08:27→21:24)
[2018-05-02 11:53] VITALS: BP_SYST 114
[2018-05-02 12:12] LABS: FOLATE (FOLIC ACID) 19.4 ng/mL (>3.0)
[2018-05-02 16:15] VITALS: BP_SYST 136
[2018-05-02] MEDS: PAROXETINE HCL 10 MG TABLET PO SCH (17:15)
[2018-05-02 19:40] VITALS: BP_SYST 132
[2018-05-02] MEDS: LORazepam 1 MG TABLET PO SCH (21:22)
[2018-05-02] MEDS: BENAZEPRIL HCL 20 MG TABLET (LOTENSIN) PO SCH (21:23)
[2018-05-03] MEDS: AMPICILLIN SODIUM/SULBACTAM NA 3 GM in NS 100 ML IV SCH ×4 (00:08→18:03)
[2018-05-03] MEDS: LORazepam 2 MG/ML VIAL IVP PRN ×4 (03:48→22:41)
[2018-05-03] MEDS: NACL 0.9% 1,000 ML IV SCH ×3 (04:01→15:06)
[2018-05-03] MEDS: PROMETHAZINE-DM 6.25 MG-15 MG/5 ML UDC PO PRN ×2 (04:02→09:25)
[2018-05-03 04:06] VITALS: BP_SYST 133
[2018-05-03 07:10] LABS: BASOPHILS % (AUTO) 0.2 % (0.0-2.0); HEMOGLOBIN 10.2 g/dL (12.0-16.0); LYMPHOCYTES # (AUTO) 1.4 K/uL (1.0-5.5); LYMPHOCYTES % (AUTO) 19.3 % (20.5-51.5); MEAN CORPUSCULAR HEMOGLOBIN 27 pg (27-31); MEAN CORPUSCULAR HGB CONC 33 % (32-36); MEAN CORPUSCULAR VOLUME 81 fL (79.0-98.0); MONOCYTES # (AUTO) 0.3 K/uL (0.0-1.0); MONOCYTES % (AUTO) 4.2 % (1.7-9.3); NEUTROPHILS # (AUTO) 5.7 K/uL (1.8-7.7); NEUTROPHILS % (AUTO) 76.3 % (40.0-70.0); PLATELET COUNT (AUTO) 315 K/uL (130-430); RED BLOOD CELL COUNT(AUTO) 3.85 MIL/uL (4.2-6.2); RED CELL DISTRIBUTION WIDTH 12.6 % (9.0-15.0); WHITE BLOOD COUNT (AUTO) 7.4 K/uL (4.8-10.8)
[2018-05-03 07:25] VITALS: BP_SYST 132
[2018-05-03 07:40] LABS: ALBUMIN 2.8 g/dL (3.4-4.8); CALCIUM 8.3 mg/dL (8.4-11.0); CREATININE 0.96 mg/dL (0.55-1.30); POTASSIUM 4.4 mmol/L (3.5-5.1); TOTAL BILIRUBIN 0.2 mg/dL (0.0-1.0)
[2018-05-03] MEDS: DEXAMETHASONE SOD PHOSPHATE 4 MG/ML VIAL IVP SCH ×2 (09:26→20:59)
[2018-05-03] MEDS: FAMOTIDINE 20 MG TABLET PO SCH ×2 (09:26→20:58)
[2018-05-03] MEDS: MECLIZINE HCL 25 MG TABLET (ANITVERT) PO SCH ×3 (09:26→20:55)
[2018-05-03] MEDS: PANTOPRAZOLE SODIUM 40 MG TAB PO SCH (09:27)
[2018-05-03] MEDS: busPIRone HCL 5 MG TABLET PO SCH ×3 (09:28→20:58)
[2018-05-03] MEDS: CARVEDILOL 6.25 MG TABLET (COREG) PO SCH ×2 (09:28→20:56)
[2018-05-03] MEDS: LORazepam 1 MG TABLET PO PRN (12:02)
[2018-05-03 12:19] VITALS: BP_SYST 122
[2018-05-03 16:02] VITALS: BP_SYST 147
[2018-05-03] MEDS: PAROXETINE HCL 10 MG TABLET PO SCH (18:02)
[2018-05-03] MEDS ORDERED: PROMETHAZINE HCL 25 MG/ML AMP ONE (18:26)
[2018-05-03 20:00] VITALS: BP_SYST 155
[2018-05-03] MEDS: LORazepam 1 MG TABLET PO SCH (20:55)
[2018-05-03] MEDS: BENAZEPRIL HCL 20 MG TABLET (LOTENSIN) PO SCH (20:58)
[2018-05-03] MEDS ORDERED: PROMETHAZINE HCL 6.25 MG/5 ML UDC PO PRN (21:15)
[2018-05-03] MEDS ORDERED: PROMETHAZINE HCL 6.25 MG/5 ML UDC ONE ×2 (21:20→21:37)
[2018-05-04 00:02] VITALS: BP_SYST 140
[2018-05-04 00:39] VITALS: BP_SYST 157
[2018-05-04] MEDS: NACL 0.9% 1,000 ML IV SCH ×3 (01:06→22:43)
[2018-05-04] MEDS: LORazepam 2 MG/ML VIAL IVP PRN ×3 (02:46→18:48)
[2018-05-04] MEDS: AMPICILLIN SODIUM/SULBACTAM NA 3 GM in NS 100 ML IV SCH ×6 (05:00→23:53)
[2018-05-04 07:32] LABS: BASOPHILS % (AUTO) 0.2 % (0.0-2.0); EOSINOPHILS % (AUTO) 0.1 % (0.0-4.0); HEMATOCRIT 30.7 % (36-48); HEMOGLOBIN 10.2 g/dL (12.0-16.0); LYMPHOCYTES # (AUTO) 1.5 K/uL (1.0-5.5); MEAN CORPUSCULAR HEMOGLOBIN 26 pg (27-31); MEAN CORPUSCULAR HGB CONC 33 % (32-36); MEAN CORPUSCULAR VOLUME 79 fL (79.0-98.0); MONOCYTES # (AUTO) 0.4 K/uL (0.0-1.0); MONOCYTES % (AUTO) 5.6 % (1.7-9.3); NEUTROPHILS % (AUTO) 72.1 % (40.0-70.0); PLATELET COUNT (AUTO) 323 K/uL (130-430); RED BLOOD CELL COUNT(AUTO) 3.88 MIL/uL (4.2-6.2); RED CELL DISTRIBUTION WIDTH 12.6 % (9.0-15.0); WHITE BLOOD COUNT (AUTO) 6.9 K/uL (4.8-10.8)
[2018-05-04 07:45] LABS: ANION GAP 10 (5-15); C-REACTIVE PROTEIN QUANT < 0.2 mg/dL (0-0.5); CALCIUM 8.2 mg/dL (8.4-11.0); CHLORIDE 108 mmol/L (98-107); CREATININE 1.02 mg/dL (0.55-1.30); GLUCOSE 152 mg/dL (70-99); POTASSIUM 4.1 mmol/L (3.5-5.1); SODIUM SERUM 142 mmol/L (136-145); UREA NITROGEN, BLOOD 10 mg/dL (8-21)
[2018-05-04 07:54] LABS: GFR AFRICAN AMERICAN 71 mL/min (>90)
[2018-05-04] MEDS: FAMOTIDINE 20 MG TABLET PO SCH ×2 (09:05→21:02)
[2018-05-04] MEDS: MECLIZINE HCL 25 MG TABLET (ANITVERT) PO SCH ×3 (09:05→20:59)
[2018-05-04] MEDS: busPIRone HCL 5 MG TABLET PO SCH ×3 (09:05→21:00)
[2018-05-04] MEDS: DEXAMETHASONE SOD PHOSPHATE 4 MG/ML VIAL IVP SCH ×2 (09:06→21:07)
[2018-05-04] MEDS: PANTOPRAZOLE SODIUM 40 MG TAB PO SCH (09:06)
[2018-05-04] MEDS: CARVEDILOL 6.25 MG TABLET (COREG) PO SCH ×2 (09:06→21:02)
[2018-05-04 09:11] VITALS: BP_SYST 161
[2018-05-04] MEDS: PROMETHAZINE-DM 6.25 MG-15 MG/5 ML UDC PO PRN (11:55)
[2018-05-04 12:35] VITALS: BP_SYST 158
[2018-05-04 17:15] VITALS: BP_SYST 150
[2018-05-04] MEDS ORDERED: cloNIDine HCL 0.1 MG TABLET PO PRN (17:45)
[2018-05-04] MEDS: PAROXETINE HCL 10 MG TABLET PO SCH (18:42)
[2018-05-04 20:40] VITALS: BP_SYST 155
[2018-05-04] MEDS: LORazepam 1 MG TABLET PO SCH (21:00)
[2018-05-04] MEDS: cloNIDine HCL 0.1 MG TABLET PO SCH (21:03)
[2018-05-05] VITALS (8 sets, daily range): BP systolic 138–196
[2018-05-05] MEDS: ACETAMINOPHEN 325 MG TABLET PO PRN ×2 (00:25→16:11)
[2018-05-05] MEDS: PROMETHAZINE-DM 6.25 MG-15 MG/5 ML UDC PO PRN ×2 (01:18→13:42)
[2018-05-05] MEDS: LORazepam 2 MG/ML VIAL IVP PRN ×5 (04:30→18:11)
[2018-05-05] MEDS: AMPICILLIN SODIUM/SULBACTAM NA 3 GM in NS 100 ML IV SCH ×3 (05:35→18:12)
[2018-05-05] MEDS: CARVEDILOL 6.25 MG TABLET (COREG) PO SCH ×2 (08:11→21:19)
[2018-05-05] MEDS: cloNIDine HCL 0.1 MG TABLET PO SCH (08:12)
[2018-05-05] MEDS: FAMOTIDINE 20 MG TABLET PO SCH ×2 (08:13→21:20)
[2018-05-05] MEDS: PANTOPRAZOLE SODIUM 40 MG TAB PO SCH (08:13)
[2018-05-05] MEDS: busPIRone HCL 5 MG TABLET PO SCH ×3 (08:25→21:20)
[2018-05-05] MEDS: MECLIZINE HCL 25 MG TABLET (ANITVERT) PO SCH ×3 (08:27→21:17)
[2018-05-05] MEDS: DEXAMETHASONE SOD PHOSPHATE 4 MG/ML VIAL IVP SCH ×2 (08:28→21:22)
[2018-05-05] MEDS: NACL 0.9% 1,000 ML IV SCH (08:38)
[2018-05-05] MEDS ORDERED: cloNIDine HCL 0.1 MG TABLET PO PRN (09:15)
[2018-05-05] MEDS ORDERED: IOHEXOL 100 ML IV ONE (14:58)
[2018-05-05] MEDS ORDERED: cloNIDine HCL 0.2 MG TABLET PO PRN (16:15)
[2018-05-05] MEDS ORDERED: hydrALAZINE HCL 20 MG/ML VIAL IVP PRN (18:00)
[2018-05-05] MEDS: PAROXETINE HCL 10 MG TABLET PO SCH (18:18)
[2018-05-05] MEDS: LORazepam 1 MG TABLET PO SCH (21:18)
[2018-05-06] MEDS: AMPICILLIN SODIUM/SULBACTAM NA 3 GM in NS 100 ML IV SCH ×5 (00:57→23:36)
[2018-05-06] MEDS: LORazepam 2 MG/ML VIAL IVP PRN ×2 (05:48→11:55)
[2018-05-06 08:00] VITALS: BP_SYST 170
[2018-05-06] MEDS: busPIRone HCL 5 MG TABLET PO SCH ×3 (08:21→21:21)
[2018-05-06] MEDS: MECLIZINE HCL 25 MG TABLET (ANITVERT) PO SCH ×3 (08:21→21:22)
[2018-05-06] MEDS: PANTOPRAZOLE SODIUM 40 MG TAB PO SCH (08:21)
[2018-05-06] MEDS: FAMOTIDINE 20 MG TABLET PO SCH ×2 (08:21→21:21)
[2018-05-06] MEDS: CARVEDILOL 6.25 MG TABLET (COREG) PO SCH ×2 (08:22→21:23)
[2018-05-06] MEDS: DEXAMETHASONE SOD PHOSPHATE 4 MG/ML VIAL IVP SCH (08:23)
[2018-05-06] MEDS: PROMETHAZINE-DM 6.25 MG-15 MG/5 ML UDC PO PRN (08:59)
[2018-05-06 11:40] LABS: BASOPHILS % (AUTO) 0.5 % (0.0-2.0); HEMATOCRIT 31.8 % (36-48); HEMOGLOBIN 10.1 g/dL (12.0-16.0); LYMPHOCYTES # (AUTO) 1.5 K/uL (1.0-5.5); LYMPHOCYTES % (AUTO) 18.2 % (20.5-51.5); MEAN CORPUSCULAR HEMOGLOBIN 26 pg (27-31); MEAN CORPUSCULAR HGB CONC 32 % (32-36); MEAN CORPUSCULAR VOLUME 82 fL (79.0-98.0); MONOCYTES # (AUTO) 0.6 K/uL (0.0-1.0); MONOCYTES % (AUTO) 7.1 % (1.7-9.3); NEUTROPHILS # (AUTO) 6.3 K/uL (1.8-7.7); NEUTROPHILS % (AUTO) 74.2 % (40.0-70.0); PLATELET COUNT (AUTO) 295 K/uL (130-430); RED BLOOD CELL COUNT(AUTO) 3.88 MIL/uL (4.2-6.2); RED CELL DISTRIBUTION WIDTH 12.9 % (9.0-15.0); WHITE BLOOD COUNT (AUTO) 8.4 K/uL (4.8-10.8)
[2018-05-06 12:00] LABS: POTASSIUM 3.7 mmol/L (3.5-5.1)
[2018-05-06 12:32] LABS: CALCIUM 8.3 mg/dL (8.4-11.0); CREATININE 1.11 mg/dL (0.55-1.30)
[2018-05-06 12:47] VITALS: BP_SYST 143
[2018-05-06] MEDS: LORazepam 1 MG TABLET PO PRN ×2 (13:57→23:38)
[2018-05-06] MEDS: hydrALAZINE HCL 25 MG TABLET PO SCH ×2 (15:06→21:24)
[2018-05-06 15:26] VITALS: BP_SYST 154
[2018-05-06] MEDS: PAROXETINE HCL 10 MG TABLET PO SCH (18:30)
[2018-05-06 21:19] VITALS: BP_SYST 115
[2018-05-06] MEDS: LORazepam 1 MG TABLET PO SCH (21:22)
[2018-05-06 23:58] VITALS: BP_SYST 120
[2018-05-07] MEDS: PROMETHAZINE-DM 6.25 MG-15 MG/5 ML UDC PO PRN ×4 (00:32→18:20)
[2018-05-07] MEDS: LORazepam 2 MG/ML VIAL IVP PRN ×2 (04:21→16:08)
[2018-05-07] MEDS: AMPICILLIN SODIUM/SULBACTAM NA 3 GM in NS 100 ML IV SCH (05:55)
[2018-05-07] MEDS: hydrALAZINE HCL 25 MG TABLET PO SCH ×3 (05:59→22:00)
[2018-05-07 08:00] VITALS: BP_SYST 124
[2018-05-07] MEDS ORDERED: LORazepam 2 MG/ML VIAL IVP ONE (08:30)
[2018-05-07] MEDS: busPIRone HCL 5 MG TABLET PO SCH ×3 (09:26→20:47)
[2018-05-07] MEDS: MECLIZINE HCL 25 MG TABLET (ANITVERT) PO SCH ×3 (09:27→20:46)
[2018-05-07] MEDS: PANTOPRAZOLE SODIUM 40 MG TAB PO SCH (09:27)
[2018-05-07] MEDS: FAMOTIDINE 20 MG TABLET PO SCH ×2 (09:27→20:47)
[2018-05-07] MEDS: CARVEDILOL 6.25 MG TABLET (COREG) PO SCH ×2 (09:27→20:49)
[2018-05-07 13:31] VITALS: BP_SYST 131
[2018-05-07] MEDS ORDERED: GADOPENTETATE DIMEGLUMINE 15 ML VIAL IV ONE (13:44)
[2018-05-07] MEDS ORDERED: GADOPENTETATE DIMEGLUMINE 5 ML VIAL IV ONE (13:45)
[2018-05-07 16:56] VITALS: BP_SYST 138
[2018-05-07] MEDS: ACETAMINOPHEN 325 MG TABLET PO PRN (18:15)
[2018-05-07] MEDS: PAROXETINE HCL 10 MG TABLET PO SCH (18:16)
[2018-05-07 20:38] VITALS: BP_SYST 95
[2018-05-07] MEDS: LORazepam 1 MG TABLET PO SCH (20:47)
[2018-05-07 22:22] VITALS: BP_SYST 102
[2018-05-08] VITALS: BP_SYST 108
[2018-05-08] MEDS: ACETAMINOPHEN 325 MG TABLET PO PRN ×3 (00:02→13:38)
[2018-05-08] MEDS: LORazepam 2 MG/ML VIAL IVP PRN ×4 (00:03→13:51)
[2018-05-08] MEDS: PROMETHAZINE-DM 6.25 MG-15 MG/5 ML UDC PO PRN ×4 (06:24→21:16)
[2018-05-08] MEDS: hydrALAZINE HCL 25 MG TABLET PO SCH ×3 (06:24→21:09)
[2018-05-08 08:00] VITALS: BP_SYST 143
[2018-05-08] MEDS: MECLIZINE HCL 25 MG TABLET (ANITVERT) PO SCH ×3 (08:29→21:04)
[2018-05-08] MEDS: busPIRone HCL 5 MG TABLET PO SCH ×3 (08:29→21:05)
[2018-05-08] MEDS: PANTOPRAZOLE SODIUM 40 MG TAB PO SCH (08:29)
[2018-05-08] MEDS: FAMOTIDINE 20 MG TABLET PO SCH ×2 (08:30→21:07)
[2018-05-08] MEDS: CARVEDILOL 6.25 MG TABLET (COREG) PO SCH ×2 (08:30→21:06)
[2018-05-08 12:27] VITALS: BP_SYST 147
[2018-05-08 16:06] VITALS: BP_SYST 135
[2018-05-08] MEDS: PAROXETINE HCL 10 MG TABLET PO SCH (18:33)
[2018-05-08 19:00] VITALS: BP_SYST 130
[2018-05-08 20:00] VITALS: BP_SYST 130
[2018-05-08] MEDS: LORazepam 1 MG TABLET PO SCH (21:05)
[2018-05-09] MEDS: LORazepam 2 MG/ML VIAL IVP PRN ×5 (00:15→15:35)
[2018-05-09 04:32] VITALS: BP_SYST 130
[2018-05-09 06:00] VITALS: BP_SYST 134
[2018-05-09] MEDS: hydrALAZINE HCL 25 MG TABLET PO SCH ×2 (06:18→15:29)
[2018-05-09] MEDS: PROMETHAZINE-DM 6.25 MG-15 MG/5 ML UDC PO PRN ×2 (06:20→12:34)
[2018-05-09 06:45] LABS: BASOPHILS # (AUTO) 0.1 K/uL (0.0-0.2); BASOPHILS % (AUTO) 1.8 % (0.0-2.0); EOSINOPHILS # (AUTO) 0.3 K/uL (0.0-0.4); EOSINOPHILS % (AUTO) 3.8 % (0.0-4.0); HEMATOCRIT 31.9 % (36-48); HEMOGLOBIN 10.1 g/dL (12.0-16.0); LYMPHOCYTES # (AUTO) 3.2 K/uL (1.0-5.5); MEAN CORPUSCULAR HEMOGLOBIN 26 pg (27-31); MEAN CORPUSCULAR HGB CONC 32 % (32-36); MEAN CORPUSCULAR VOLUME 83 fL (79.0-98.0); MONOCYTES # (AUTO) 0.7 K/uL (0.0-1.0); MONOCYTES % (AUTO) 8.8 % (1.7-9.3); NEUTROPHILS # (AUTO) 3.7 K/uL (1.8-7.7); NEUTROPHILS % (AUTO) 45.6 % (40.0-70.0); PLATELET COUNT (AUTO) 295 K/uL (130-430); RED BLOOD CELL COUNT(AUTO) 3.87 MIL/uL (4.2-6.2); RED CELL DISTRIBUTION WIDTH 13.6 % (9.0-15.0)
[2018-05-09 07:31] LABS: C-REACTIVE PROTEIN QUANT 1.1 mg/dL (0-0.5); CALCIUM 8.2 mg/dL (8.4-11.0); CREATININE 1.07 mg/dL (0.55-1.30); POTASSIUM 3.6 mmol/L (3.5-5.1)
[2018-05-09 08:00] VITALS: BP_SYST 118
[2018-05-09] MEDS: MECLIZINE HCL 25 MG TABLET (ANITVERT) PO SCH ×2 (08:53→15:29)
[2018-05-09] MEDS: FAMOTIDINE 20 MG TABLET PO SCH (08:55)
[2018-05-09] MEDS: busPIRone HCL 5 MG TABLET PO SCH ×2 (08:55→15:27)
[2018-05-09] MEDS: PANTOPRAZOLE SODIUM 40 MG TAB PO SCH (08:55)
[2018-05-09] MEDS: CARVEDILOL 6.25 MG TABLET (COREG) PO SCH (08:56)
[2018-05-09 16:00] VITALS: BP_SYST 126; BP_SYST 139
[2018-05-09] MEDS: ACETAMINOPHEN 325 MG TABLET PO PRN (16:44)
[2018-05-09] MEDS: PAROXETINE HCL 10 MG TABLET PO SCH (17:53)
[2018-05-09 19:40] VITALS: BP_SYST 136
== END 2018-05-09 20:00 | disposition home or self-care (01) | DRG 152 ==
LOC: SMU 14:39 → STU 05-05 21:10
PROVIDERS: ADMIT Internal Medicine; ATTEND Internal Medicine
DX: J02.9 Acute pharyngitis, unspecified (principal); N17.0 Acute kidney failure with tubular necrosis; E87.1 Hypo-osmolality and hyponatremia; K29.00 Acute gastritis without bleeding; I10 Essential (primary) hypertension; E66.9 Obesity, unspecified; F41.9 Anxiety disorder, unspecified; E86.0 Dehydration; R13.10 Dysphagia, unspecified; F32.9 Major depressive disorder, single episode, unspecified; Z68.35 Body mass index [BMI] 35.0-35.9, adult; Z79.899 Other long term (current) drug therapy; Z88.1 Allergy status to other antibiotic agents; Z91.018 Allergy to other foods; Z91.048 Other nonmedicinal substance allergy status
CPT/HCPCS: 36415; 70360-TC; 70492; 70543; 70553; 80048; 80053; 81000-TC; 82607; 82746; 83540-TC; 83550-TC; 83605; 83735-TC; 85025; 85651-TC; 86140; 86403; 87040-TC; 87045-TC; 87046; 87070-TC; 87081; 89055; A6209; A9579; G0378; J0295; J0360; J1100; J1200; J2060; J2550; J7030; J7050; J7120; J8597; Q0169; Q9967

== ENCOUNTER 2018-06-05 09:27 | Outpatient (CLI) | payer OTHER ==
[~2018-06-05 09:27] MED LIST changes: +CARV6.2554 PO; +FAMO20TA8 PO; +HYDR50CA PO; +LORA-259 PO; +LORA2TAB95 PO; +MECL12.584 PO; +PARO-63 PO; +PHEDM120 PO
== END 2018-06-05 19:33 | disposition home or self-care (01) ==
LOC: SUS 09:27
PROVIDERS: ATTEND Surgery
DX: N64.4 Mastodynia (principal); N63.10 Unspecified lump in the right breast, unspecified quadrant
CPT/HCPCS: 76642

== ENCOUNTER 2018-09-07 10:38 | Outpatient (CLI) | payer OTHER | END 2018-09-07 21:08 | disposition home or self-care (01) | LOC: SMA 10:38 | PROVIDERS: ATTEND Internal Medicine | DX: Z12.31 Encounter for screening mammogram for malignant neoplasm of breast (principal) | CPT/HCPCS: 77067 ==

== ENCOUNTER 2018-10-01 12:29 | Inpatient (IN) | payer OTHER ==
[~2018-10-01] VITALS: Ht 166.4 cm; Wt 100.2 kg
[2018-10-01 12:34] VITALS: BP_SYST 133
[2018-10-01 12:55] LABS: BILIRUBIN,URINE NEGATIVE (NEGATIVE); BLOOD, URINE NEGATIVE (NEGATIVE); CLARITY/URINE CLEAR (CLEAR); COLOR,URINE YELLOW (YELLOW); GLUCOSE,URINE NEGATIVE (NEGATIVE); KETONES,URINE NEGATIVE (NEGATIVE); LEUKOCYTE ESTERASE ,URINE NEGATIVE (NEGATIVE); NITRITE, URINE NEGATIVE (NEGATIVE); PH,URINE 5.5 (5.0-8.0); PROTEIN URINE NEGATIVE (NEGATIVE); UROBILINOGEN,URINE 0.2 (0.2-1.0)
[2018-10-01] MEDS ORDERED: LORazepam 2 MG/ML VIAL (FOR ER USE) IM ONE (13:00)
[2018-10-01 13:15] LABS: BASOPHILS % (AUTO) 0.7 % (0.0-2.0); EOSINOPHILS # (AUTO) 0.2 K/uL (0.0-0.4); EOSINOPHILS % (AUTO) 3.5 % (0.0-4.0); HEMATOCRIT 35.1 % (36-48); HEMOGLOBIN 11.2 g/dL (12.0-16.0); LYMPHOCYTES # (AUTO) 1.7 K/uL (1.0-5.5); LYMPHOCYTES % (AUTO) 25.1 % (20.5-51.5); MEAN CORPUSCULAR HEMOGLOBIN 25 pg (27-31); MEAN CORPUSCULAR HGB CONC 32 % (32-36); MEAN CORPUSCULAR VOLUME 78 fL (79.0-98.0); MONOCYTES # (AUTO) 0.5 K/uL (0.0-1.0); MONOCYTES % (AUTO) 7.4 % (1.7-9.3); NEUTROPHILS # (AUTO) 4.4 K/uL (1.8-7.7); NEUTROPHILS % (AUTO) 63.3 % (40.0-70.0); PLATELET COUNT (AUTO) 334 K/uL (130-430); RED CELL DISTRIBUTION WIDTH 13.4 % (9.0-15.0); WHITE BLOOD COUNT (AUTO) 6.9 K/uL (4.8-10.8)
[2018-10-01 13:38] LABS: ANION GAP 9 (5-15); CHLORIDE 102 mmol/L (98-107); CREATININE 1.52 mg/dL (0.55-1.30); GLUCOSE 164 mg/dL (70-99); POTASSIUM 3.7 mmol/L (3.5-5.1); SODIUM SERUM 139 mmol/L (136-145); UREA NITROGEN, BLOOD 39 mg/dL (8-21)
[2018-10-01 13:46] LABS: ALANINE AMINOTRANSFERASE 33 U/L (12-78); ALBUMIN 3.2 g/dL (3.4-4.8); ASPARTATE AMINOTRANSFERASE 20 U/L (10-37); TOTAL BILIRUBIN 0.1 mg/dL (0.0-1.0)
[2018-10-01 13:48] LABS: GFR AFRICAN AMERICAN 45 mL/min (>90)
[2018-10-01 13:51] LABS: CALCIUM 8.9 mg/dL (8.4-11.0)
[2018-10-01 13:53] LABS: PROTHROMBIN TIME 9.9 SECS (9.5-12.5)
[2018-10-01] MEDS ORDERED: fentaNYL CITRATE/PF 100 MCG/2 ML AMP IM ONE (14:45)
[2018-10-01] MEDS ORDERED: fentaNYL CITRATE/PF 100 MCG/2 ML AMP IVP ONE (15:00)
[2018-10-01] MEDS ORDERED: BUSP10TA3 PO (16:07)
[2018-10-01] MEDS ORDERED: ASPI-1155 PO (16:07)
[2018-10-01] MEDS ORDERED: HYDR25TA4 PO (16:07)
[2018-10-01] MEDS ORDERED: TOP25 PO (16:07)
[2018-10-01] MEDS ORDERED: BENA20TA75 PO (16:07)
[2018-10-01 16:54] VITALS: BP_SYST 127
[2018-10-01] MEDS: MORPHINE 4 MG/ML INJ. SYRINGE IVP PRN ×2 (17:56→20:56)
[2018-10-01] MEDS ORDERED: ONDANSETRON HCL 4 MG/2 ML VIAL IVP PRN (18:00)
[2018-10-01] MEDS ORDERED: PROMETHAZINE-DM 6.25 MG-15 MG/5 ML UDC PO PRN (18:00)
[2018-10-01] MEDS ORDERED: PARoxetine HCL 20 MG TABLET PO SCH (18:00)
[2018-10-01 20:00] VITALS: BP_SYST 115
[2018-10-01] MEDS: LORazepam 1 MG TABLET PO SCH (20:53)
[2018-10-01] MEDS: CARVEDILOL 6.25 MG TABLET (COREG) PO SCH (20:54)
[2018-10-01] MEDS: TOPIRAMATE 25 MG TABLET(TOPAMAX) PO SCH (20:54)
[2018-10-01] MEDS: busPIRone HCL 5 MG TABLET PO SCH (20:54)
[2018-10-01] MEDS: MECLIZINE HCL 25 MG TABLET (ANITVERT) PO SCH (21:02)
[2018-10-02] MEDS: MORPHINE 4 MG/ML INJ. SYRINGE IVP PRN ×4 (00:12→19:55)
[2018-10-02 00:45] VITALS: BP_SYST 99
[2018-10-02 07:58] VITALS: BP_SYST 117
[2018-10-02] MEDS: busPIRone HCL 5 MG TABLET PO SCH ×3 (08:39→22:34)
[2018-10-02] MEDS: BENAZEPRIL HCL 20 MG TABLET (LOTENSIN) PO SCH (08:40)
[2018-10-02] MEDS: CARVEDILOL 6.25 MG TABLET (COREG) PO SCH ×2 (08:40→22:35)
[2018-10-02] MEDS: PANTOPRAZOLE SODIUM 40 MG TAB PO SCH (08:40)
[2018-10-02] MEDS: TOPIRAMATE 25 MG TABLET(TOPAMAX) PO SCH ×2 (08:41→22:34)
[2018-10-02] MEDS: HYDROCHLOROTHIAZIDE 25 MG TABLET (HCTZ) PO SCH (08:41)
[2018-10-02] MEDS: MECLIZINE HCL 25 MG TABLET (ANITVERT) PO SCH ×3 (08:44→22:35)
[2018-10-02 12:57] VITALS: BP_SYST 120
[2018-10-02 16:00] VITALS: BP_SYST 98
[2018-10-02] MEDS: LORazepam 1 MG TABLET PO SCH ×2 (17:33→22:34)
[2018-10-02 19:52] VITALS: BP_SYST 109
[2018-10-03] MEDS ORDERED: NS 500 ML IV PRN ×2 (01:00)
[2018-10-03 08:00] VITALS: BP_SYST 94
[2018-10-03] MEDS: CARVEDILOL 6.25 MG TABLET (COREG) PO SCH (08:22)
[2018-10-03] MEDS: HYDROCHLOROTHIAZIDE 25 MG TABLET (HCTZ) PO SCH (08:23)
[2018-10-03] MEDS: BENAZEPRIL HCL 20 MG TABLET (LOTENSIN) PO SCH (08:23)
[2018-10-03] MEDS: MECLIZINE HCL 25 MG TABLET (ANITVERT) PO SCH (08:31)
[2018-10-03] MEDS: PANTOPRAZOLE SODIUM 40 MG TAB PO SCH (08:31)
[2018-10-03] MEDS: PARoxetine HCL 20 MG TABLET PO SCH (08:31)
[2018-10-03] MEDS: TOPIRAMATE 25 MG TABLET(TOPAMAX) PO SCH ×2 (08:31→21:34)
[2018-10-03] MEDS: busPIRone HCL 5 MG TABLET PO SCH (08:31)
[2018-10-03] MEDS: LORazepam 1 MG TABLET PO SCH ×2 (08:32→16:56)
[2018-10-03 11:05] LABS: BASOPHILS # (AUTO) 0.1 K/uL (0.0-0.2); BASOPHILS % (AUTO) 0.6 % (0.0-2.0); EOSINOPHILS # (AUTO) 0.2 K/uL (0.0-0.4); EOSINOPHILS % (AUTO) 2.5 % (0.0-4.0); HEMATOCRIT 31.7 % (36-48); HEMOGLOBIN 10.1 g/dL (12.0-16.0); LYMPHOCYTES # (AUTO) 2.5 K/uL (1.0-5.5); LYMPHOCYTES % (AUTO) 29.8 % (20.5-51.5); MEAN CORPUSCULAR HEMOGLOBIN 25 pg (27-31); MEAN CORPUSCULAR HGB CONC 32 % (32-36); MEAN CORPUSCULAR VOLUME 79 fL (79.0-98.0); MONOCYTES # (AUTO) 0.8 K/uL (0.0-1.0); MONOCYTES % (AUTO) 9.7 % (1.7-9.3); NEUTROPHILS # (AUTO) 4.9 K/uL (1.8-7.7); NEUTROPHILS % (AUTO) 57.4 % (40.0-70.0); PLATELET COUNT (AUTO) 301 K/uL (130-430); RED BLOOD CELL COUNT(AUTO) 4.02 MIL/uL (4.2-6.2); RED CELL DISTRIBUTION WIDTH 13.4 % (9.0-15.0); WHITE BLOOD COUNT (AUTO) 8.5 K/uL (4.8-10.8)
[2018-10-03] MEDS ORDERED: DOCUSATE SODIUM 250 MG CAPSULE PO ONE (11:15)
[2018-10-03] MEDS ORDERED: BISACODYL 5 MG TABLET.DR (DULCOLAX) PO ONE (11:15)
[2018-10-03] MEDS ORDERED: BISACODYL 5 MG TABLET.DR (DULCOLAX) PO PRN (11:15)
[2018-10-03 11:17] LABS: CALCIUM 8.6 mg/dL (8.4-11.0); CREATININE 2.76 mg/dL (0.55-1.30); POTASSIUM 3.7 mmol/L (3.5-5.1)
[2018-10-03 11:22] LABS: ALBUMIN 2.8 g/dL (3.4-4.8); TOTAL BILIRUBIN 0.4 mg/dL (0.0-1.0)
[2018-10-03] MEDS: PROPRANOLOL HCL (INDERAL LA 60MG) PO SCH (11:24)
[2018-10-03] MEDS: HYDROcodone/ACETAMIN 5-325 MG TAB (NORCO/ VICODIN) PO PRN ×2 (11:25→17:38)
[2018-10-03 12:00] VITALS: BP_SYST 97
[2018-10-03] MEDS: NACL 0.9% 1,000 ML IV SCH ×2 (12:27→18:43)
[2018-10-03 16:04] VITALS: BP_SYST 102
[2018-10-03 21:31] VITALS: BP_SYST 100
[2018-10-03] MEDS: DOCUSATE SODIUM 250 MG CAPSULE PO SCH (21:34)
[2018-10-03] MEDS: LORazepam 1 MG TABLET PO PRN (22:17)
[2018-10-03] MEDS: HYDROcodone/ACETAMIN 10-325 MG TAB PO PRN (22:23)
[2018-10-04 00:26] VITALS: BP_SYST 95
[2018-10-04] MEDS: NACL 0.9% 1,000 ML IV SCH ×3 (00:50→20:03)
[2018-10-04 06:35] LABS: BASOPHILS % (AUTO) 0.5 % (0.0-2.0); EOSINOPHILS # (AUTO) 0.3 K/uL (0.0-0.4); EOSINOPHILS % (AUTO) 3.1 % (0.0-4.0); HEMATOCRIT 30.4 % (36-48); HEMOGLOBIN 9.6 g/dL (12.0-16.0); LYMPHOCYTES # (AUTO) 2.1 K/uL (1.0-5.5); LYMPHOCYTES % (AUTO) 25.5 % (20.5-51.5); MEAN CORPUSCULAR HEMOGLOBIN 25 pg (27-31); MEAN CORPUSCULAR HGB CONC 32 % (32-36); MEAN CORPUSCULAR VOLUME 79 fL (79.0-98.0); MONOCYTES # (AUTO) 0.7 K/uL (0.0-1.0); NEUTROPHILS # (AUTO) 5.3 K/uL (1.8-7.7); NEUTROPHILS % (AUTO) 62.9 % (40.0-70.0); PLATELET COUNT (AUTO) 265 K/uL (130-430); RED BLOOD CELL COUNT(AUTO) 3.85 MIL/uL (4.2-6.2); RED CELL DISTRIBUTION WIDTH 13.2 % (9.0-15.0); WHITE BLOOD COUNT (AUTO) 8.4 K/uL (4.8-10.8)
[2018-10-04 07:32] LABS: POTASSIUM 3.9 mmol/L (3.5-5.1)
[2018-10-04 07:33] LABS: ALBUMIN 2.7 g/dL (3.4-4.8); CALCIUM 8.2 mg/dL (8.4-11.0); CREATININE 2.09 mg/dL (0.55-1.30); TOTAL BILIRUBIN 0.4 mg/dL (0.0-1.0)
[2018-10-04] MEDS: PANTOPRAZOLE SODIUM 40 MG TAB PO SCH (08:44)
[2018-10-04] MEDS: DOCUSATE SODIUM 250 MG CAPSULE PO SCH ×2 (08:44→20:03)
[2018-10-04] MEDS: PROPRANOLOL HCL (INDERAL LA 60MG) PO SCH (08:45)
[2018-10-04] MEDS: PARoxetine HCL 20 MG TABLET PO SCH (08:45)
[2018-10-04] MEDS: TOPIRAMATE 25 MG TABLET(TOPAMAX) PO SCH ×2 (08:45→20:03)
[2018-10-04 12:46] VITALS: BP_SYST 117
[2018-10-04] MEDS: HYDROcodone/ACETAMIN 10-325 MG TAB PO PRN ×2 (14:03→22:08)
[2018-10-04 16:07] VITALS: BP_SYST 101
[2018-10-04 16:10] LABS: TOTAL IRON BIND. CAPACITY 236 ug/dL (250-450)
[2018-10-04] MEDS: LORazepam 1 MG TABLET PO PRN ×2 (17:46→22:07)
[2018-10-04 19:59] VITALS: BP_SYST 93
[2018-10-05 00:50] VITALS: BP_SYST 107
[2018-10-05 06:26] LABS: BASOPHILS % (AUTO) 0.6 % (0.0-2.0); EOSINOPHILS # (AUTO) 0.3 K/uL (0.0-0.4); EOSINOPHILS % (AUTO) 4.3 % (0.0-4.0); LYMPHOCYTES # (AUTO) 2.4 K/uL (1.0-5.5); LYMPHOCYTES % (AUTO) 37.6 % (20.5-51.5); MEAN CORPUSCULAR HEMOGLOBIN 25 pg (27-31); MEAN CORPUSCULAR HGB CONC 32 % (32-36); MEAN CORPUSCULAR VOLUME 78 fL (79.0-98.0); MONOCYTES # (AUTO) 0.6 K/uL (0.0-1.0); MONOCYTES % (AUTO) 9.5 % (1.7-9.3); NEUTROPHILS # (AUTO) 3.1 K/uL (1.8-7.7); PLATELET COUNT (AUTO) 255 K/uL (130-430); RED CELL DISTRIBUTION WIDTH 13.4 % (9.0-15.0); WHITE BLOOD COUNT (AUTO) 6.5 K/uL (4.8-10.8)
[2018-10-05 06:59] LABS: CALCIUM 8.1 mg/dL (8.4-11.0); CREATININE 1.32 mg/dL (0.55-1.30); POTASSIUM 3.8 mmol/L (3.5-5.1)
[2018-10-05 07:10] LABS: ALBUMIN 2.6 g/dL (3.4-4.8); TOTAL BILIRUBIN 0.4 mg/dL (0.0-1.0)
[2018-10-05 08:00] VITALS: BP_SYST 113
[2018-10-05] MEDS: DOCUSATE SODIUM 250 MG CAPSULE PO SCH ×3 (09:03→20:26)
[2018-10-05] MEDS: TOPIRAMATE 25 MG TABLET(TOPAMAX) PO SCH ×2 (09:04→20:22)
[2018-10-05] MEDS: PANTOPRAZOLE SODIUM 40 MG TAB PO SCH (09:04)
[2018-10-05] MEDS: PROPRANOLOL HCL (INDERAL LA 60MG) PO SCH (09:04)
[2018-10-05] MEDS: PARoxetine HCL 20 MG TABLET PO SCH (09:04)
[2018-10-05] MEDS: NACL 0.9% 1,000 ML IV SCH ×2 (10:22→23:06)
[2018-10-05 12:41] VITALS: BP_SYST 134
[2018-10-05] MEDS: busPIRone HCL 5 MG TABLET PO SCH ×2 (15:14→20:22)
[2018-10-05 16:31] VITALS: BP_SYST 127
[2018-10-05] MEDS: HYDROcodone/ACETAMIN 10-325 MG TAB PO PRN (19:52)
[2018-10-05 20:19] VITALS: BP_SYST 136
[2018-10-06] MEDS: LORazepam 1 MG TABLET PO PRN (00:02)
[2018-10-06 00:36] VITALS: BP_SYST 126
[2018-10-06] MEDS: HYDROcodone/ACETAMIN 5-325 MG TAB (NORCO/ VICODIN) PO PRN ×3 (03:54→18:45)
[2018-10-06 05:06] LABS: FOLATE (FOLIC ACID) >20.0 ng/mL (>3.0)
[2018-10-06 06:44] LABS: BASOPHILS % (AUTO) 0.4 % (0.0-2.0); EOSINOPHILS # (AUTO) 0.2 K/uL (0.0-0.4); HEMATOCRIT 27.6 % (36-48); HEMOGLOBIN 8.7 g/dL (12.0-16.0); LYMPHOCYTES # (AUTO) 1.9 K/uL (1.0-5.5); LYMPHOCYTES % (AUTO) 33.6 % (20.5-51.5); MEAN CORPUSCULAR HEMOGLOBIN 25 pg (27-31); MEAN CORPUSCULAR HGB CONC 32 % (32-36); MEAN CORPUSCULAR VOLUME 79 fL (79.0-98.0); MONOCYTES # (AUTO) 0.5 K/uL (0.0-1.0); MONOCYTES % (AUTO) 9.6 % (1.7-9.3); NEUTROPHILS # (AUTO) 2.9 K/uL (1.8-7.7); NEUTROPHILS % (AUTO) 52.4 % (40.0-70.0); PLATELET COUNT (AUTO) 244 K/uL (130-430); RED BLOOD CELL COUNT(AUTO) 3.51 MIL/uL (4.2-6.2); RED CELL DISTRIBUTION WIDTH 13.6 % (9.0-15.0); WHITE BLOOD COUNT (AUTO) 5.6 K/uL (4.8-10.8)
[2018-10-06 07:52] LABS: CALCIUM 8.2 mg/dL (8.4-11.0); CREATININE 0.99 mg/dL (0.55-1.30); POTASSIUM 3.2 mmol/L (3.5-5.1)
[2018-10-06 08:50] VITALS: BP_SYST 146
[2018-10-06] MEDS: PARoxetine HCL 20 MG TABLET PO SCH (08:56)
[2018-10-06] MEDS: TOPIRAMATE 25 MG TABLET(TOPAMAX) PO SCH (08:57)
[2018-10-06] MEDS: PROPRANOLOL HCL (INDERAL LA 60MG) PO SCH (09:00)
[2018-10-06] MEDS: DOCUSATE SODIUM 250 MG CAPSULE PO SCH (09:00)
[2018-10-06] MEDS: PANTOPRAZOLE SODIUM 40 MG TAB PO SCH (09:00)
[2018-10-06] MEDS: busPIRone HCL 5 MG TABLET PO SCH ×2 (09:01→14:27)
[2018-10-06] MEDS ORDERED: POTASSIUM CHLORIDE 20 MEQ TAB.PRT.SR PO ONE (11:45)
[2018-10-06 12:30] VITALS: BP_SYST 133
[2018-10-06 16:00] VITALS: BP_SYST 140
[2018-10-06 16:11] VITALS: BP_SYST 140
[2018-10-06] MEDS ORDERED: PROP60CA6 PO (17:35)
[2018-10-06] MEDS ORDERED: ZOF SL (17:36)
[2018-10-06 20:00] VITALS: BP_SYST 153
== END 2018-10-06 19:30 | disposition home or self-care (01) | DRG 85 ==
LOC: SED 12:29 → STU 15:42 → SMU 10-02 14:51
PROVIDERS: ADMIT Internal Medicine; ATTEND Internal Medicine
DX: S06.6X0A Traumatic subarachnoid hemorrhage without loss of consciousness, initial encounter (principal); N17.0 Acute kidney failure with tubular necrosis; S02.32XA Fracture of orbital floor, left side, initial encounter for closed fracture; H11.32 Conjunctival hemorrhage, left eye; S63.509A Unspecified sprain of unspecified wrist, initial encounter; R04.0 Epistaxis; S09.92XA Unspecified injury of nose, initial encounter; I10 Essential (primary) hypertension; F41.9 Anxiety disorder, unspecified; S09.8XXA Other specified injuries of head, initial encounter; E66.9 Obesity, unspecified; D64.9 Anemia, unspecified; W01.0XXA Fall on same level from slipping, tripping and stumbling without subsequent striking against object, initial encounter; Y93.89 Activity, other specified; Y92.89 Other specified places as the place of occurrence of the external cause; Y99.8 Other external cause status; Z88.1 Allergy status to other antibiotic agents; Z88.8 Allergy status to other drugs, medicaments and biological substances; Z91.018 Allergy to other foods; Z91.048 Other nonmedicinal substance allergy status; Z79.82 Long term (current) use of aspirin; Z79.899 Other long term (current) drug therapy; Z68.36 Body mass index [BMI] 36.0-36.9, adult
CPT/HCPCS: 36415; 70160-TC; 70450-TC; 70486-TC; 72125-TC; 76770; 80048; 80053; 81003; 82550-TC; 82607; 82746; 83540-TC; 83550-TC; 84439; 84484; 85025; 85610-TC; 85730-TC; 93005; 96372; 96374; 99285; G0378; J2060; J2270; J3010; J7030; J7042; J8597

== ENCOUNTER 2018-12-09 09:41 | Inpatient (IN) | payer OTHER ==
[~2018-12-09] VITALS: Ht 165.1 cm; Wt 104.3 kg
[~2018-12-09 09:41] MED LIST changes: +BUSP10TA3 PO; -CARV6.2554 PO; -FAMO20TA8 PO; -HYDR50CA PO; -MECL12.584 PO; -PHEDM120 PO; +PROP60CA6 PO; +TOP25 PO; +ZOF SL
--- NOTE | 2018-12-09 09:42 | NUR ---
Patient to ER bed 6 to gown for evaluation. Side rails up. Report given to LYLE Salas.
[2018-12-09 09:48] VITALS: BP_SYST 158
--- NOTE | 2018-12-09 09:51 | NUR ---
Patient AAOx4, accompanied by , c/o left arm numbness. Patient states, "Everything feels like it is drifting to my left side." Patient reports history of HTN, anxiety, depression, panic attacks, vertigo, bilateral knee replacement, right hip replacement, hysterectomy, and right breast biopsy. Patient denies pain. Skin warm/dry/intact. Respirations even and unlabored. No signs or symptoms of acute distress noted.
--- NOTE | 2018-12-09 10:05 | NUR ---
RACHEL Duncan at bedside examining patient.
[2018-12-09] MEDS ORDERED: LORazepam 2 MG/ML VIAL (FOR ER USE) IVP ONE (10:30)
[2018-12-09 11:43] LABS: BASOPHILS # (AUTO) 0.1 K/uL (0.0-0.2); BASOPHILS % (AUTO) 0.7 % (0.0-2.0); EOSINOPHILS # (AUTO) 0.2 K/uL (0.0-0.4); EOSINOPHILS % (AUTO) 2.4 % (0.0-4.0); HEMATOCRIT 37.7 % (36-48); HEMOGLOBIN 12.5 g/dL (12.0-16.0); LYMPHOCYTES # (AUTO) 1.9 K/uL (1.0-5.5); MEAN CORPUSCULAR HEMOGLOBIN 29 pg (27-31); MEAN CORPUSCULAR HGB CONC 33 % (32-36); MEAN CORPUSCULAR VOLUME 86 fL (79.0-98.0); MONOCYTES # (AUTO) 0.6 K/uL (0.0-1.0); MONOCYTES % (AUTO) 8.3 % (1.7-9.3); NEUTROPHILS # (AUTO) 4.5 K/uL (1.8-7.7); NEUTROPHILS % (AUTO) 62.6 % (40.0-70.0); PLATELET COUNT (AUTO) 280 K/uL (130-430); RED CELL DISTRIBUTION WIDTH 19.4 % (9.0-15.0); WHITE BLOOD COUNT (AUTO) 7.2 K/uL (4.8-10.8)
[2018-12-09 11:58] LABS: ANION GAP 6 (5-15); CHLORIDE 105 mmol/L (98-107); CREATININE 0.94 mg/dL (0.55-1.30); GLUCOSE 119 mg/dL (70-99); POTASSIUM 4.1 mmol/L (3.5-5.1); SODIUM SERUM 140 mmol/L (136-145); UREA NITROGEN, BLOOD 15 mg/dL (8-21)
[2018-12-09 12:06] LABS: GFR AFRICAN AMERICAN 78 mL/min (>90)
[2018-12-09 12:07] LABS: ALANINE AMINOTRANSFERASE 31 U/L (12-78); ALBUMIN 3.2 g/dL (3.4-4.8); ASPARTATE AMINOTRANSFERASE 18 U/L (10-37); TOTAL BILIRUBIN 0.2 mg/dL (0.0-1.0)
[2018-12-09] MEDS ORDERED: LORazepam 2 MG/ML VIAL (FOR ER USE) ONE (12:37)
[2018-12-09] MEDS ORDERED: MORPHINE 4 MG/ML INJ. SYRINGE IVP ONE (12:45)
[2018-12-09] MEDS ORDERED: NACL 0.9% 1,000 ML IV ONE (12:45)
[2018-12-09 12:57] LABS: BILIRUBIN,URINE NEGATIVE (NEGATIVE); BLOOD, URINE NEGATIVE (NEGATIVE); CLARITY/URINE CLEAR (CLEAR); COLOR,URINE YELLOW (YELLOW); GLUCOSE,URINE NEGATIVE (NEGATIVE); KETONES,URINE NEGATIVE (NEGATIVE); LEUKOCYTE ESTERASE ,URINE NEGATIVE (NEGATIVE); NITRITE, URINE NEGATIVE (NEGATIVE); PROTEIN URINE NEGATIVE (NEGATIVE); UROBILINOGEN,URINE 0.2 (0.2-1.0)
--- NOTE | 2018-12-09 13:00 | NUR ---
Dr. Andrews in to see patient.
--- NOTE | 2018-12-09 13:05 | NUR ---
Dr. Andrews reviewed medication record and updated for admit while patient was in ER.
--- NOTE | 2018-12-09 13:10 | NUR ---
Patient will be admitted to care of Dr. Andrews. Admitted to telemetry unit. Will go to room 109C. Belongings list completed. Summary report printed. Report will be given at bedside.
[2018-12-09] MEDS ORDERED: busPIRone HCL 5 MG TABLET PO ONE (13:15)
[2018-12-09] MEDS ORDERED: PANTOPRAZOLE SODIUM 40 MG TAB PO ONE (13:15)
[2018-12-09] MEDS ORDERED: INSULIN REGULAR, HUMAN 100 UNITS/ML, 10 ML VIAL (humuLIN R) SUBCUT PRN (13:15)
[2018-12-09] MEDS ORDERED: TOPIRAMATE 25 MG TABLET(TOPAMAX) PO ONE (13:15)
[2018-12-09] MEDS ORDERED: MAG-AL HYDROX/SIMETH 30 ML UDC PO PRN (13:15)
[2018-12-09] MEDS ORDERED: DEXTROSE 50% JECT 50 ML DISP.SYRIN IVP PRN (13:15)
--- NOTE | 2018-12-09 13:16 | NUR ---
Patient transferred via gurney, mobile monitor, RN, and EMT. Report to be given at bedside.
--- NOTE | 2018-12-09 13:25 | NUR ---
ADMISSION NOTE Received patient from ER via heather, received report from Enoch ALVARENGA. Patient admitted with diagnosis of Chest pain. Patient oriented to hospital routine, call light, toileting and safety-patient verbalized understanding.
[2018-12-09 13:39] VITALS: BP_SYST 168
--- NOTE | 2018-12-09 13:46 | NUR ---
Cardiac consult called: for Dr. Kearns, regarding chest pain, ordered by Dr. Andrews, spoke with
[2018-12-09] MEDS: LORazepam 1 MG TABLET PO PRN (14:34)
--- NOTE | 2018-12-09 14:36 | NUR ---
buspar 10 mg tablet and ativan 1 mg tablet given for anxiety.
--- NOTE | 2018-12-09 14:37 | NUR ---
refused to haver non slip socks. still with tramors on both arms.
--- NOTE | 2018-12-09 14:48 | NUR ---
called for dr shepard to verify medication orders.
--- NOTE | 2018-12-09 15:00 | NUR ---
called again dr shepard. awaiting to call back.
[2018-12-09 16:18] VITALS: BP_SYST 132
--- NOTE | 2018-12-09 16:24 | NUR ---
informed Home Charge nurse dr shepard not calling back yet. for pain medication order.
[2018-12-09] MEDS ORDERED: HYDROcodone/ACETAMIN 5-325 MG TAB (NORCO/ VICODIN) PO PRN (16:45)
[2018-12-09] MEDS: MORPHINE 4 MG/ML INJ. SYRINGE IVP PRN ×2 (17:02→21:33)
--- NOTE | 2018-12-09 17:03 | NUR ---
morphine 4 mg iv given. made comfortable.
[2018-12-09] MEDS ORDERED: PARoxetine HCL 20 MG TABLET PO SCH (18:00)
--- NOTE | 2018-12-09 18:29 | NUR ---
eating dinner tray. yvonne the at the bedside. verbalized no pain at this time. feels much better
--- NOTE | 2018-12-09 18:37 | NUR ---
please follow up dr shepard for orders of ativan iv, patient is claustrophic for MRI of head/brain tomorrow. thanks.
--- NOTE | 2018-12-09 19:15 | NUR ---
endorsed to Chayito ALVARENGA.
--- NOTE | 2018-12-09 19:40 | NUR ---
ROUNDS PATIENT IN BED, WATCHING TV, NOT IN DISTRESS, ON ROOM AIR, VITALS STABLE. DENIES ANY PAIN AND DISCOMFORT AT THIS TIME. ASSESSMENT DONE AND DOCUMENTED. NEEDS ATTENDED TO. SAFETY AND FALL PRECAUTION MEASURES IN PLACED. CALL LIGHT PLACED WITHIN REACH.
[2018-12-09 20:00] VITALS: BP_SYST 142
[2018-12-09] MEDS: CARVEDILOL 6.25 MG TABLET (COREG) PO SCH (21:00)
[2018-12-09] MEDS: LORazepam 1 MG TABLET PO SCH (21:01)
[2018-12-09] MEDS: busPIRone HCL 5 MG TABLET PO SCH (21:01)
[2018-12-09] MEDS: TOPIRAMATE 25 MG TABLET(TOPAMAX) PO SCH (21:01)
--- NOTE | 2018-12-09 21:20 | NUR ---
MEDICATION DUE MEDICATIONS GIVEN ORDERED, TOLERATED WELL. WILL CONTINUE TO MONITOR.
--- NOTE | 2018-12-10 00:16 | NUR ---
PATIENT RESTING: Patient resting quietly. No acute distress noted. Vital signs within normal range.
--- NOTE | 2018-12-10 02:13 | NUR ---
ROUNDS PATIENT ASLEEP, RESPIRATIONS EVEN AND UNLABORED, NO SIGNS OF ANY PAIN AND DISCOMFORT NOTED. WILL CONTINUE TO MONITOR.
[2018-12-10] MEDS: LORazepam 1 MG TABLET PO PRN (02:17)
[2018-12-10 02:27] VITALS: BP_SYST 143
--- NOTE | 2018-12-10 04:10 | NUR ---
ROUNDS PATIENT SLEEPING, RESPIRATIONS EVEN AND UNLABORED, NO SIGNS OF ANY PAIN AND DISCOMFORT NOTED. WILL CONTINUE TO MONITOR.
--- NOTE | 2018-12-10 06:25 | NUR ---
CLOSING NOTES PATIENT AWAKE, VITALS STABLE, NO PAIN AT THIS TIME. ALL NEEDS ATTENDED TO. SAFETY MEASURES MAINTAINED. CALL LIGHT PLACED WITHIN REACH.
--- NOTE | 2018-12-10 07:35 | NUR ---
Opening note patient resting in bed at this time, No SOB. A/Ox4, no complaints of pain. Iv patent, and intact. No bleeding noted. On safety and aspiration precautions, HOB kept elevated, bed in lowest position, bed alarm on, 2 side rails up, call light within reach. Will continue to monitor.
[2018-12-10 07:54] LABS: BASOPHILS # (AUTO) 0.1 K/uL (0.0-0.2); BASOPHILS % (AUTO) 0.8 % (0.0-2.0); EOSINOPHILS # (AUTO) 0.2 K/uL (0.0-0.4); EOSINOPHILS % (AUTO) 2.5 % (0.0-4.0); HEMATOCRIT 35.6 % (36-48); HEMOGLOBIN 11.7 g/dL (12.0-16.0); LYMPHOCYTES # (AUTO) 2.1 K/uL (1.0-5.5); LYMPHOCYTES % (AUTO) 30.5 % (20.5-51.5); MEAN CORPUSCULAR HEMOGLOBIN 29 pg (27-31); MEAN CORPUSCULAR HGB CONC 33 % (32-36); MEAN CORPUSCULAR VOLUME 88 fL (79.0-98.0); MONOCYTES # (AUTO) 0.5 K/uL (0.0-1.0); MONOCYTES % (AUTO) 7.3 % (1.7-9.3); NEUTROPHILS # (AUTO) 4.1 K/uL (1.8-7.7); NEUTROPHILS % (AUTO) 58.9 % (40.0-70.0); PLATELET COUNT (AUTO) 245 K/uL (130-430); RED BLOOD CELL COUNT(AUTO) 4.07 MIL/uL (4.2-6.2); RED CELL DISTRIBUTION WIDTH 19.4 % (9.0-15.0); WHITE BLOOD COUNT (AUTO) 6.9 K/uL (4.8-10.8)
[2018-12-10 08:08] VITALS: BP_SYST 138
[2018-12-10 08:19] LABS: ANION GAP 5 (5-15); CHLORIDE 109 mmol/L (98-107); POTASSIUM 4.2 mmol/L (3.5-5.1); SODIUM SERUM 142 mmol/L (136-145)
[2018-12-10 08:20] LABS: ALANINE AMINOTRANSFERASE 29 U/L (12-78); ASPARTATE AMINOTRANSFERASE 18 U/L (10-37); CALCIUM 8.6 mg/dL (8.4-11.0); CREATININE 0.96 mg/dL (0.55-1.30); GFR AFRICAN AMERICAN 76 mL/min (>90); GLUCOSE 116 mg/dL (70-99); TOTAL BILIRUBIN 0.3 mg/dL (0.0-1.0); UREA NITROGEN, BLOOD 16 mg/dL (8-21)
[2018-12-10 08:21] LABS: CHOLESTEROL 178 mg/dL (<200); FREE T4 (FREE THYROXINE) 0.5 ng/dL (0.6-1.6); HDL CHOLESTEROL 35 mg/dL (>55); LDL CHOLESTEROL 113 mg/dL (<100); TRIGLYCERIDES 167 mg/dL (30-150)
[2018-12-10 08:22] LABS: THYROID STIMULATING HORMONE 1.22 uIu/mL (0.34-4.82)
[2018-12-10 08:36] LABS: LIPASE 135 U/L (73-393)
[2018-12-10] MEDS: busPIRone HCL 5 MG TABLET PO SCH ×3 (09:00→21:42)
[2018-12-10] MEDS ORDERED: LORazepam 2 MG/ML VIAL IVP ONE (09:00)
[2018-12-10] MEDS: TOPIRAMATE 25 MG TABLET(TOPAMAX) PO SCH ×2 (09:00→21:42)
[2018-12-10] MEDS ORDERED: PROPRANOLOL HCL (INDERAL LA 60MG) PO SCH (09:00)
[2018-12-10] MEDS: PANTOPRAZOLE SODIUM 40 MG TAB PO SCH (09:01)
[2018-12-10] MEDS: PARoxetine HCL 20 MG TABLET PO SCH (09:01)
[2018-12-10] MEDS: CARVEDILOL 6.25 MG TABLET (COREG) PO SCH ×2 (09:01→21:49)
--- NOTE | 2018-12-10 09:30 | NUR ---
Medications All morning medications given as ordered, tolerated well. No adverse side effects noted. No nausea, no vomiting, no dizziness.
[2018-12-10] MEDS: MORPHINE 4 MG/ML INJ. SYRINGE IVP PRN ×3 (10:35→19:48)
--- NOTE | 2018-12-10 10:35 | NUR ---
UA Gave patient instructions for UA collection. Patient provided sample, sent to lab as ordered. Patient in stable condition at this time.
[2018-12-10 11:04] LABS: BILIRUBIN,URINE NEGATIVE (NEGATIVE); BLOOD, URINE NEGATIVE (NEGATIVE); CLARITY/URINE CLEAR (CLEAR); COLOR,URINE YELLOW (YELLOW); GLUCOSE,URINE NEGATIVE (NEGATIVE); KETONES,URINE NEGATIVE (NEGATIVE); LEUKOCYTE ESTERASE ,URINE NEGATIVE (NEGATIVE); NITRITE, URINE NEGATIVE (NEGATIVE); PROTEIN URINE NEGATIVE (NEGATIVE); UROBILINOGEN,URINE 0.2 (0.2-1.0)
--- NOTE | 2018-12-10 11:10 | NUR ---
Patient left unit for MRI Disconnected patient from tele monitor, patient in stable condition, went for MRI via wheelchair.
[2018-12-10 12:00] VITALS: BP_SYST 133
--- NOTE | 2018-12-10 12:00 | NUR ---
Patient returned from MRI Patient returned from MRI, in stable condition. Connected patient back to tele monitor. Patient in stable condition, patient refusing blood sugar checks, educated patient on need, patient still refusing.
[2018-12-10] MEDS: LORazepam 1 MG TABLET PO SCH ×4 (12:29→21:44)
--- NOTE | 2018-12-10 14:37 | NUR ---
Pain medication patient resting in bed, awake, states severe pain, educated on pain medication uses and potential side effects, she verbalized understanding, IV line is patent and infusing well, fall and aspiration precautions in place, call light within patient reach.
--- NOTE | 2018-12-10 16:13 | NUR ---
Rounds Patient resting in bed, no complaints of pain. Patient is sleeping. Iv patent, and intact, no bleeding noted. No nausea, no vomiting noted. Patient in stable condition at this time.
[2018-12-10 16:37] VITALS: BP_SYST 151
--- NOTE | 2018-12-10 19:15 | NUR ---
OPENING NOTES RECEIVED PATIENT IN BED AAO X4. AT BEDSIDE. BREATHING UNLABORED ON ROOM AIR. NO C/O PAIN AT THIS TIME. BED IN LOWEST LOCKED POSITION. CALL LIGHT WITH IN REACH.
--- NOTE | 2018-12-10 19:22 | NUR ---
Closing note Patient sitting up in bed, eating dinner, tolerating well, no nausea, no vomiting noted. No SOB. A/Ox4, no complaints of pain. Iv patent, and intact. No bleeding noted. On safety and aspiration precautions, HOB kept elevated, bed in lowest position, bed alarm on, 2 side rails up, call light within reach. Patient in stable condition.All needs met.
[2018-12-10 19:43] VITALS: BP_SYST 122
--- NOTE | 2018-12-10 19:48 | NUR ---
PAIN MGT PATIENT MEDICATED WITH MORPHINE FOR C/O POUNDING HEADACHE 02/02. POSSIBLE SIDE EFFECTS DISCUSSED WITH PATIENT. VITAL SIGNS STABLE. AT BEDSIDE.
--- NOTE | 2018-12-10 21:49 | NUR ---
MED PASS PATIENT DUE MEDICATIONS GIVEN AND TOLERATED. PATIENT REFUSED BLOOD SUGAR CHECK. HS SNACK PROVIDED PER PATIENT REQUEST.
--- NOTE | 2018-12-10 23:00 | NUR ---
ROUNDS PATIENT EYES CLOSED. SNORING ON AND OFF. NO DISTRESS NOTED.
[2018-12-10 23:57] VITALS: BP_SYST 135
--- NOTE | 2018-12-11 00:51 | NUR ---
ROUNDS PATIENT RESTING IN BED. BREATHING UNLABORED ON ROOM AIR. CALL LIGHT WITH IN REACH. BED ALARM ON.
[2018-12-11] MEDS: MORPHINE 4 MG/ML INJ. SYRINGE IVP PRN ×4 (03:44→18:50)
--- NOTE | 2018-12-11 03:44 | NUR ---
PAIN M GT PATIENT MEDICATED WITH MORPHINE FOR C/O HEADACHE 02/02. VITAL SIGNS STABLE. CALL LIGHT WITH IN REACH. BED ALARM ON.
--- NOTE | 2018-12-11 06:37 | NUR ---
CLOSING NOTES PATIENT RESTING IN BED. BREATHING UNLABORED ON ROOM AIR. PATIENT NEEDS ATTENDED. BED IN LOWEST LOCKED POSITION. CALL LIGHT WITH IN REACH. BED ALARM ON.
--- NOTE | 2018-12-11 07:55 | NUR ---
OPENING NOTE Patient resting in the bed. No acute distress. AAO x 4. C/O headache. Skin warm and dry to touch. SL intact to LAC, no redness, no swelling, patent. Discussed the safety issue, use call light when needs help, and plan of care, verbally understanding. Safety measure maintained. Bed locked in low position, side rails up. Refused bed alarm, risk and benefit explained, verbally understanding. Call light within reached. Continue to monitor.
[2018-12-11 08:05] VITALS: BP_SYST 154
[2018-12-11] MEDS: PARoxetine HCL 20 MG TABLET PO SCH (08:37)
[2018-12-11] MEDS: busPIRone HCL 5 MG TABLET PO SCH ×3 (08:37→22:14)
[2018-12-11] MEDS: CARVEDILOL 6.25 MG TABLET (COREG) PO SCH ×2 (08:38→22:15)
[2018-12-11] MEDS: PANTOPRAZOLE SODIUM 40 MG TAB PO SCH (08:38)
[2018-12-11] MEDS: TOPIRAMATE 25 MG TABLET(TOPAMAX) PO SCH ×2 (08:38→22:14)
--- NOTE | 2018-12-11 08:45 | NUR ---
SEEN AN EXAMINED BY VILMA NESS. Assessed ans answered the question that the patient had at bedside. Review the test result wit patient, verbally understanding.
[2018-12-11] MEDS: LORazepam 1 MG TABLET PO SCH ×5 (09:29→22:14)
--- NOTE | 2018-12-11 10:10 | NUR ---
ROUND Patient resting in the bed with eyes closed. No acute distress. Safety measure maintained. Bed locked in low position, side rails up. Call light within reached. Continue to monitor.
[2018-12-11 11:30] VITALS: BP_SYST 125
--- NOTE | 2018-12-11 11:38 | NUR ---
REFUSED FINGERSTICK BLOOD SUGAR CHECK Risk and benefit explained, verbally understanding.
--- NOTE | 2018-12-11 14:43 | NUR ---
MORPHINE GIVEN Patient c/o headache 01/02, Morphine 4mg IVP given as ordered. No acute distress. Safety measure maintained. Bed locked in low position, side rails up. Call light within reached. Continue to monitor.
[2018-12-11 15:34] VITALS: BP_SYST 116
[2018-12-11] MEDS: LORazepam 1 MG TABLET PO PRN (16:45)
--- NOTE | 2018-12-11 16:47 | NUR ---
ATIVAN ORDER Seen and examined by Dr. Andrews [facility] with new order of Ativan. Per Dr. Andrews give the schedule Ativan 1mg and PRN Ativan 1mg PO together now. at bedside aware. Informed to Dr. Andrews, patient refused fingerstick blood sugar check.
--- NOTE | 2018-12-11 18:38 | NUR ---
CLOSING NOTE Patient resting in the bed. No acute distress. PRN pain med given as needed. Skin warm and dry to touch. SL intact to LAC, no redness, no swelling, patent. All needs met and attended. Safety measure maintained. Bed locked in low position, side rails up. Refused bed alarm, risk and benefit explained, verbally understanding. Call light within reached. Will endorse to night nurse.
--- NOTE | 2018-12-11 19:25 | NUR ---
INITIAL NOTES: RECEIVED BEDSIDE REPORT FROM RN TODD. PATIENT IN BED SOUND ASLEEP AFTER ATIVAN 2MG PO TAKEN FROM AM RN.BREATHING REGULAR THROUGH MOUTH. AT BEDSIDE
[2018-12-11 20:25] VITALS: BP_SYST 133
--- NOTE | 2018-12-11 20:25 | NUR ---
OXYGEN 2 LITERS PER NASAL CANNULA SAT.ON RA 89%,SOUND ASLEEP SNORING WITH MOUTH BREATHING ,DEEP AND SHALLOW RR 20/MIN O2 WENT UP TO 96 %. BACK TO SLEEP AFTER.
--- NOTE | 2018-12-11 21:05 | NUR ---
ROUNDS: PATIENT CONTINUE TO SLEEP WITH OXYGEN ON.
--- NOTE | 2018-12-11 22:05 | NUR ---
MEDS ADMIN/ HYGIENE: REFUSE BLOOD SUGAR CHECKS SINCE ADMISSION.ALL DUE PO MEDS GIVEN WITHOUT DIFFICULTY. LINENS CHANGED DUE TO PERSPIRATIONS. AMBULATED TO BATHROOM TO VOID. JELLO AND PUDDING GIVEN FOR SNACKS SINCE REFUSE DINNER TRAY THAT WAS SAVED.
--- NOTE | 2018-12-11 22:50 | NUR ---
EXPLAINED USE OF NECK COLLAR. REFUSE SAID WILL USE TOMORROW MORNING.
--- NOTE | 2018-12-12 | NUR ---
ROUNDS: PATIENT SLEEPING WITH SNORE. SAT. 96% ON ROOM AIR.BREATHING SHALLOW AND DEEP.
[2018-12-12 01:00] VITALS: BP_SYST 119
--- NOTE | 2018-12-12 02:15 | NUR ---
CONTINUE TO SLEEP DURING ROUNDS.
[2018-12-12 03:55] VITALS: BP_SYST 141
[2018-12-12] MEDS: MORPHINE 4 MG/ML INJ. SYRINGE IVP PRN ×4 (04:01→20:28)
--- NOTE | 2018-12-12 04:05 | NUR ---
PATIENT CALLED FOR PAIN MED.VERBALIZED HAD JUST FINISHED VOIDING AND HAD BM . AMBULATED TO BATHROOM. MEDICATED WITH MORPHINE 4MG IV.
[2018-12-12] MEDS: LORazepam 1 MG TABLET PO PRN ×2 (05:24→10:15)
--- NOTE | 2018-12-12 06:11 | NUR ---
CLOSING: ALL NEEDS WERE ATTENDED. NO ACUTE CARDIOPULMONARY DISTRESS. PAIN AND ANXIETY FAIRLY CONTROLLED BY MORPHINE IV AND ATIVAN PO/IV. AMBULATED TO BATHROOM TO VOID WITHOUT PROBLEM. SALINE LOCK PATENT. WILL ENDORSE CARE TO AM RN.
--- NOTE | 2018-12-12 07:44 | NUR ---
RN OPENING NOTE Report was endorsed by night nurse. Patient appears to be resting with both eyes closed no signs of any distress, breathing is equal and non labored. Patient has all safety precautions in place. Per night nurse patient is refusing accu checks, also refusing to wear sofft collar when sleeping states she cant sleep with it on. no other needs at this time will continue to monitor. all safety precautions in place.
[2018-12-12 08:48] VITALS: BP_SYST 110
[2018-12-12] MEDS: busPIRone HCL 5 MG TABLET PO SCH ×3 (08:53→21:49)
[2018-12-12] MEDS: LORazepam 1 MG TABLET PO SCH ×5 (08:53→21:49)
[2018-12-12] MEDS: TOPIRAMATE 25 MG TABLET(TOPAMAX) PO SCH ×2 (08:54→21:49)
[2018-12-12] MEDS: CARVEDILOL 6.25 MG TABLET (COREG) PO SCH ×2 (08:54→21:48)
[2018-12-12] MEDS: PANTOPRAZOLE SODIUM 40 MG TAB PO SCH (08:54)
[2018-12-12] MEDS: PARoxetine HCL 20 MG TABLET PO SCH (08:54)
--- NOTE | 2018-12-12 09:09 | NUR ---
Medication/held BP medication at nurses station informed that patients blood pressure is running low 118/52 ok to hold blood pressure medication and given scheduled ativan and buspar, also ok to give pain medication.Per Dr. Kearns is patient blood pressure increases ok to give blood pressure mediation later on. All other scheduled pain medication given to patient, also the pain medication as requested by patient. Patient educated contract specialist light for assistance, call light is with patient. Patient educated on assistance due to pain medication side effects, patient verbalized understanding. Patient states she is going to try and rest some more. no other needs at this time will continue to monitor.
--- NOTE | 2018-12-12 10:18 | NUR ---
anxiety Patient is still experiencing some anxiety, administered PRN medication. Patients spouse is at bedside. Patient bp is stable 116/58.Patient dosing asleep while in the room. Patient was educated operations specialist light for assistance call light is with patient. Patient has no other needs at this time will continue to monitor.
--- NOTE | 2018-12-12 11:41 | NUR ---
refusing Accu check Patient is refusing accu check educated on importance. Spouse at bedside. Patient has all safety precautions in place no other needs at this time. saw patient at bedside is aware of patients uncontrolled pain and anxiety he will place orders.
--- NOTE | 2018-12-12 12:47 | NUR ---
CONSULTATION CALLED Reason for Consultation: DJD OF C-SPINE Person Who was Notified: CROW AT EXCHANGE Consulting Physician: DR. FLORES Die Try Out Worker Specialty: NEUROSURGEON Ordering Physician: DR. GRIFFITHS
--- NOTE | 2018-12-12 12:51 | NUR ---
neurosurgeon consult DR. RIOS COVERING FOR DR FLORES CALLED BACK RE- CONSULT, SHE SAID DJD OF THE SPINE CAN BE AN OUTPATIENT FOLLOW UP, SHE WILL WAIT FOR THE RESULT OF THE CT SPINE AND SEE IF PT NEEDS FOLLOW UP.
--- NOTE | 2018-12-12 12:52 | NUR ---
CONSULTATION CALLED Reason for Consultation: SEVERE ANXIETY Person Who was Notified: DELTA AT EXCHANGE Consulting Physician: DR. STEPHENSON-DR. MICHAUD ENGINEERING CONSULTANT Candy Cutter Machine Specialty: PSYCH Ordering Physician: DR. GRIFFITHS
[2018-12-12 13:01] VITALS: BP_SYST 134
--- NOTE | 2018-12-12 13:30 | NUR ---
Pain medication/scheduled Ativan Patient complains of pain and anxiety medicated per order. Patient is awake and alert, sent for CT scan via wheel chair. Patients breathing is equal and non labored informed quality control tech raw materials that patient was just medicated for pain. Patient has no other needs at this time will continue to monitor.
--- NOTE | 2018-12-12 15:49 | NUR ---
MEDICATION Patients scheduled medication given as ordered. Patient is laying in bed no signs of any distress, breathing is equal and non labored. Patient has all safety precautions in place. Call light is with patient. Spouse at bed side. will continue to monitor.
[2018-12-12 16:36] VITALS: BP_SYST 124
--- NOTE | 2018-12-12 17:20 | NUR ---
Medication Patients scheduled medication given per order. Patient is laying in bed no signs of any distress, breathing is equal and non labored. Patient has all safety precautions in place. call light is with her educated to use for assistance. Patients spouse is at bedside. will continue to monitor.
--- NOTE | 2018-12-12 18:33 | NUR ---
RN CLOSING NOTE PATIENT APPEARS TO BE RESTING WITH BOTH EYES CLOSED NO SIGNS OF ANY DISTRESS, BREATHING IS EQUAL AND NON LABORED. PATIENTS SPOUSE IS AT BEDSIDE. PATIENT HAS ALL SAFETY PRECAUTIONS IN PLACE. WILL ENDORSE REPORT TO ONCOMING NIGHT NURSE.
--- NOTE | 2018-12-12 19:30 | NUR ---
INITIAL NOTES: RECEIVED BEDSIDE REPORT AND SEEN PATIENT SLEEPING SOUNDLY ,BREATHING THROUGH MOUTH. AT BEDSIDE. WILL BE BACK WHEN WAKES UP.BREATHING DEEP AND SHALLOW.
--- NOTE | 2018-12-12 20:25 | NUR ---
PAIN: MEDICATED WITH MORPHINE 4MG IV FOR PAIN LEVEL OF 10/10 ,PAIN ON BACK OF NECK .HEAD AND UPPER BACK. TEARFUL DUE TO CURRENT RESULTS OF CT SCAN/X RAYS. VERBALIZING WHY THESE PROBLEMS ARE ALWAYS COMMING ON ME.REASSURANCES AND EMOTIONAL SUPPORT PROVIDED. WILL MONITOR CLOSELY. STILL WITH HAND TREMORS. DENIES CHEST PAIN NOR SOB. CALL LIGHT WITHIN REACH. BED IN LOW POSITION.
[2018-12-12 21:35] VITALS: BP_SYST 147
--- NOTE | 2018-12-12 21:35 | NUR ---
REFUSE BLOOD SUGAR CHECKS.
--- NOTE | 2018-12-12 21:50 | NUR ---
MEDS ADMIN: STATED PAIN MUCH BETTER. ALL DUE PO MEDS GIVEN INCLUDING ANXIETY MEDS .DENIES CHEST PAIN NOR SOB. VOIDED IN THE BATHROOM. TREMORS PRESENT ON BOTH HANDS.
--- NOTE | 2018-12-12 23:30 | NUR ---
VITAL SIGNS TAKEN, STABLE.VERY SLEEPY. WILL CONTINUE TO MONITOR FOR ANY DISTRESS.
[2018-12-13 00:59] VITALS: BP_SYST 120
--- NOTE | 2018-12-13 02:00 | NUR ---
SLEEPING SOUNDLY ,MOUTH BREATHER. SAT. 88-89%/ OXYGEN 2 LITERS PER N/C INITIATED.SAT UP TP 96%.
--- NOTE | 2018-12-13 03:30 | NUR ---
SEEN PATIENT STILL SLEEPING ,PT. MOVED O2 DOWN ON LIPS AREA.
[2018-12-13] MEDS: MORPHINE 4 MG/ML INJ. SYRINGE IVP PRN ×2 (05:35→10:28)
--- NOTE | 2018-12-13 05:35 | NUR ---
MEDICATED WITH MORPHINE 4MG IV FOR NECK PAIN .JUST CAME BACK FROM RESTROOM TO VOID. TEARFUL.
--- NOTE | 2018-12-13 06:50 | NUR ---
CLOSING: PATIENT SLEEPING THIS TIME. REFUSE BLOOD SUGAR CHECK EARLIER. ALL NEEDS WERE ATTENDED. NO ACUTE DISTRESS. SAFETY MEASURES IMPLEMENTED. WILL ENDORSE CARE TO AM RN.
--- NOTE | 2018-12-13 07:30 | NUR ---
Opening Note: Patient in bed resting. Patient denies pain and discomfort. Breathing is even and unlabored with no distress noted. IV patent and intact. Safety precautions in place; bed in lowest position, wheels locked, side rails x3, bed alarm activated and call light within reach. No needs at this time. Will continue to monitor.
[2018-12-13 08:02] VITALS: BP_SYST 129
[2018-12-13] MEDS: LORazepam 1 MG TABLET PO SCH ×2 (08:23→13:56)
[2018-12-13] MEDS: PANTOPRAZOLE SODIUM 40 MG TAB PO SCH (08:23)
[2018-12-13] MEDS: CARVEDILOL 6.25 MG TABLET (COREG) PO SCH (08:24)
[2018-12-13] MEDS: PARoxetine HCL 20 MG TABLET PO SCH (08:24)
[2018-12-13] MEDS: TOPIRAMATE 25 MG TABLET(TOPAMAX) PO SCH (08:24)
[2018-12-13] MEDS: busPIRone HCL 5 MG TABLET PO SCH (08:24)
--- NOTE | 2018-12-13 12:14 | NUR ---
Rounds: Patient eating lunch. No pain or discomfort. No distress noted. No anxiety noted. Morning medications tolerated well. Safety precautions in place and call light within reach. Will continue to monitor.
[2018-12-13] MEDS ORDERED: MORPHINE 4 MG/ML INJ. SYRINGE IVP ONE (12:45)
[2018-12-13 12:48] VITALS: BP_SYST 127
[2018-12-13 13:16] VITALS: BP_SYST 127
[2018-12-13] MEDS ORDERED: busPIRone HCL 5 MG TABLET PO SCH (15:00)
== END 2018-12-13 14:00 | disposition home or self-care (01) | DRG 313 ==
LOC: SED 09:41 → STU 12:47 → SMU 12-10 15:15
PROVIDERS: ADMIT Internal Medicine; ATTEND Internal Medicine
DX: R07.89 Other chest pain (principal); F41.9 Anxiety disorder, unspecified; I10 Essential (primary) hypertension; E66.9 Obesity, unspecified; D64.9 Anemia, unspecified; F32.9 Major depressive disorder, single episode, unspecified; I44.7 Left bundle-branch block, unspecified; G25.0 Essential tremor; Z96.641 Presence of right artificial hip joint; Z96.653 Presence of artificial knee joint, bilateral; M19.90 Unspecified osteoarthritis, unspecified site; F07.81 Postconcussional syndrome; Z88.1 Allergy status to other antibiotic agents; Z91.018 Allergy to other foods; Z87.81 Personal history of (healed) traumatic fracture; Z68.38 Body mass index [BMI] 38.0-38.9, adult; Z87.820 Personal history of traumatic brain injury; Z87.891 Personal history of nicotine dependence; Z90.710 Acquired absence of both cervix and uterus; Z91.81 History of falling
CPT/HCPCS: 36415; 70450-TC; 70480; 70551; 71045; 72125-TC; 80053; 80061; 81003; 83690-TC; 83735-TC; 83880; 84439; 84443-TC; 84484; 85025; 93005; 93306; 96361; 96374; 96375; 99291; G0378; J1815; J2060; J2270; J7030

== ENCOUNTER 2019-05-14 09:46 | Day surgery (SDC) | payer OTHER ==
[2019-05-12 10:30] LABS: BASOPHILS # (AUTO) 0.1 K/uL (0.0-0.2); EOSINOPHILS # (AUTO) 0.3 K/uL (0.0-0.4); HEMATOCRIT 41.9 % (36-48); HEMOGLOBIN 14.4 g/dL (12.0-16.0); LYMPHOCYTES # (AUTO) 2.3 K/uL (1.0-5.5); LYMPHOCYTES % (AUTO) 26.5 % (20.5-51.5); MEAN CORPUSCULAR HEMOGLOBIN 32 pg (27-31); MEAN CORPUSCULAR HGB CONC 34 % (32-36); MEAN CORPUSCULAR VOLUME 94 fL (79.0-98.0); MONOCYTES # (AUTO) 0.5 K/uL (0.0-1.0); MONOCYTES % (AUTO) 5.5 % (1.7-9.3); NEUTROPHILS # (AUTO) 5.5 K/uL (1.8-7.7); PLATELET COUNT (AUTO) 307 K/uL (130-430); RED BLOOD CELL COUNT(AUTO) 4.46 MIL/uL (4.2-6.2); RED CELL DISTRIBUTION WIDTH 13.6 % (9.0-15.0); WHITE BLOOD COUNT (AUTO) 8.6 K/uL (4.8-10.8)
[2019-05-12 10:53] LABS: BILIRUBIN,URINE NEGATIVE (NEGATIVE); BLOOD, URINE NEGATIVE (NEGATIVE); CLARITY/URINE CLEAR (CLEAR); COLOR,URINE YELLOW (YELLOW); GLUCOSE,URINE NEGATIVE (NEGATIVE); KETONES,URINE NEGATIVE (NEGATIVE); LEUKOCYTE ESTERASE ,URINE NEGATIVE (NEGATIVE); NITRITE, URINE NEGATIVE (NEGATIVE); PROTEIN URINE NEGATIVE (NEGATIVE); UROBILINOGEN,URINE 0.2 (0.2-1.0)
[~2019-05-14] VITALS: Ht 166.4 cm; Wt 107.0 kg
[2019-05-14] MEDS: MIDAZOLAM HCL 5 MG/5 ML VIAL ONE ×2 (10:40→10:55)
[2019-05-14] MEDS ORDERED: MEPERIDINE HCL/PF 100 MG/ML AMP ONE (10:48)
[2019-05-14] MEDS ORDERED: SEVOFLURANE 15 MIN GAS INH ONE (11:05)
[2019-05-14] MEDS ORDERED: PROPOFOL 200MG/ 20ML VIAL (DIPRIVAN) IV ONE (11:05)
[2019-05-14] MEDS ORDERED: LR 500 ML IV.SOLN IV ONE (11:05)
[2019-05-14] MEDS ORDERED: ONDANSETRON HCL 4 MG/2 ML VIAL IVP ONE (11:05)
[2019-05-14] MEDS ORDERED: BUPIVACAINE /EPINEPHRINE/PF 0.5% 30 ML VIAL INJ ONE (11:05)
[2019-05-14] MEDS ORDERED: fentaNYL CITRATE/PF 100 MCG/2 ML AMP IVP ONE (11:05)
[2019-05-14] MEDS ORDERED: NS IRRIG SOLN 1000 ML IR ONE (11:05)
[2019-05-14] MEDS ORDERED: ONDANSETRON HCL 4 MG/2 ML VIAL IVP PRN (11:45)
[2019-05-14 13:24] VITALS: BP_SYST 135
== END 2019-05-14 14:40 | disposition home or self-care (01) ==
LOC: SDS 09:46 → SMU 09:48 → SDS 14:40
PROVIDERS: ATTEND Specialist
DX: N90.89 Other specified noninflammatory disorders of vulva and perineum (principal); N90.4 Leukoplakia of vulva; I10 Essential (primary) hypertension; E66.01 Morbid (severe) obesity due to excess calories; K21.9 Gastro-esophageal reflux disease without esophagitis; G62.9 Polyneuropathy, unspecified; F41.9 Anxiety disorder, unspecified; M19.90 Unspecified osteoarthritis, unspecified site
CPT/HCPCS: 11421 ×3; 36415; 81003; 84703; 85025; 88305; 88361; 93005; J2175; J2250; J2405; J2704; J3010; J3490; J7120; 88341; 88342

== ENCOUNTER 2019-07-06 08:45 | Outpatient (CLI) | payer OTHER ==
[2019-07-06 14:04] LABS: HEMOGLOBIN 13.7 g/dL (12.0-16.0); RED BLOOD CELL COUNT(AUTO) 4.26 MIL/uL (4.2-6.2); WHITE BLOOD COUNT (AUTO) 6.9 K/uL (4.8-10.8)
[2019-07-06 14:05] LABS: BASOPHILS % (AUTO) 0.6 % (0.0-2.0); EOSINOPHILS % (AUTO) 2.2 % (0.0-4.0); HEMATOCRIT 40.7 % (36-48); LYMPHOCYTES # (AUTO) 1.9 K/uL (1.0-5.5); LYMPHOCYTES % (AUTO) 27.2 % (20.5-51.5); MEAN CORPUSCULAR HEMOGLOBIN 32 pg (27-31); MEAN CORPUSCULAR HGB CONC 34 % (32-36); MEAN CORPUSCULAR VOLUME 96 fL (79.0-98.0); MONOCYTES % (AUTO) 7.4 % (1.7-9.3); NEUTROPHILS # (AUTO) 4.3 K/uL (1.8-7.7); NEUTROPHILS % (AUTO) 62.6 % (40.0-70.0); PLATELET COUNT (AUTO) 263 K/uL (130-430)
[2019-07-06 14:06] LABS: EOSINOPHILS # (AUTO) 0.2 K/uL (0.0-0.4); MONOCYTES # (AUTO) 0.5 K/uL (0.0-1.0)
[2019-07-06 14:14] LABS: INR 0.9 (0.8-1.2); PROTHROMBIN TIME 9.3 SECS (9.5-12.5)
[2019-07-06 14:27] LABS: POTASSIUM 4.2 mmol/L (3.5-5.1)
[2019-07-06 14:28] LABS: CALCIUM 8.7 mg/dL (8.4-11.0); CREATININE 0.89 mg/dL (0.55-1.30)
[2019-07-06 14:29] LABS: ALBUMIN 3.3 g/dL (3.4-4.8); TOTAL BILIRUBIN 0.2 mg/dL (0.0-1.0)
== END 2019-07-06 21:18 | disposition home or self-care (01) ==
LOC: SLB 08:45
PROVIDERS: ATTEND Internal Medicine
DX: Z01.812 Encounter for preprocedural laboratory examination (principal)
CPT/HCPCS: 36415; 80053; 85025; 85610-TC; 85730-TC

== ENCOUNTER 2019-11-24 08:49 | Outpatient (CLI) | payer OTHER | END 2019-11-24 21:05 | disposition home or self-care (01) | LOC: SMA 08:49 | PROVIDERS: ATTEND Internal Medicine | DX: N64.89 Other specified disorders of breast (principal); N60.01 Solitary cyst of right breast | CPT/HCPCS: 76642; 77066 ==

== ENCOUNTER 2019-11-30 10:20 | Outpatient (CLI) | payer OTHER ==
[2019-11-30 11:02] LABS: BASOPHILS # (AUTO) 0.1 K/uL (0.0-0.2); BASOPHILS % (AUTO) 0.8 % (0.0-2.0); EOSINOPHILS # (AUTO) 0.2 K/uL (0.0-0.4); EOSINOPHILS % (AUTO) 2.3 % (0.0-4.0); HEMATOCRIT 43.4 % (36-48); HEMOGLOBIN 14.6 g/dL (12.0-16.0); LYMPHOCYTES # (AUTO) 2.1 K/uL (1.0-5.5); LYMPHOCYTES % (AUTO) 30.2 % (20.5-51.5); MEAN CORPUSCULAR HEMOGLOBIN 31 pg (27-31); MEAN CORPUSCULAR HGB CONC 34 % (32-36); MEAN CORPUSCULAR VOLUME 91 fL (79.0-98.0); MONOCYTES # (AUTO) 0.5 K/uL (0.0-1.0); MONOCYTES % (AUTO) 6.6 % (1.7-9.3); NEUTROPHILS # (AUTO) 4.2 K/uL (1.8-7.7); NEUTROPHILS % (AUTO) 60.1 % (40.0-70.0); PLATELET COUNT (AUTO) 329 K/uL (130-430); RED BLOOD CELL COUNT(AUTO) 4.76 MIL/uL (4.2-6.2); RED CELL DISTRIBUTION WIDTH 12.9 % (9.0-15.0)
[2019-11-30 11:18] LABS: ALBUMIN 3.6 g/dL (3.4-4.8); C-REACTIVE PROTEIN QUANT 1.7 mg/dL (0-0.5); CALCIUM 9.1 mg/dL (8.4-11.0); CREATININE 1.19 mg/dL (0.55-1.30); THYROID STIMULATING HORMONE 3.76 uIu/mL (0.34-4.82); TOTAL BILIRUBIN 0.4 mg/dL (0.0-1.0); URIC ACID 7.4 mg/dL (2.4-7.0)
[2019-11-30 11:51] LABS: ERYTHROCYTE SEDIMENTATION RATE 16 MM/HR (0-20)
[2019-12-02 11:32] LABS: HEMOGLOBIN A1C 6.5 % (4.8-5.6)
== END 2019-11-30 20:47 | disposition home or self-care (01) ==
LOC: SUS 10:20
PROVIDERS: ATTEND Internal Medicine
DX: N60.02 Solitary cyst of left breast (principal); R59.1 Generalized enlarged lymph nodes; I10 Essential (primary) hypertension; E66.3 Overweight; F41.1 Generalized anxiety disorder; R73.9 Hyperglycemia, unspecified
CPT/HCPCS: 36415; 76642; 80053; 80061; 82306; 82607; 83036; 84443-TC; 84550-TC; 85025; 85651-TC; 86140

== ENCOUNTER 2019-12-10 13:02 | Outpatient (CLI) | payer OTHER | END 2019-12-10 14:00 | disposition home or self-care (01) | LOC: SUS 13:02 | PROVIDERS: ATTEND Internal Medicine | DX: R22.32 Localized swelling, mass and lump, left upper limb (principal) ==

== ENCOUNTER 2020-09-13 13:00 | Outpatient (CLI) | payer OTHER ==
[~2020-09-13 13:00] MED LIST changes: +PROP60CA40 PO; -PROP60CA6 PO
[2020-09-13 13:36] LABS: BASOPHILS # (AUTO) 0.1 K/uL (0.0-0.2); BASOPHILS % (AUTO) 0.8 % (0.0-2.0); EOSINOPHILS # (AUTO) 0.2 K/uL (0.0-0.4); EOSINOPHILS % (AUTO) 2.1 % (0.0-4.0); HEMATOCRIT 40.4 % (36-48); HEMOGLOBIN 13.4 g/dL (12.0-16.0); LYMPHOCYTES # (AUTO) 2.1 K/uL (1.0-5.5); LYMPHOCYTES % (AUTO) 28.5 % (20.5-51.5); MEAN CORPUSCULAR HEMOGLOBIN 30 pg (27-31); MEAN CORPUSCULAR HGB CONC 33 % (32-36); MEAN CORPUSCULAR VOLUME 89 fL (79.0-98.0); MONOCYTES # (AUTO) 0.6 K/uL (0.0-1.0); MONOCYTES % (AUTO) 8.4 % (1.7-9.3); NEUTROPHILS # (AUTO) 4.5 K/uL (1.8-7.7); NEUTROPHILS % (AUTO) 60.2 % (40.0-70.0); PLATELET COUNT (AUTO) 314 K/uL (130-430); RED BLOOD CELL COUNT(AUTO) 4.53 MIL/uL (4.2-6.2); RED CELL DISTRIBUTION WIDTH 15.5 % (9.0-15.0); WHITE BLOOD COUNT (AUTO) 7.4 K/uL (4.8-10.8)
[2020-09-13 13:53] LABS: ALBUMIN 3.3 g/dL (3.4-4.8); C-REACTIVE PROTEIN QUANT 1.3 mg/dL (0-0.5); CALCIUM 8.8 mg/dL (8.4-11.0); CREATININE 1.09 mg/dL (0.55-1.30); POTASSIUM 4.1 mmol/L (3.5-5.1); THYROID STIMULATING HORMONE 2.29 uIu/mL (0.34-4.82); TOTAL BILIRUBIN 0.2 mg/dL (0.0-1.0)
[2020-09-13 14:20] LABS: ERYTHROCYTE SEDIMENTATION RATE 27 MM/HR (0-20)
== END 2020-09-13 20:29 | disposition home or self-care (01) ==
LOC: SMA 13:00
PROVIDERS: ATTEND Internal Medicine
DX: Z01.812 Encounter for preprocedural laboratory examination (principal); K57.30 Diverticulosis of large intestine without perforation or abscess without bleeding; R92.2 Inconclusive mammogram; N64.89 Other specified disorders of breast; Z96.641 Presence of right artificial hip joint
CPT/HCPCS: 36415; 71270; 74178; 76376; 77066; 80053; 83036; 84443; 84550; 85025; 85651; 86140; Q9967

== ENCOUNTER 2020-10-25 06:15 | Day surgery (SDC) | payer OTHER, SELFPAY ==
[2020-10-20 14:51] LABS: BASOPHILS % (AUTO) 0.6 % (0.0-2.0); EOSINOPHILS # (AUTO) 0.2 K/uL (0.0-0.4); EOSINOPHILS % (AUTO) 2.1 % (0.0-4.0); HEMATOCRIT 40.8 % (36-48); HEMOGLOBIN 13.6 g/dL (12.0-16.0); LYMPHOCYTES # (AUTO) 2.4 K/uL (1.0-5.5); LYMPHOCYTES % (AUTO) 31.7 % (20.5-51.5); MEAN CORPUSCULAR HEMOGLOBIN 30 pg (27-31); MEAN CORPUSCULAR HGB CONC 34 % (32-36); MEAN CORPUSCULAR VOLUME 89 fL (79.0-98.0); MONOCYTES # (AUTO) 0.5 K/uL (0.0-1.0); MONOCYTES % (AUTO) 6.5 % (1.7-9.3); NEUTROPHILS # (AUTO) 4.4 K/uL (1.8-7.7); NEUTROPHILS % (AUTO) 59.1 % (40.0-70.0); PLATELET COUNT (AUTO) 301 K/uL (130-430); RED BLOOD CELL COUNT(AUTO) 4.58 MIL/uL (4.2-6.2); WHITE BLOOD COUNT (AUTO) 7.4 K/uL (4.8-10.8)
[2020-10-20 15:08] LABS: PROTHROMBIN TIME 9.9 SECS (9.5-12.5)
[2020-10-20 15:09] LABS: ALBUMIN 3.5 g/dL (3.4-4.8); CALCIUM 8.7 mg/dL (8.4-11.0); CREATININE 1.12 mg/dL (0.55-1.30); POTASSIUM 4.6 mmol/L (3.5-5.1); TOTAL BILIRUBIN 0.3 mg/dL (0.0-1.0)
[~2020-10-25] VITALS: Ht 165.1 cm; Wt 102.1 kg
[2020-10-25] MEDS ORDERED: ONDANSETRON HCL 4 MG/2 ML VIAL IVP ONE (07:45)
[2020-10-25] MEDS ORDERED: LR 1,000 ML IV.SOLN IV ONE (07:45)
[2020-10-25] MEDS ORDERED: CEFAZOLIN 2 GM IVPB PREMIX 50 ML IV ONE (07:45)
[2020-10-25] MEDS ORDERED: PROPOFOL 200MG/ 20ML VIAL (DIPRIVAN) IV ONE (07:45)
[2020-10-25] MEDS ORDERED: BUPIVACAINE /EPINEPHRINE/PF 0.25% 30 ML VIAL INJ ONE (07:45)
[2020-10-25] MEDS ORDERED: SEVOFLURANE 15 MIN GAS INH ONE (07:45)
[2020-10-25] MEDS ORDERED: fentaNYL CITRATE/PF 100 MCG/2 ML AMP IVP PRN ×2 (08:45)
[2020-10-25] MEDS ORDERED: ONDANSETRON HCL 4 MG/2 ML VIAL IVP PRN ×2 (08:45→09:30)
[2020-10-25] MEDS ORDERED: HYDROmorphone 1 MG/ML INJ. CARTRIDGE IVP PRN (09:30)
[2020-10-25] MEDS ORDERED: ACETAMINOPHEN 325 MG TABLET PO PRN (09:30)
[2020-10-25] MEDS ORDERED: fentaNYL CITRATE/PF 100 MCG/2 ML AMP ONE (09:33)
[2020-10-25] MEDS ORDERED: HYDROmorphone 1 MG/ML INJ. CARTRIDGE ONE (10:36)
[2020-10-25] MEDS ORDERED: HYDROmorphone 1 MG/ML INJ. CARTRIDGE IVP ONE (11:00)
[2020-10-25 12:04] VITALS: BP_SYST 132
== END 2020-10-25 11:40 | disposition home or self-care (01) ==
LOC: SDS 06:15 → SMU 06:15 → SDS 11:40
PROVIDERS: ATTEND Surgery
DX: D17.1 Benign lipomatous neoplasm of skin and subcutaneous tissue of trunk (principal); R22.9 Localized swelling, mass and lump, unspecified; I10 Essential (primary) hypertension; F41.9 Anxiety disorder, unspecified; E11.9 Type 2 diabetes mellitus without complications; Z20.822 Contact with and (suspected) exposure to COVID-19; Z79.01 Long term (current) use of anticoagulants; Z79.899 Other long term (current) drug therapy
CPT/HCPCS: 21930 ×2; 21931 ×2; 29131; 36415; 71046; 80053; 82962; 85025; 85610; 85730; 88304; 93005; J0690; J1170; J2405; J2704; J3010; J3490; J7120; U0003

== ENCOUNTER → 2021-06-04 | Outpatient (CLI) | payer OTHER ==
[2021-06-04 12:40] LABS: ALBUMIN 3.5 g/dL (3.4-4.8); CALCIUM 8.8 mg/dL (8.4-11.0); CREATININE 0.99 mg/dL (0.55-1.30); POTASSIUM 3.8 mmol/L (3.5-5.1); TOTAL BILIRUBIN 0.4 mg/dL (0.0-1.0)
[2021-06-04 12:44] LABS: BASOPHILS # (AUTO) 0.1 K/uL (0.0-0.2); BASOPHILS % (AUTO) 0.6 % (0.0-2.0); EOSINOPHILS # (AUTO) 0.2 K/uL (0.0-0.4); EOSINOPHILS % (AUTO) 1.7 % (0.0-4.0); HEMATOCRIT 43.6 % (36-48); LYMPHOCYTES # (AUTO) 2.9 K/uL (1.0-5.5); LYMPHOCYTES % (AUTO) 31.9 % (20.5-51.5); MEAN CORPUSCULAR HEMOGLOBIN 31 pg (27-31); MEAN CORPUSCULAR HGB CONC 34 % (32-36); MEAN CORPUSCULAR VOLUME 90 fL (79.0-98.0); MONOCYTES # (AUTO) 0.5 K/uL (0.0-1.0); MONOCYTES % (AUTO) 5.7 % (1.7-9.3); NEUTROPHILS # (AUTO) 5.4 K/uL (1.8-7.7); NEUTROPHILS % (AUTO) 60.1 % (40.0-70.0); PLATELET COUNT (AUTO) 342 K/uL (130-430); RED BLOOD CELL COUNT(AUTO) 4.86 MIL/uL (4.2-6.2); RED CELL DISTRIBUTION WIDTH 13.3 % (9.0-15.0)
[2021-06-04 12:58] LABS: INR 0.9 (0.8-1.2); PROTHROMBIN TIME 9.8 SECS (9.5-12.5)
== END | disposition home or self-care (01) ==
LOC: SCA 11:25
PROVIDERS: ATTEND Internal Medicine
DX: Z01.818 Encounter for other preprocedural examination (principal)
CPT/HCPCS: 36415; 71046-TC; 80053; 83036; 85025; 85610-TC; 85730-TC; 93005

== ENCOUNTER 2021-09-21 13:48 | Outpatient (CLI) | payer OTHER | END 2021-09-21 19:41 | disposition home or self-care (01) | LOC: SCT 13:48 | DX: R22.0 Localized swelling, mass and lump, head (principal); J34.2 Deviated nasal septum | CPT/HCPCS: 70486-TC; 76376 ==

== ENCOUNTER 2021-10-26 11:19 | Inpatient (IN) | payer OTHER ==
[~2021-10-26] VITALS: Ht 165.1 cm; Wt 89.8 kg
--- NOTE | 2021-10-26 12:05 | NUR ---
Patient to ER bed 8 to gown for evaluation. Side rails up. Report given to Margarita ALVARENGA.
[2021-10-26 12:06] VITALS: BP_SYST 139
[2021-10-26] MEDS ORDERED: LORazepam 1 MG TABLET PO ONE (12:15)
--- NOTE | 2021-10-26 12:41 | NUR ---
Pt present to ED accompanied by with complaint of MARTINEZ and anxiety. hx of anxiety and panic attack. AOx4 GCS 15. at bedside. ED physician seen pt at bedside
[2021-10-26] MEDS ORDERED: LORazepam 2 MG/ML VIAL IM ONE ×2 (13:00→13:15)
[2021-10-26 15:41] LABS: BASOPHILS % (AUTO) 0.5 % (0.0-2.0); EOSINOPHILS # (AUTO) 0.2 K/uL (0.0-0.4); EOSINOPHILS % (AUTO) 2.8 % (0.0-4.0); HEMATOCRIT 40.1 % (36-48); HEMOGLOBIN 13.8 g/dL (12.0-16.0); LYMPHOCYTES # (AUTO) 2.7 K/uL (1.0-5.5); LYMPHOCYTES % (AUTO) 34.3 % (20.5-51.5); MEAN CORPUSCULAR HEMOGLOBIN 31 pg (27-31); MEAN CORPUSCULAR HGB CONC 35 % (32-36); MEAN CORPUSCULAR VOLUME 91 fL (79.0-98.0); MONOCYTES # (AUTO) 0.5 K/uL (0.0-1.0); MONOCYTES % (AUTO) 6.8 % (1.7-9.3); NEUTROPHILS # (AUTO) 4.4 K/uL (1.8-7.7); NEUTROPHILS % (AUTO) 55.6 % (40.0-70.0); PLATELET COUNT (AUTO) 301 K/uL (130-430); RED BLOOD CELL COUNT(AUTO) 4.43 MIL/uL (4.2-6.2); RED CELL DISTRIBUTION WIDTH 14.5 % (9.0-15.0); WHITE BLOOD COUNT (AUTO) 7.8 K/uL (4.8-10.8)
[2021-10-26 15:52] LABS: CALCIUM 8.3 mg/dL (8.4-11.0); CREATININE 1.1 mg/dL (0.55-1.30); POTASSIUM 3.4 mmol/L (3.5-5.1)
[2021-10-26 15:57] LABS: ALBUMIN 3.1 g/dL (3.4-4.8); TOTAL BILIRUBIN 0.2 mg/dL (0.0-1.0)
[2021-10-26] MEDS ORDERED: LORazepam 2 MG/ML VIAL IVP ONE (16:00)
[2021-10-26] MEDS ORDERED: DEXTROSE 50% JECT 50 ML DISP.SYRIN IVP PRN (17:30)
[2021-10-26] MEDS ORDERED: INSULIN REGULAR, HUMAN 100 UNITS/ML, 10 ML VIAL (humuLIN R) SUBCUT PRN (17:30)
[2021-10-26] MEDS ORDERED: POTASSIUM CHLORIDE 20 MEQ TAB.PRT.SR PO ONE (17:30)
[2021-10-26] MEDS ORDERED: FAMOTIDINE 20 MG TABLET PO ONE (17:45)
--- NOTE | 2021-10-26 19:10 | NUR ---
Report rec from Howie ALVARENGA.
[2021-10-26] MEDS ORDERED: cloNIDine HCL 0.1 MG TABLET PO PRN (19:30)
[2021-10-26] MEDS: LORazepam 2 MG/ML VIAL IVP PRN (20:09)
[2021-10-26 20:19] LABS: BILIRUBIN,URINE NEGATIVE (NEGATIVE); BLOOD, URINE NEGATIVE (NEGATIVE); CLARITY/URINE CLEAR (CLEAR); COLOR,URINE YELLOW (YELLOW); GLUCOSE,URINE NEGATIVE (NEGATIVE); KETONES,URINE TRACE (NEGATIVE); LEUKOCYTE ESTERASE ,URINE NEGATIVE (NEGATIVE); NITRITE, URINE NEGATIVE (NEGATIVE); PH,URINE 5.5 (5.0-8.0); PROTEIN URINE NEGATIVE (NEGATIVE); UROBILINOGEN,URINE 0.2 (0.2-1.0)
[2021-10-26] MEDS ORDERED: TRAZ-250 PO (20:29)
[2021-10-26] MEDS ORDERED: BUSP10TA3 PO (20:29)
[2021-10-26] MEDS ORDERED: HYDR25TA4 PO (20:29)
[2021-10-26] MEDS ORDERED: LORA-259 PO (20:29)
[2021-10-26] MEDS ORDERED: METF-518 PO (20:29)
[2021-10-26] MEDS ORDERED: TOP25 PO (20:29)
[2021-10-26] MEDS ORDERED: PRO40 PO (20:29)
[2021-10-26] MEDS ORDERED: PARO40TA PO (20:29)
[2021-10-26] MEDS ORDERED: CARV6.2554 PO (20:29)
--- NOTE | 2021-10-26 21:05 | NUR ---
ADMISSION NOTES; -Pt arrived from ED dept to RM 110-B. Pt is a/ox4, denies any chest pain,pain,sob,or any acute distress. Pt stated that she was anxious earlier in ER dept b/c waiting too long to be admit to the floor. Ayush-spouse is at bedside. VS 146/90,74,97.8,20,y8ccr=04% r/a. Pt weighed 200 lbs on build scale, but she doesn't want to document this number. She stated," I weighed myself this morning, it was 198lbs and put this weight only." IV site of left f/a patent after flushed w/ NS, no s/s any infiltration noted. Discussed & educated of poc and pain mgmt, and instructed pt to use call light if experiencing any pain, anxiety,or if needs any assistance or to get OOB to use call light for assistance, pt verbalized understanding. Call light w/in reach, side rails x2. Cont to monitor pt.
--- NOTE | 2021-10-26 21:09 | NUR ---
Patient will be admitted to care of Dr. Andrews. Admitted to med surg unit. Will go to room 110B. Belongings list completed. Complete and up to date summary report printed. SBAR repor given to Christie ALVARENGA at bedside with opportunity for questions.
[2021-10-26 21:25] VITALS: BP_SYST 146
[2021-10-26 21:42] VITALS: BP_SYST 146
[2021-10-26] MEDS: FAMOTIDINE 20 MG TABLET PO SCH (22:00)
[2021-10-26] MEDS: TEMAZEPAM 15 MG CAPSULE PO SCH (22:00)
--- NOTE | 2021-10-26 23:15 | NUR ---
ROUNDS; -Pt is asleep. NO s/s any pain,chest pain,sob,or any acute distress noted. All safety measures in place,side rails x2,call light w/in reach. cont to monitor pt.
[2021-10-27 00:18] VITALS: BP_SYST 116
[2021-10-27] MEDS: LORazepam 2 MG/ML VIAL IVP PRN ×5 (00:18→20:46)
--- NOTE | 2021-10-27 00:18 | NUR ---
ROUNDS; -Pt is anxious,gave Ativan 1mg IVP upon pt's request. Instructed to use call light whenever needs to get OOB, pt verbalized understanding. Fall precaution in place, side rails x2. Call light w/in reach. Cont to monitor pt.
--- NOTE | 2021-10-27 02:40 | NUR ---
ROUNDS; -Pt is asleep in bed comfortably. No s/s any pain,sob,or any acute distress noted. Call light w/in reach, side rails x2. Fall precaution in place.Pt's condition stable. Cont to monitor pt.
--- NOTE | 2021-10-27 04:15 | NUR ---
ROUNDS; -Pt is asleep comfortably in bed. No s/s any pain,sob,or any acute distress noted. Call light w/in reach, side rails x2. Fall precaution in place.Pt's condition stable. Cont to monitor pt.
--- NOTE | 2021-10-27 05:32 | NUR ---
CONSULTATION PAGED/CALLED Reason for Consultation: ABD PAIN Person Who was Notified: MANOLO Consulting Physician: DR.TRUONG BUSBY FOR Configuration Management Advisor Specialty: Ordering Physician:
--- NOTE | 2021-10-27 06:00 | NUR ---
ROUNDS; -Pt is anxious,gave Ativan 1mg IVP upon pt's request. Fall precaution in place, side rails x2. Call light w/in reach. Cont to monitor pt.
--- NOTE | 2021-10-27 06:05 | NUR ---
BLOOD TDWUC=[id number], NO SSI COVERAGE
[2021-10-27 07:05] LABS: BASOPHILS % (AUTO) 0.6 % (0.0-2.0); EOSINOPHILS # (AUTO) 0.2 K/uL (0.0-0.4); EOSINOPHILS % (AUTO) 2.7 % (0.0-4.0); HEMATOCRIT 38.3 % (36-48); HEMOGLOBIN 13.3 g/dL (12.0-16.0); LYMPHOCYTES # (AUTO) 2.5 K/uL (1.0-5.5); LYMPHOCYTES % (AUTO) 41.2 % (20.5-51.5); MEAN CORPUSCULAR HEMOGLOBIN 31 pg (27-31); MEAN CORPUSCULAR HGB CONC 35 % (32-36); MEAN CORPUSCULAR VOLUME 91 fL (79.0-98.0); MONOCYTES # (AUTO) 0.5 K/uL (0.0-1.0); MONOCYTES % (AUTO) 7.9 % (1.7-9.3); NEUTROPHILS # (AUTO) 2.9 K/uL (1.8-7.7); NEUTROPHILS % (AUTO) 47.6 % (40.0-70.0); PLATELET COUNT (AUTO) 282 K/uL (130-430); RED BLOOD CELL COUNT(AUTO) 4.23 MIL/uL (4.2-6.2); RED CELL DISTRIBUTION WIDTH 14.6 % (9.0-15.0); WHITE BLOOD COUNT (AUTO) 6.1 K/uL (4.8-10.8)
[2021-10-27] MEDS ORDERED: METF-379 PO (07:21)
--- NOTE | 2021-10-27 07:40 | NUR ---
Initial notes Sleepy, arousable. denies any abdominal pain at this time. No distress. vital signs stable. Enc to call for help as needed.
[2021-10-27 07:54] LABS: ALBUMIN 2.9 g/dL (3.4-4.8); C-REACTIVE PROTEIN QUANT 0.8 mg/dL (0-0.5); CALCIUM 8.3 mg/dL (8.4-11.0); CREATININE 1.11 mg/dL (0.55-1.30); POTASSIUM 3.6 mmol/L (3.5-5.1); THYROID STIMULATING HORMONE 1.81 uIu/mL (0.36-3.74); TOTAL BILIRUBIN 0.3 mg/dL (0.0-1.0)
[2021-10-27 08:08] VITALS: BP_SYST 136
[2021-10-27] MEDS: FAMOTIDINE 20 MG TABLET PO SCH ×2 (08:51→21:08)
[2021-10-27 09:01] LABS: ERYTHROCYTE SEDIMENTATION RATE 26 MM/HR (0-20)
[2021-10-27] MEDS ORDERED: CARVEDILOL 6.25 MG TABLET (COREG) PO ONE (09:15)
[2021-10-27] MEDS ORDERED: PARoxetine HCL 20 MG TABLET PO ONE (09:15)
[2021-10-27] MEDS ORDERED: HYDROCHLOROTHIAZIDE 25 MG TABLET (HCTZ) PO ONE (09:15)
[2021-10-27] MEDS ORDERED: busPIRone HCL 5 MG TABLET PO ONE (09:15)
[2021-10-27] MEDS ORDERED: TOPIRAMATE 25 MG TABLET(TOPAMAX) PO ONE (09:15)
[2021-10-27] MEDS ORDERED: metFORMIN HCL 500 MG TABLET PO ONE (09:15)
[2021-10-27] MEDS: DICYCLOMINE HCL 10 MG CAPSULE PO SCH ×2 (09:58→21:09)
[2021-10-27] MEDS ORDERED: BISACODYL 10 MG/SUPPOSITORY RC PRN (11:15)
[2021-10-27] MEDS ORDERED: BISACODYL 5 MG TABLET.DR (DULCOLAX) PO PRN (11:15)
[2021-10-27] MEDS ORDERED: DOCUSATE SODIUM 250 MG CAPSULE PO ONE (11:30)
--- NOTE | 2021-10-27 12:03 | NUR ---
notes Keep NPO for abdominal ultrasound
--- NOTE | 2021-10-27 14:06 | NUR ---
Notes Patient sleeping, breathing even and unlabored. No distress.
--- NOTE | 2021-10-27 15:00 | NUR ---
MD rounds Dr. Rodriguez (neurologidt) at bedside talking to the patient.
[2021-10-27 15:30] VITALS: BP_SYST 157
[2021-10-27 16:31] VITALS: BP_SYST 131
--- NOTE | 2021-10-27 18:15 | NUR ---
Notes/meds Patient does want her ativan to be shortened to every 3 hours. called and spoke to Dr. Andrews and stated that its too much if its every 3 hours. MD ordered to keep it every 4/hrs as needed. informed patient and family.
[2021-10-27 19:38] VITALS: BP_SYST 140
--- NOTE | 2021-10-27 20:18 | NUR ---
2015 pt in bed, aaox4, vss, call lpight in reach. Attempt to go over pt. meds, when pt became irate and accused nurse of attitude. Asked if she wanted a new nurse, pt. requesting to speak to charge nurse, will notify charge nurse.
--- NOTE | 2021-10-27 20:24 | NUR ---
2020 Offered her ativan, she refused and stated she wanted a new nurse and to talk to charge nurse, charge nurse is aware.
--- NOTE | 2021-10-27 20:42 | NUR ---
2041 Report given to LYLE bernal
[2021-10-27] MEDS: CARVEDILOL 6.25 MG TABLET (COREG) PO SCH (21:08)
[2021-10-27] MEDS: DOCUSATE SODIUM 250 MG CAPSULE PO SCH (21:09)
[2021-10-27] MEDS: traZODone HCL 50 MG TABLET (DESYREL) PO SCH (21:09)
[2021-10-27] MEDS: metFORMIN HCL 500 MG TABLET PO SCH (21:09)
[2021-10-27] MEDS: busPIRone HCL 5 MG TABLET PO SCH (21:10)
[2021-10-27] MEDS: TOPIRAMATE 25 MG TABLET(TOPAMAX) PO SCH (21:10)
[2021-10-27] MEDS: TEMAZEPAM 15 MG CAPSULE PO SCH (22:34)
--- NOTE | 2021-10-27 22:50 | NUR ---
NEW IV: PRIMARY RN REQUESTED TO START A NEW IV SINCE IV IS LEAKING , WENT AND EXPLAINED THE PROCEDURE TO THE PT ; STARTED NEW IV TO THE LEFT HAND 22G X1 ATTEMPT ,GOOD BLOOD RETURN NOTICED , IV FLUSHED WELL , PT STATED SHE IS OK WITH THE TEGADERM BUT ALLERGIC TO REGULAR TAPE , SO USED PAPER TAPE FIX . REMOVED PREVIOUS IV CATH , CATH TIP IS INTACT . NO ACTIVE BLEEDING NOTICED ,APPLIED DRESSING . PRIMARY RN MADE AWARE .
--- NOTE | 2021-10-27 23:05 | NUR ---
LATE ENTRY 2029- 2045 : PRIMARY RN CAME AND TOLD ME THAT PT IS ASKING CHARGE NURSE TO GO AND TALK TO HER AND REQUESTING FOR A NEW NURSE . WENT TO THE PT ROOM AND TALKED WITH THE PT , PT STATED " I HAVE REALLY BAD DEPRESSION , PANIC ATTACK AND TREMORS NOW ; I AM DUE FOR MY ATIVAN 20 MIN EARLIER , THE NURSE CAME EARLIER SHE CHECKED MY VITAL SIGNS AND SAID SHE WILL CHECK MY MEDICATION AND SHE NEVER CAME BACK ; SHE IS HAVING AN ATTITUDE ,IF SHE DOESNT KNOW HOW TO TAKE CARE OF PTS LIKE ME SHE SHOULD NOT TAKE CARE CARE OF ME , I DONT WANT TO SEE HER FACE AGAIN , I NEED A NEW NURSE WHO UNDERSTAND ME AND MY PROBLEMS" . I APOLOGIZED FOR WHAT HAPPENED; INFORMED HER THAT I WILL CHANGE HER PRIMARY NURSE . PRIMARY RN CHANGED PER PTS REQUEST . WENT AND GIVEN ATIVAN PER ORDER SINCE PRIMARY RN IS BUSY .
[2021-10-28 01:00] VITALS: BP_SYST 139
--- NOTE | 2021-10-28 01:20 | NUR ---
Rounds/Ativan Pt just ambulated from the bathroom and voided, stead gait. Pt requested for Ativan. VSS. Ativan 1mg IVP administered L. hand 22G. Clear and patent. Encouraged pt to call for assistance, pt verbalized understanding. Call light within reach. To monitor.
[2021-10-28] MEDS: LORazepam 2 MG/ML VIAL IVP PRN ×4 (01:21→18:31)
--- NOTE | 2021-10-28 07:00 | NUR ---
Closing notes Pt asleep, easily awakens, no s/s distress noted. No c/o pain. Blood sugar checked 110. Pt requested Ativan. Medicated with Ativan 1mg slow IVP as needed L. FA 22G clear and patent. Call light within reach. Safety maintained. To endorse to AM nurse.
[2021-10-28 08:00] VITALS: BP_SYST 104
[2021-10-28] MEDS: metFORMIN HCL 500 MG TABLET PO SCH ×2 (09:00→22:02)
[2021-10-28] MEDS: DICYCLOMINE HCL 10 MG CAPSULE PO SCH ×2 (09:37→21:23)
[2021-10-28] MEDS: TOPIRAMATE 25 MG TABLET(TOPAMAX) PO SCH ×2 (09:38→21:22)
[2021-10-28] MEDS: HYDROCHLOROTHIAZIDE 25 MG TABLET (HCTZ) PO SCH (09:39)
[2021-10-28] MEDS: PARoxetine HCL 20 MG TABLET PO SCH (09:39)
[2021-10-28] MEDS: DOCUSATE SODIUM 250 MG CAPSULE PO SCH ×2 (10:00→21:23)
--- NOTE | 2021-10-28 12:56 | NUR ---
Patient off floor at this time to have a hida scan done. Patient is alert and talkative. Respirations even et unlabored. No s/s acute distress noted.
[2021-10-28 14:00] VITALS: BP_SYST 154
[2021-10-28] MEDS: busPIRone HCL 5 MG TABLET PO SCH ×2 (14:07→21:25)
[2021-10-28] MEDS: CARVEDILOL 6.25 MG TABLET (COREG) PO SCH ×2 (14:10→21:24)
[2021-10-28] MEDS: FAMOTIDINE 20 MG TABLET PO SCH ×2 (14:10→21:23)
--- NOTE | 2021-10-28 19:00 | NUR ---
PT IS RESTING QUIETLY AT THIS TIME. PT'S SPOUSE IS PRESENT AT BEDSIDE. MEDICATED PRN TODAY WITH I ATIVAN FOR C/O INCREASED ANXIETY. RESPIRATIONS EVEN ET UNLABORED. NO S/S ACUTE DISTRESS NOTED. PT HAS NOTED TREMORS WHEN AWAKE- THE RIGHT SIDE IS WORSE THAN THE LEFT. PT STATED THAT THIS IS BASELINE FOR HER. NO CHANGE IN CONDITION NOTED.
--- NOTE | 2021-10-28 19:30 | NUR ---
at bedside Dr. Andrews at bedside speaking with pt and pt's spouse re weaning her off of Ativan.
--- NOTE | 2021-10-28 20:34 | NUR ---
CONSULTATION PAGED/CALLED Reason for Consultation: MASS IN THE RIGHT BUTTOCK AREA Person Who was Notified: MANOLO Consulting Physician: TAYLER Environmental Services Manager Specialty: [ Ordering Physician: TUNDE
[2021-10-28 20:50] VITALS: BP_SYST 133
[2021-10-28] MEDS: MAGNESIUM OXIDE 400 MG TABLET PO SCH (21:22)
[2021-10-28] MEDS: traZODone HCL 50 MG TABLET (DESYREL) PO SCH (21:23)
[2021-10-29 00:10] VITALS: BP_SYST 129
--- NOTE | 2021-10-29 00:50 | NUR ---
Rounds Pt sleeping soundly, no s/s distress noted. Safety maintained. To monitor.
--- NOTE | 2021-10-29 06:30 | NUR ---
Closing notes Pt asleep, easily awakens, no s/s distress or discomfort noted. Pt's at bedside and filled out CT contrast checklist. IV saline lock on L.hand flushes well with NS. Blood sugar check this AM 106. Call light within reach. Safety maintained. To endorse to AM nurse.
[2021-10-29 07:33] LABS: BASOPHILS # (AUTO) 0.1 K/uL (0.0-0.2); EOSINOPHILS # (AUTO) 0.2 K/uL (0.0-0.4); EOSINOPHILS % (AUTO) 3.2 % (0.0-4.0); HEMATOCRIT 39.9 % (36-48); HEMOGLOBIN 13.7 g/dL (12.0-16.0); LYMPHOCYTES # (AUTO) 3.3 K/uL (1.0-5.5); LYMPHOCYTES % (AUTO) 41.9 % (20.5-51.5); MEAN CORPUSCULAR HEMOGLOBIN 32 pg (27-31); MEAN CORPUSCULAR HGB CONC 34 % (32-36); MEAN CORPUSCULAR VOLUME 92 fL (79.0-98.0); MONOCYTES # (AUTO) 0.6 K/uL (0.0-1.0); NEUTROPHILS # (AUTO) 3.6 K/uL (1.8-7.7); NEUTROPHILS % (AUTO) 45.9 % (40.0-70.0); PLATELET COUNT (AUTO) 301 K/uL (130-430); RED BLOOD CELL COUNT(AUTO) 4.33 MIL/uL (4.2-6.2); RED CELL DISTRIBUTION WIDTH 14.6 % (9.0-15.0); WHITE BLOOD COUNT (AUTO) 7.8 K/uL (4.8-10.8)
--- NOTE | 2021-10-29 07:35 | NUR ---
OPENING NOTE: BEDSIDE REPORT RCVD FROM OUTGOING NOC RN, ALL CARES ASSUMED.
[2021-10-29 08:00] VITALS: BP_SYST 131
[2021-10-29 08:29] LABS: CALCIUM 8.4 mg/dL (8.4-11.0); CREATININE 1.09 mg/dL (0.55-1.30); POTASSIUM 3.1 mmol/L (3.5-5.1); THYROID STIMULATING HORMONE 1.01 uIu/mL (0.36-3.74); TOTAL BILIRUBIN 0.2 mg/dL (0.0-1.0)
--- NOTE | 2021-10-29 08:30 | NUR ---
UNABLE TO PLACE LARGER PIV DUE TO POOR ACCESS. WILL PAGE MD TO NOTIFY, PATIENT IS UNABLE TO GO TO CT FOR IMAGING WITH CONTRAST.
[2021-10-29] MEDS: MAGNESIUM OXIDE 400 MG TABLET PO SCH (08:35)
[2021-10-29] MEDS: DICYCLOMINE HCL 10 MG CAPSULE PO SCH ×2 (08:35→21:23)
[2021-10-29] MEDS ORDERED: MAGNESIUM OXIDE 400 MG TABLET ONE (08:35)
[2021-10-29] MEDS: metFORMIN HCL 500 MG TABLET PO SCH ×2 (08:36→21:24)
[2021-10-29] MEDS: HYDROCHLOROTHIAZIDE 25 MG TABLET (HCTZ) PO SCH (08:36)
[2021-10-29] MEDS: PARoxetine HCL 20 MG TABLET PO SCH (08:37)
[2021-10-29] MEDS: TOPIRAMATE 25 MG TABLET(TOPAMAX) PO SCH ×2 (08:37→21:24)
[2021-10-29] MEDS: CARVEDILOL 6.25 MG TABLET (COREG) PO SCH ×2 (08:37→21:23)
[2021-10-29] MEDS: FAMOTIDINE 20 MG TABLET PO SCH ×2 (08:38→21:23)
[2021-10-29] MEDS: busPIRone HCL 5 MG TABLET PO SCH ×2 (09:55→21:22)
[2021-10-29] MEDS: DOCUSATE SODIUM 250 MG CAPSULE PO SCH ×2 (10:00→21:24)
--- NOTE | 2021-10-29 10:37 | NUR ---
SPOKE WITH DR. GRIFFITHS, ORDER OBTAINED FOR MIDLINE PLACEMENT.
--- NOTE | 2021-10-29 11:00 | NUR ---
PATIENT EDUCATED ON MIDLINE, PATIENT HAS AGREED TO HAVE PLACEMENT DONE.
[2021-10-29 12:00] VITALS: BP_SYST 126
[2021-10-29] MEDS ORDERED: POTASSIUM CHLORIDE 20 MEQ TAB.PRT.SR PO ONE (14:00)
--- NOTE | 2021-10-29 14:00 | NUR ---
DR. GRIFFITHS AT BEDSIDE MAKING ROUNDS
[2021-10-29 16:00] VITALS: BP_SYST 110
[2021-10-29] MEDS: POTASSIUM CHLORIDE 20 MEQ TAB.PRT.SR PO SCH ×2 (16:50→21:24)
[2021-10-29] MEDS ORDERED: BISACODYL 5 MG TABLET.DR (DULCOLAX) PO ONE (17:00)
--- NOTE | 2021-10-29 17:03 | NUR ---
PICC NURSE AT BEDSIDE
--- NOTE | 2021-10-29 17:40 | NUR ---
MIDLINE PLACED BY PICC RN, PT TOLERATED WELL. RADHA
[2021-10-29] MEDS ORDERED: GOLYTELY / COLYTE SOLUTION 4 LITERS PO ONE (18:00)
--- NOTE | 2021-10-29 18:11 | NUR ---
BOWEL PREP GIVEN AND AT BEDSIDE, EDUCATION PROVIDED. PATIENT HAS AGREED TO DRINK THE PREP, REMAINS AT BEDSIDE.
--- NOTE | 2021-10-29 18:51 | NUR ---
CLOSING NOTE: PATIENT HAS REMAINED STABLE THROUGHOUT SHIFT, WILL ENDORSE CARES TO NOC RN.
[2021-10-29 20:00] VITALS: BP_SYST 139
[2021-10-29] MEDS ORDERED: POTASSIUM CHLORIDE 20 MEQ TAB.PRT.SR PO SCH (21:00)
[2021-10-29] MEDS: traZODone HCL 50 MG TABLET (DESYREL) PO SCH (21:24)
[2021-10-29] MEDS: ACETAMINOPHEN 500 MG TABLET PO PRN (23:38)
[2021-10-30] VITALS: BP_SYST 116
[2021-10-30] MEDS ORDERED: MIDAZOLAM HCL 5 MG/5 ML VIAL ONE ×2 (06:10→11:43)
[2021-10-30] MEDS ORDERED: MEPERIDINE 100 MG INJ. 100 MG/ML VIAL ONE (06:10)
[2021-10-30] MEDS ORDERED: SIMETHICONE 40 MG/0.6 ML ML ONE (06:10)
[2021-10-30 06:53] LABS: BASOPHILS % (AUTO) 0.6 % (0.0-2.0); EOSINOPHILS # (AUTO) 0.2 K/uL (0.0-0.4); EOSINOPHILS % (AUTO) 3.3 % (0.0-4.0); HEMOGLOBIN 14.2 g/dL (12.0-16.0); LYMPHOCYTES # (AUTO) 2.7 K/uL (1.0-5.5); LYMPHOCYTES % (AUTO) 37.7 % (20.5-51.5); MEAN CORPUSCULAR HEMOGLOBIN 31 pg (27-31); MEAN CORPUSCULAR HGB CONC 35 % (32-36); MEAN CORPUSCULAR VOLUME 90 fL (79.0-98.0); MONOCYTES # (AUTO) 0.6 K/uL (0.0-1.0); MONOCYTES % (AUTO) 7.9 % (1.7-9.3); NEUTROPHILS # (AUTO) 3.6 K/uL (1.8-7.7); NEUTROPHILS % (AUTO) 50.5 % (40.0-70.0); PLATELET COUNT (AUTO) 295 K/uL (130-430); RED BLOOD CELL COUNT(AUTO) 4.56 MIL/uL (4.2-6.2); RED CELL DISTRIBUTION WIDTH 14.2 % (9.0-15.0); WHITE BLOOD COUNT (AUTO) 7.1 K/uL (4.8-10.8)
[2021-10-30 07:10] LABS: ALBUMIN 3.1 g/dL (3.4-4.8); CALCIUM 8.7 mg/dL (8.4-11.0); TOTAL BILIRUBIN 0.5 mg/dL (0.0-1.0)
[2021-10-30 07:54] LABS: POTASSIUM 2.5 mmol/L (3.5-5.1)
[2021-10-30 08:00] VITALS: BP_SYST 134
--- NOTE | 2021-10-30 08:00 | NUR ---
CRITICAL LAB: from Laboratory called with critical lab value K 2.5. Medical record number and patient name verified. Read back of values done. notified of value.potassium replacement orders given at this time.
[2021-10-30] MEDS: POTASSIUM CHLORIDE 20 MEQ TAB.PRT.SR PO SCH ×4 (09:00→22:05)
[2021-10-30] MEDS: metFORMIN HCL 500 MG TABLET PO SCH ×4 (09:00→22:05)
[2021-10-30] MEDS ORDERED: iohexoL 240 mgI/mL, 150 ML INFUS..BTL IV ONE (09:36)
[2021-10-30] MEDS: DOCUSATE SODIUM 250 MG CAPSULE PO SCH ×3 (10:00→22:01)
[2021-10-30] MEDS ORDERED: KCL 40 mEq in 100 mL (PREMIX) 100 ML IV ONE ×2 (10:45→13:00)
[2021-10-30] MEDS ORDERED: DIPHENHYDRAMINE INJ 50 MG/ML VIAL ONE (11:19)
[2021-10-30 11:25] VITALS: BP_SYST 144
[2021-10-30] MEDS: FAMOTIDINE 20 MG TABLET PO SCH ×2 (13:42→22:02)
[2021-10-30] MEDS: HYDROCHLOROTHIAZIDE 25 MG TABLET (HCTZ) PO SCH (13:42)
[2021-10-30] MEDS: busPIRone HCL 5 MG TABLET PO SCH ×2 (13:42→22:11)
[2021-10-30] MEDS: TOPIRAMATE 25 MG TABLET(TOPAMAX) PO SCH ×2 (13:43→22:10)
[2021-10-30] MEDS: CARVEDILOL 6.25 MG TABLET (COREG) PO SCH ×2 (13:44→22:05)
[2021-10-30] MEDS ORDERED: POTASSIUM CHLORIDE 40 MEQ in D5W 250 ML IV ONE (15:00)
[2021-10-30] MEDS: PARoxetine HCL 20 MG TABLET PO SCH (15:13)
[2021-10-30] MEDS: MAGNESIUM OXIDE 400 MG TABLET PO SCH (15:14)
--- NOTE | 2021-10-30 17:21 | NUR ---
A/Ox4,vss,anxious,shaking,ambulaotry by self.crying pain in arm with first k rider infusion. stop infusion and changed K rider 40meq in 250ml dextrose bag,and given per dry charge process attendant midline in left upper arm remains patent and intact.MRI pelvis rescheduled tomorrow needs attended,hourly round made,safety maintained.
--- NOTE | 2021-10-30 19:40 | NUR ---
Opening notes Received patient awake, AOx4, resting in bed no distress, nonlabored breathing on room air, and VSS. IV rider infusing via midline to RADHA. She was informed of MRI study tomorrow and she said her , Ayush jane complete checklist form in am. Call light w/in reach. She ambulated to restroom. tm.
[2021-10-30 20:00] VITALS: BP_SYST 129
[2021-10-30] MEDS: DICYCLOMINE HCL 10 MG CAPSULE PO SCH (22:09)
[2021-10-30] MEDS: traZODone HCL 50 MG TABLET (DESYREL) PO SCH (22:12)
--- NOTE | 2021-10-30 22:17 | NUR ---
Meds Scheduled medications given, reviewed side effects of meds Ana Haley and she verbalized understanding. She took meds two or three at a time with water. No further needs, wctm
[2021-10-31 00:05] VITALS: BP_SYST 127
--- NOTE | 2021-10-31 00:05 | NUR ---
V/S Patient resting w/eyes closed and momentarily awakened for V/S, which are stable. She was asked if needs to go to restroom and said not now. Reviewed benefit of bed alarm and she said does not want the bed alarm on, call light w/in reach.
[2021-10-31] MEDS: LORazepam 2 MG/ML VIAL IVP PRN ×2 (02:03→02:48)
--- NOTE | 2021-10-31 02:03 | NUR ---
IV beep Patient called d/t IV alarming. It seems IV timed out automatically started beeping (though she was saline locked). Upon going in room to answer call light patient was upset and stressed d/t she reports she had called earlier and no one came (I responded to notice of her call calling immediately, it was first time I was informed of call light ringing). She was also upset that corporate secretary did not see polite; I followed up and informed rn intensive care unit and charge nurse. She requested medication to calm her down and in the process of administering Ativan IVP noticed the saline leak down her arm; She was notified and noticed that Midline is no longer patent and she agreed to new IV start.
--- NOTE | 2021-10-31 02:54 | NUR ---
IV start, Ativan Charge nurse LYLE Bishop started a #24 chelly angiocath to left thumb. Patient experiencing anxiety and administered Ativan as ordered, wctm.
[2021-10-31 06:43] LABS: BASOPHILS % (AUTO) 0.6 % (0.0-2.0); EOSINOPHILS # (AUTO) 0.2 K/uL (0.0-0.4); EOSINOPHILS % (AUTO) 3.1 % (0.0-4.0); HEMATOCRIT 38.2 % (36-48); HEMOGLOBIN 13.2 g/dL (12.0-16.0); LYMPHOCYTES # (AUTO) 2.9 K/uL (1.0-5.5); LYMPHOCYTES % (AUTO) 41.2 % (20.5-51.5); MEAN CORPUSCULAR HEMOGLOBIN 31 pg (27-31); MEAN CORPUSCULAR HGB CONC 34 % (32-36); MEAN CORPUSCULAR VOLUME 91 fL (79.0-98.0); MONOCYTES # (AUTO) 0.7 K/uL (0.0-1.0); MONOCYTES % (AUTO) 9.3 % (1.7-9.3); NEUTROPHILS # (AUTO) 3.2 K/uL (1.8-7.7); NEUTROPHILS % (AUTO) 45.8 % (40.0-70.0); PLATELET COUNT (AUTO) 269 K/uL (130-430); RED CELL DISTRIBUTION WIDTH 14.5 % (9.0-15.0)
[2021-10-31 07:05] LABS: ALBUMIN 2.8 g/dL (3.4-4.8); CALCIUM 8.4 mg/dL (8.4-11.0); CREATININE 0.94 mg/dL (0.55-1.30); PHOSPHORUS 3.6 mg/dL (2.7-4.5); POTASSIUM 3.2 mmol/L (3.5-5.1); TOTAL BILIRUBIN 0.3 mg/dL (0.0-1.0)
--- NOTE | 2021-10-31 08:00 | NUR ---
NOTES PATIENT AAOX 4. VITALS SIGNS STABLE. AFEBRILE. LUNGS BILATERALLY CLEAR. ABDOMEN SOFT AND NON DISTENDED. HAS IV ACCESS ON THE RT WRIST #22. SALINE LOCKED. PATENT/DRY. HAS MIDLINE 2 LUMEN DRY AND INTACT. CALL LIGHTS WITHIN REACH. BED LOW POSITION, ALARMED AND LOCKED WILL CONTINUE TO MONITOR.
[2021-10-31 09:18] VITALS: BP_SYST 105
--- NOTE | 2021-10-31 10:00 | NUR ---
WENT TO RADIOLOGY FOR MRI OF THE ABDOMEN WITHOUT CONTRAST.
[2021-10-31] MEDS: busPIRone HCL 5 MG TABLET PO SCH ×2 (10:52→22:00)
[2021-10-31] MEDS: DICYCLOMINE HCL 10 MG CAPSULE PO SCH ×2 (10:52→21:59)
[2021-10-31] MEDS: MAGNESIUM OXIDE 400 MG TABLET PO SCH (10:52)
[2021-10-31] MEDS: DOCUSATE SODIUM 250 MG CAPSULE PO SCH ×2 (10:52→22:05)
[2021-10-31] MEDS: HYDROCHLOROTHIAZIDE 25 MG TABLET (HCTZ) PO SCH (10:53)
[2021-10-31] MEDS: FAMOTIDINE 20 MG TABLET PO SCH ×2 (10:53→22:05)
[2021-10-31] MEDS: PARoxetine HCL 20 MG TABLET PO SCH (10:53)
[2021-10-31] MEDS: TOPIRAMATE 25 MG TABLET(TOPAMAX) PO SCH ×2 (10:54→22:06)
[2021-10-31] MEDS: metFORMIN HCL 500 MG TABLET PO SCH ×2 (10:54→22:04)
[2021-10-31] MEDS: CARVEDILOL 6.25 MG TABLET (COREG) PO SCH ×2 (10:54→22:03)
[2021-10-31] MEDS: POTASSIUM CHLORIDE 20 MEQ TAB.PRT.SR PO SCH ×4 (10:55→22:05)
--- NOTE | 2021-10-31 11:46 | NUR ---
LATEST BS 178 MG/DL. REFUSED TO HAVE COVERAGE AT THIS TIME.
[2021-10-31 12:52] VITALS: BP_SYST 117
--- NOTE | 2021-10-31 13:25 | NUR ---
MEDS DUE GIVEN AT THIS TIME.
[2021-10-31 16:02] VITALS: BP_SYST 115
--- NOTE | 2021-10-31 16:45 | NUR ---
PATIENT STABLE. RESTING COMFORTABLY. NO PAIN NOR DISCOMFORT NOTED.
[2021-10-31] MEDS: ACETAMINOPHEN 500 MG TABLET PO PRN ×3 (17:23→23:34)
--- NOTE | 2021-10-31 18:00 | NUR ---
SEEN BY DR GRIFFITHS. LATEST BS 82 MG/DL. NO COVERAGE GIVEN.
--- NOTE | 2021-10-31 18:36 | NUR ---
MATTHEW IS AT THE BEDSIDE.
--- NOTE | 2021-10-31 19:50 | NUR ---
OPEN NOTE Patient alert and orientated x 4. No notable signs of distress. Patient vitals signs checked with no abnormalities noted. Patient independent of bathroom needs. Call light at reach.
[2021-10-31 20:00] VITALS: BP_SYST 108
--- NOTE | 2021-10-31 21:30 | NUR ---
50mg HYDROXYZINE PAMAOATE NOT AVAILABLE ON FLOOR Pharmacy closed at this hour Pulled out 25mg tablets of same medication - full dosage is 100mg. Pulled out 4 - administered medication but could not scan because not in emar.
[2021-10-31] MEDS: traZODone HCL 50 MG TABLET (DESYREL) PO SCH (22:04)
--- NOTE | 2021-11-01 06:53 | NUR ---
CLOSE NOTE Patient alert and orientated x 4. No notable signs of distress. Patient vitals signs checked with no abnormalities noted. Patient independent of bathroom needs. Call light at reach. Addendum: 11/01/21 at 0746 by Rene Antonio RN MIDLINE NOT WORKING DUE TO BUSY SHIFT, UNABLE TO CALL DOCTOR IN MORNING FOR ORDER TO REMOVE ENDORSED TO DAYSHIFT
--- NOTE | 2021-11-01 07:45 | NUR ---
NOTES PATIENT AAOX 4. VITALS SIGNS STABLE. AFEBRILE. LUNGS BILATERALLY CLEAR BUT DIMINISHED AT THE BASES. ABDOMEN SOFT AND NON DISTENDED. HAS IV ACCESS ON THE LEFT WRIST #24. SALINE LOCKED. PATENT/DRY. HAS MIDLINE LEFT UPPER ARM. SALINE LOCKED. LEAKING, INFORMED DR GRIFFITHS. SAID DISCONTINUE. CALL LIGHTS WITHIN REACH. BED LOW POSITION, ALARMED AND LOCKED. WILL CONTINUE
[2021-11-01 08:00] VITALS: BP_SYST 139
[2021-11-01 08:56] LABS: CREATININE 0.97 mg/dL (0.55-1.30); POTASSIUM 3.5 mmol/L (3.5-5.1)
--- NOTE | 2021-11-01 10:00 | NUR ---
DUE MEDS GIVEN . MADE COMFORTABLE.
[2021-11-01] MEDS: busPIRone HCL 5 MG TABLET PO SCH ×2 (10:03→21:55)
[2021-11-01] MEDS: TOPIRAMATE 25 MG TABLET(TOPAMAX) PO SCH ×2 (10:03→21:56)
[2021-11-01] MEDS: MAGNESIUM OXIDE 400 MG TABLET PO SCH (10:03)
[2021-11-01] MEDS: PARoxetine HCL 20 MG TABLET PO SCH (10:04)
[2021-11-01] MEDS: HYDROCHLOROTHIAZIDE 25 MG TABLET (HCTZ) PO SCH (10:04)
[2021-11-01] MEDS: CARVEDILOL 6.25 MG TABLET (COREG) PO SCH ×2 (10:05→21:57)
[2021-11-01] MEDS: FAMOTIDINE 20 MG TABLET PO SCH ×2 (10:05→21:55)
[2021-11-01] MEDS: DOCUSATE SODIUM 250 MG CAPSULE PO SCH ×2 (10:05→21:56)
[2021-11-01] MEDS: POTASSIUM CHLORIDE 20 MEQ TAB.PRT.SR PO SCH ×4 (10:05→21:56)
[2021-11-01] MEDS: metFORMIN HCL 500 MG TABLET PO SCH ×2 (10:05→21:55)
[2021-11-01] MEDS: DICYCLOMINE HCL 10 MG CAPSULE PO SCH ×2 (10:07→21:54)
--- NOTE | 2021-11-01 12:00 | NUR ---
REFUSED TO EAT LUNCH TRAY JUST [place] ONLY. ASSISTS ON ADLS.
[2021-11-01] MEDS ORDERED: AMITRIPTYLINE HCL 10 MG TABLET (ELAVIL) PO ONE (12:15)
[2021-11-01 12:57] VITALS: BP_SYST 132
--- NOTE | 2021-11-01 13:57 | NUR ---
DR GRIFFITHS CAME TO SEE THE PATIENT, BUT SHE IS IN THE BATHROOM
--- NOTE | 2021-11-01 14:52 | NUR ---
RESTING COMFORTABLY. NO PAIN NOR DISCOMFORT NOTED.
--- NOTE | 2021-11-01 15:06 | NUR ---
CONSULTATION PAGED/CALLED Reason for Consultation: [] rt buttocks mass Person Who was Notified: [] RUPERTO Consulting Physician: [] DR DELGADO Architectural Drafting Instructor Specialty: [] GEN SURGEON Ordering Physician: [] DR GRIFFITHS
[2021-11-01 16:03] VITALS: BP_SYST 138
--- NOTE | 2021-11-01 16:50 | NUR ---
DR DELGADO CALLED REGARDING THE CONSULTS AND ORDERED ULTRASOUND OF THE RIGHT BUTTOCKS. AND WILL THE PATIENT LATER.
--- NOTE | 2021-11-01 17:00 | NUR ---
latest bs 1234 mg.dl. no coverage given. Addendum: 11/01/21 at 1814 by Eveline Mcgee RN LATEST BS 123 MG/DL. NO COVERAGE GIVEN
--- NOTE | 2021-11-01 18:14 | NUR ---
PATIENT STILL EATING DINNER. AT THE BEDSIDE. NO PAIN NOR DISCOMFORTS NOTED.
--- NOTE | 2021-11-01 20:10 | NUR ---
Opening notes/Discontinued midline Pt AAOx4, no s/s distress noted. VSS. Discontinued midline per MD order, catheter tip intact at 15cm, checked against the chart. No bleeding noted. Pt tolerated well. Call light within reach. To monitor.
--- NOTE | 2021-11-01 20:19 | NUR ---
Called and spoke with Radialchristin and spoke with Magaly to follow up on Ultrasound. Per Magaly will ask [employer] tech when she comes back.
[2021-11-01 21:05] VITALS: BP_SYST 149
[2021-11-01] MEDS: AMITRIPTYLINE HCL 10 MG TABLET (ELAVIL) PO SCH (21:54)
[2021-11-01] MEDS: traZODone HCL 50 MG TABLET (DESYREL) PO SCH (21:55)
[2021-11-01] MEDS: ACETAMINOPHEN 500 MG TABLET PO PRN (22:14)
--- NOTE | 2021-11-01 23:20 | NUR ---
Dr. Wick at bedside to see pt. Pt c/o pain/mass or right upper buttock. Per order for Excisional biopsy right buttock. NPO after midnight. Addendum: 11/02/21 at 0144 by Shahida Horner RN after ultrasound done.
[2021-11-02 01:11] VITALS: BP_SYST 136
--- NOTE | 2021-11-02 01:30 | NUR ---
IV restart IV leaking L. hand 24G, dc'd IV catheter tip intact. RN started new IV L. forearm 22G flushes well with NS. Pt tolerated well.
--- NOTE | 2021-11-02 07:00 | NUR ---
Closing notes Pt alert, awake, no s/s distress noted. BS checked 93. IV saline locked L. FA 22 clear and patent. Call light within reach. Pt NPO for biopsy in afternoon. Pt signed consent. To endorse to AM nurse.
--- NOTE | 2021-11-02 07:17 | NUR ---
OPENING NOTE RECEIVED SBAR FROM NIGHT RN, PATIENT IN BED, RESPIRATIONS EVEN, NON LABORED, BED IN LOW AND LOCKED POSITION, CALL LIGHT WITHIN REACH, BED ALARM ON
[2021-11-02 08:00] VITALS: BP_SYST 131
[2021-11-02] MEDS: HYDROCHLOROTHIAZIDE 25 MG TABLET (HCTZ) PO SCH (08:35)
[2021-11-02] MEDS: CARVEDILOL 6.25 MG TABLET (COREG) PO SCH ×2 (08:35→21:39)
[2021-11-02] MEDS: AMITRIPTYLINE HCL 10 MG TABLET (ELAVIL) PO SCH ×2 (09:00→21:51)
[2021-11-02] MEDS: busPIRone HCL 5 MG TABLET PO SCH ×2 (09:00→21:35)
[2021-11-02] MEDS: FAMOTIDINE 20 MG TABLET PO SCH ×2 (09:00→21:37)
[2021-11-02] MEDS: DICYCLOMINE HCL 10 MG CAPSULE PO SCH ×2 (09:00→21:34)
[2021-11-02] MEDS: POTASSIUM CHLORIDE 20 MEQ TAB.PRT.SR PO SCH ×4 (09:00→21:40)
[2021-11-02] MEDS: metFORMIN HCL 500 MG TABLET PO SCH ×2 (09:00→21:36)
[2021-11-02] MEDS: PARoxetine HCL 20 MG TABLET PO SCH (09:00)
[2021-11-02] MEDS: MAGNESIUM OXIDE 400 MG TABLET PO SCH (09:00)
[2021-11-02] MEDS: TOPIRAMATE 25 MG TABLET(TOPAMAX) PO SCH ×2 (09:00→21:37)
[2021-11-02] MEDS: DOCUSATE SODIUM 250 MG CAPSULE PO SCH ×2 (09:44→21:52)
--- NOTE | 2021-11-02 10:19 | NUR ---
NURSE NOTE PATIENT IN BED, RESPIRATIONS EVEN, NON LABORED BED IN LOW AND LOCKED POSITION CALL LIGHT WITHIN REACH. DENIES ANY PAIN OR DISCOMFORT
[2021-11-02 12:00] VITALS: BP_SYST 122
--- NOTE | 2021-11-02 12:12 | NUR ---
PAGED PAGED LORENZO MERINO AR [phone] SPOKE WITH ELISHA.
--- NOTE | 2021-11-02 12:19 | NUR ---
DISCHARGE PLANNING Discussed dc planning with Dr Andrews in nsg station. Plan for possible dc home today after bx.
--- NOTE | 2021-11-02 12:45 | NUR ---
ANXIETY PATIENT STATES VERY ANXIOUS, REQUESTING MEDICATION
[2021-11-02] MEDS: LORazepam 2 MG/ML VIAL IVP PRN (12:57)
--- NOTE | 2021-11-02 14:10 | NUR ---
md Dr Andrews bedside examining patient
[2021-11-02] MEDS ORDERED: BUPIVACAINE LIPOSOME/PF 266 MG/20 ML VIAL INFIL ONE (15:38)
[2021-11-02] MEDS ORDERED: CEFAZOLIN 2 GM IVPB PREMIX 50 ML IV ONE (15:45)
[2021-11-02] MEDS ORDERED: LR 1,000 ML IV.SOLN IV ONE (15:45)
[2021-11-02] MEDS ORDERED: PROPOFOL 200MG/ 20ML VIAL (DIPRIVAN) IV ONE (15:45)
[2021-11-02] MEDS ORDERED: fentaNYL CITRATE/PF 100 MCG/2 ML AMP IVP ONE (15:45)
[2021-11-02] MEDS ORDERED: MIDAZOLAM HCL 5 MG/5 ML VIAL IVP ONE (15:45)
[2021-11-02] MEDS ORDERED: NALOXONE HCL 0.4 MG/ML AMP (NARCAN) IVP PRN (16:30)
[2021-11-02] MEDS ORDERED: fentaNYL CITRATE/PF 100 MCG/2 ML AMP IVP PRN ×2 (16:45)
[2021-11-02] MEDS ORDERED: METOCLOPRAMIDE HCL 10 MG/2 ML VIAL IVP PRN (16:45)
[2021-11-02] MEDS ORDERED: ONDANSETRON HCL 4 MG/2 ML VIAL IVP PRN (16:45)
--- NOTE | 2021-11-02 17:40 | NUR ---
returned from or Received report from COSMETOLOGY EDUCATOR. Patient in bed, respirations even, non labored, bed in low and locked position, call light within reach, obtained VS. Patient able to make needs known.
--- NOTE | 2021-11-02 18:00 | NUR ---
incentive spirometer Provided patient with incentive spirometer. educated patient regarding the indications of use. Answered all questions, Patient verbalized understanding and was able to demonstrate proper use of spirometer. present at bedside
--- NOTE | 2021-11-02 18:15 | NUR ---
pain patient complaining of pain, repositioned patient. requested pain medication.
[2021-11-02] MEDS: HYDROmorphone 1 MG/ML INJ. CARTRIDGE IVP PRN ×2 (18:22→21:55)
[2021-11-02] MEDS: CEFAZOLIN 1 GM IVPB PREMIX 50 ML IV SCH (18:23)
[2021-11-02 19:15] VITALS: BP_SYST 98
--- NOTE | 2021-11-02 19:27 | NUR ---
closing note Provided sbar to night RN, patient in bed, respirations even, non labored, bed in low and locked position, call light within reach. Endorsed 1914 and 1814 post op VS, assessment of pain medication effectiveness.
[2021-11-02 20:30] VITALS: BP_SYST 110
[2021-11-02] MEDS: traZODone HCL 50 MG TABLET (DESYREL) PO SCH (21:35)
[2021-11-02 23:12] VITALS: BP_SYST 126
[2021-11-03 01:02] VITALS: BP_SYST 127
[2021-11-03] MEDS: CEFAZOLIN 1 GM IVPB PREMIX 50 ML IV SCH (01:04)
[2021-11-03] MEDS: HYDROmorphone 1 MG/ML INJ. CARTRIDGE IVP PRN ×6 (01:05→22:30)
--- NOTE | 2021-11-03 04:00 | NUR ---
Pt remained stable, no acute distress, vs stable, pain well managed with Dilaudid 1 mg iv q3 hr as needed.
[2021-11-03 05:55] VITALS: BP_SYST 126
--- NOTE | 2021-11-03 07:25 | NUR ---
MORNING ROUNDS: PATIENT SLEEPING DURING ROUNDS. IV SALINE LOCK. NOT IN ANY RESPIRATORY DISTRESS.
[2021-11-03 08:20] VITALS: BP_SYST 117
[2021-11-03 08:22] LABS: BASOPHILS % (AUTO) 0.4 % (0.0-2.0); EOSINOPHILS # (AUTO) 0.2 K/uL (0.0-0.4); EOSINOPHILS % (AUTO) 2.3 % (0.0-4.0); HEMATOCRIT 41.4 % (36-48); HEMOGLOBIN 14.1 g/dL (12.0-16.0); LYMPHOCYTES # (AUTO) 2.6 K/uL (1.0-5.5); LYMPHOCYTES % (AUTO) 27.8 % (20.5-51.5); MEAN CORPUSCULAR HEMOGLOBIN 32 pg (27-31); MEAN CORPUSCULAR HGB CONC 34 % (32-36); MEAN CORPUSCULAR VOLUME 93 fL (79.0-98.0); MONOCYTES # (AUTO) 0.7 K/uL (0.0-1.0); MONOCYTES % (AUTO) 7.9 % (1.7-9.3); NEUTROPHILS # (AUTO) 5.8 K/uL (1.8-7.7); NEUTROPHILS % (AUTO) 61.6 % (40.0-70.0); PLATELET COUNT (AUTO) 325 K/uL (130-430); RED BLOOD CELL COUNT(AUTO) 4.46 MIL/uL (4.2-6.2); RED CELL DISTRIBUTION WIDTH 14.6 % (9.0-15.0); WHITE BLOOD COUNT (AUTO) 9.4 K/uL (4.8-10.8)
[2021-11-03 08:33] LABS: ALBUMIN 3.3 g/dL (3.4-4.8); CALCIUM 8.4 mg/dL (8.4-11.0); CREATININE 1.13 mg/dL (0.55-1.30); POTASSIUM 3.1 mmol/L (3.5-5.1); TOTAL BILIRUBIN 0.1 mg/dL (0.0-1.0)
[2021-11-03] MEDS: DICYCLOMINE HCL 10 MG CAPSULE PO SCH ×2 (09:36→21:41)
[2021-11-03] MEDS: busPIRone HCL 5 MG TABLET PO SCH ×2 (09:36→21:40)
[2021-11-03] MEDS: TOPIRAMATE 25 MG TABLET(TOPAMAX) PO SCH ×2 (09:37→21:40)
[2021-11-03] MEDS: metFORMIN HCL 500 MG TABLET PO SCH ×2 (09:38→21:43)
[2021-11-03] MEDS: MAGNESIUM OXIDE 400 MG TABLET PO SCH (09:38)
[2021-11-03] MEDS: CARVEDILOL 6.25 MG TABLET (COREG) PO SCH ×2 (09:39→21:45)
[2021-11-03] MEDS: AMITRIPTYLINE HCL 10 MG TABLET (ELAVIL) PO SCH ×2 (09:39→21:42)
[2021-11-03] MEDS: HYDROCHLOROTHIAZIDE 25 MG TABLET (HCTZ) PO SCH (09:39)
[2021-11-03] MEDS: FAMOTIDINE 20 MG TABLET PO SCH ×2 (09:39→21:42)
[2021-11-03] MEDS: DOCUSATE SODIUM 250 MG CAPSULE PO SCH ×2 (09:40→21:41)
[2021-11-03] MEDS: PARoxetine HCL 20 MG TABLET PO SCH (09:40)
[2021-11-03] MEDS: POTASSIUM CHLORIDE 20 MEQ TAB.PRT.SR PO SCH ×4 (09:40→21:42)
[2021-11-03] MEDS ORDERED: POTASSIUM CHLORIDE 20 MEQ TAB.PRT.SR PO ONE (11:30)
--- NOTE | 2021-11-03 11:30 | NUR ---
BLOOD SUGAR: BLOOD SUGAR TAKEN,NO INSULIN NEEDED PER SLIDING SCALE.
[2021-11-03 12:00] VITALS: BP_SYST 118
--- NOTE | 2021-11-03 17:26 | NUR ---
BLOOD SUGAR: BLOOD SUGAR TAKEN.NO INSULIN NEEDED PER SLIDING SCALE.
[2021-11-03 18:55] VITALS: BP_SYST 134
--- NOTE | 2021-11-03 18:56 | NUR ---
EVENING ROUNDS: PATIENT ,SITTING UP ON THE BED,EATING DadaS CHICKEN NUGGETS. BOUGHT IT FOR HER. CALL LIGHT WITH IN REACH. BED LOCKED AT LOWEST POSITION. STABLE.
[2021-11-03 19:47] VITALS: BP_SYST 117
[2021-11-03] MEDS: traZODone HCL 50 MG TABLET (DESYREL) PO SCH (21:43)
--- NOTE | 2021-11-03 22:30 | NUR ---
Pain med Pt reporting severe pain (9 out of 10);VSS, administered dilaudid as ordered. WCTM
[2021-11-04 00:14] VITALS: BP_SYST 112
--- NOTE | 2021-11-04 02:36 | NUR ---
rounds; resting Patient is resting w/eyes closed, no distress. Even chest rise and fall noted, call light w/in reach.
[2021-11-04 03:33] VITALS: BP_SYST 123
[2021-11-04] MEDS: HYDROmorphone 1 MG/ML INJ. CARTRIDGE IVP PRN ×3 (03:35→10:38)
--- NOTE | 2021-11-04 03:35 | NUR ---
Pain med Pt reporting severe pain (7 out of 10); administered dilaudid as ordered. WCTM
--- NOTE | 2021-11-04 07:45 | NUR ---
MORNING ROUNDS: PATIENT SLEEPING DURING ROUNDS. IV SALINE LOCK AT LEFT FOREARM INTACT. CALL LIGHT WITH IN REACH. BED LOCKED AT LOWEST POSITION. NO DISTRESS.
[2021-11-04 08:00] VITALS: BP_SYST 114
[2021-11-04 08:25] LABS: CALCIUM 7.7 mg/dL (8.4-11.0); CREATININE 0.99 mg/dL (0.55-1.30); POTASSIUM 3.7 mmol/L (3.5-5.1)
[2021-11-04] MEDS: FAMOTIDINE 20 MG TABLET PO SCH (10:07)
[2021-11-04] MEDS: MAGNESIUM OXIDE 400 MG TABLET PO SCH (10:07)
[2021-11-04] MEDS: busPIRone HCL 5 MG TABLET PO SCH (10:07)
[2021-11-04] MEDS: metFORMIN HCL 500 MG TABLET PO SCH (10:08)
[2021-11-04] MEDS: DOCUSATE SODIUM 250 MG CAPSULE PO SCH (10:08)
[2021-11-04] MEDS: DICYCLOMINE HCL 10 MG CAPSULE PO SCH (10:08)
[2021-11-04] MEDS: POTASSIUM CHLORIDE 20 MEQ TAB.PRT.SR PO SCH ×3 (10:08→17:16)
[2021-11-04] MEDS: PARoxetine HCL 20 MG TABLET PO SCH (10:08)
[2021-11-04] MEDS: AMITRIPTYLINE HCL 10 MG TABLET (ELAVIL) PO SCH (10:09)
[2021-11-04] MEDS: HYDROCHLOROTHIAZIDE 25 MG TABLET (HCTZ) PO SCH (10:09)
[2021-11-04] MEDS: TOPIRAMATE 25 MG TABLET(TOPAMAX) PO SCH (10:09)
[2021-11-04] MEDS: CARVEDILOL 6.25 MG TABLET (COREG) PO SCH (10:09)
[2021-11-04 12:00] VITALS: BP_SYST 144
[2021-11-04] MEDS ORDERED: HYDROmorphone 1 MG/ML INJ. CARTRIDGE IVP PRN (13:30)
[2021-11-04 16:00] VITALS: BP_SYST 109
[2021-11-04 16:08] VITALS: BP_SYST 109
--- NOTE | 2021-11-04 17:45 | NUR ---
D/C Patient Patient given medication reconciliation form and D/C instructions. Exit Care provided. Patient verbalized understanding. MD discussed with patient/ the results and treatment provided. Wheeled out patient for discharge to home. Patient in stable condition, ID band removed. IV catheter removed, intact and dressing applied, no active bleeding. Rx of pain meds/potassium given to pt's . Patient educated on pain management. All belongings sent with patient.
== END 2021-11-04 17:45 | disposition home or self-care (01) | DRG 392 ==
LOC: SED 11:19 → MERGE 14:11 → SMU 14:11 → STU 10-30 23:48 → SMU 11-01 16:51
PROVIDERS: ADMIT Internal Medicine; ATTEND Internal Medicine
PROC: 0DBL8ZZ Excision of Transverse Colon, Via Natural or Artificial Opening Endoscopic (ICD-10-PCS; 2021-10-30)
PROC: 0DB98ZX Excision of Duodenum, Via Natural or Artificial Opening Endoscopic, Diagnostic (ICD-10-PCS; principal; 2021-10-30 11:00)
PROC: 0DB78ZX Excision of Stomach, Pylorus, Via Natural or Artificial Opening Endoscopic, Diagnostic (ICD-10-PCS; 2021-10-30 11:00)
PROC: 0HB8XZZ Excision of Buttock Skin, External Approach (ICD-10-PCS; 2021-11-02)
DX: K29.70 Gastritis, unspecified, without bleeding (principal); E11.9 Type 2 diabetes mellitus without complications; E66.9 Obesity, unspecified; G25.0 Essential tremor; I10 Essential (primary) hypertension; K57.30 Diverticulosis of large intestine without perforation or abscess without bleeding; K64.8 Other hemorrhoids; K63.5 Polyp of colon; E87.6 Hypokalemia; F41.9 Anxiety disorder, unspecified; R22.2 Localized swelling, mass and lump, trunk; Z20.822 Contact with and (suspected) exposure to COVID-19; K21.9 Gastro-esophageal reflux disease without esophagitis; M47.812 Spondylosis without myelopathy or radiculopathy, cervical region; K80.20 Calculus of gallbladder without cholecystitis without obstruction; Z88.8 Allergy status to other drugs, medicaments and biological substances; Z79.899 Other long term (current) drug therapy; Z68.32 Body mass index [BMI] 32.0-32.9, adult; Z91.018 Allergy to other foods; Z91.048 Other nonmedicinal substance allergy status
CPT/HCPCS: 36415; 43239; 45385; 70450-TC; 70496; 70498; 71045; 71250-TC; 72195; 73502; 76376; 76536-TC; 76700-TC; 78226; 80048; 80053; 81003; 82306; 82607; 82962; 83036; 83690; 83735; 84100; 84439; 84443; 85025; 85610-TC; 85651-TC; 85730-TC; 86140; 87081; 88304; 88305; 88312; 88313; 93005; 93880; 96372; 96374; 99285; A9537; C9290; G0378; J0690; J1170; J1200; J2060; J2175; J2250; J2704; J3010; J3480; J7060; J7120; Q9966; Q9967

== ENCOUNTER 2022-02-18 17:25 | Emergency (ER) | payer OTHER ==
[~2022-02-18] VITALS: Ht 167.6 cm; Wt 84.4 kg
[~2022-02-18 17:25] MED LIST changes: +CARV6.2554 PO; +METF-379 PO; +PARO40TA PO; +TRAZ-250 PO
[2022-02-18 18:12] VITALS: BP_SYST 141
--- NOTE | 2022-02-18 18:20 | NUR ---
Placed in room 7 . Placed on monitoring manager, blood pressure machine and pulse oximeter. To gown for exam. Side rails up. Report given to LYLE MEJIA.
--- NOTE | 2022-02-18 18:27 | NUR ---
Assumed care of pt who came from home c/o L wrist pain x 1 day. Pt states her and were on vacation and she fell out of the bed onto her wrist. Pt is A&Ox4, agitated, accompanied by . HTN, Degenerative joint disease, hx of knee problems. VSS. Will monitor and provide care as ordered.
[2022-02-18] MEDS ORDERED: KETOROLAC TROMETHAMINE 60 MG/2 ML VIAL IM ONE (18:30)
[2022-02-18] MEDS ORDERED: LORazepam 1 MG TABLET PO ONE (18:30)
--- NOTE | 2022-02-18 18:33 | NUR ---
ER Dr. Crane at bedside examining patient.
[2022-02-18] MEDS ORDERED: HYDR-3917 PO (18:38)
[2022-02-18] MEDS ORDERED: IBUP-1969 PO (18:38)
[2022-02-18] MEDS ORDERED: MORPHINE 4 MG INJ. 4 MG/ML VIAL IM ONE (19:00)
--- NOTE | 2022-02-18 19:45 | NUR ---
Patient given written and verbal discharge instructions and verbalizes understanding. ER MD discussed with patient the results and treatment provided. Patient in stable condition. ID arm band removed. Rx of norco & ibuprofen given. Patient educated on pain management and to follow up with PMD. Pain Scale . Opportunity for questions provided and answered. Medication side effect fact sheet provided.
== END 2022-02-18 19:43 | disposition home or self-care (01) ==
LOC: SED 17:25
DX: S63.642A Sprain of metacarpophalangeal joint of left thumb, initial encounter (principal); E11.9 Type 2 diabetes mellitus without complications; I10 Essential (primary) hypertension; Z88.1 Allergy status to other antibiotic agents; Z91.018 Allergy to other foods; Z91.048 Other nonmedicinal substance allergy status; Z79.899 Other long term (current) drug therapy; W23.0XXA Caught, crushed, jammed, or pinched between moving objects, initial encounter; Y93.89 Activity, other specified; Y92.89 Other specified places as the place of occurrence of the external cause; Y99.8 Other external cause status
CPT/HCPCS: 99284; 73130; 29125; 96372; J1885; J2270

== ENCOUNTER 2022-02-28 13:35 | Outpatient (CLI) | payer OTHER ==
[~2022-02-28 13:35] MED LIST changes: +HYDR-3917 PO; +IBUP-1969 PO
== END 2022-02-28 19:07 | disposition home or self-care (01) ==
LOC: SRD 13:35
PROVIDERS: ATTEND Surgery
DX: R22.1 Localized swelling, mass and lump, neck (principal); E04.1 Nontoxic single thyroid nodule; M47.812 Spondylosis without myelopathy or radiculopathy, cervical region
CPT/HCPCS: 70491; 76376; Q9967

== ENCOUNTER 2022-05-15 08:45 | Day surgery (SDC) | payer OTHER ==
[2022-05-10 13:44] LABS: BASOPHILS % (AUTO) 0.4 % (0.0-2.0); EOSINOPHILS # (AUTO) 0.1 K/uL (0.0-0.4); EOSINOPHILS % (AUTO) 1.2 % (0.0-4.0); HEMATOCRIT 41.8 % (36-48); HEMOGLOBIN 14.2 g/dL (12.0-16.0); LYMPHOCYTES # (AUTO) 2.8 K/uL (1.0-5.5); LYMPHOCYTES % (AUTO) 34.3 % (20.5-51.5); MEAN CORPUSCULAR HEMOGLOBIN 31 pg (27-31); MEAN CORPUSCULAR HGB CONC 34 % (32-36); MEAN CORPUSCULAR VOLUME 93 fL (79.0-98.0); MONOCYTES # (AUTO) 0.6 K/uL (0.0-1.0); MONOCYTES % (AUTO) 6.7 % (1.7-9.3); NEUTROPHILS # (AUTO) 4.7 K/uL (1.8-7.7); NEUTROPHILS % (AUTO) 57.4 % (40.0-70.0); PLATELET COUNT (AUTO) 330 K/uL (130-430); RED BLOOD CELL COUNT(AUTO) 4.52 MIL/uL (4.2-6.2); RED CELL DISTRIBUTION WIDTH 13.4 % (9.0-15.0); WHITE BLOOD COUNT (AUTO) 8.2 K/uL (4.8-10.8)
[2022-05-10 14:01] LABS: ALBUMIN 3.7 g/dL (3.4-4.8); CREATININE 1.01 mg/dL (0.55-1.30); PROTHROMBIN TIME 10.2 SECS (9.5-12.5); TOTAL BILIRUBIN 0.3 mg/dL (0.0-1.0)
[2022-05-10 15:00] LABS: BILIRUBIN,URINE NEGATIVE (NEGATIVE); BLOOD, URINE NEGATIVE (NEGATIVE); CLARITY/URINE CLEAR (CLEAR); COLOR,URINE YELLOW (YELLOW); GLUCOSE,URINE NEGATIVE (NEGATIVE); KETONES,URINE TRACE (NEGATIVE); LEUKOCYTE ESTERASE ,URINE NEGATIVE (NEGATIVE); NITRITE, URINE NEGATIVE (NEGATIVE); PH,URINE 6.5 (5.0-8.0); PROTEIN URINE NEGATIVE (NEGATIVE); UROBILINOGEN,URINE 0.2 (0.2-1.0)
[2022-05-13] MEDS: MIDAZOLAM HCL 5 MG/5 ML VIAL ONE ×3 (11:10→13:15)
[~2022-05-15] VITALS: Ht 165.1 cm; Wt 83.9 kg
[2022-05-15] MEDS ORDERED: ONDANSETRON HCL 4 MG/2 ML VIAL IVP ONE (10:24)
[2022-05-15] MEDS ORDERED: NS IRRIG SOLN 1000 ML IR ONE (10:24)
[2022-05-15] MEDS ORDERED: LIDOCAINE/EPI 1% 1:100000 20 ML VIAL INJ ONE (10:24)
[2022-05-15] MEDS ORDERED: CEFAZOLIN 2 GM IVPB PREMIX 50 ML IV ONE (10:24)
[2022-05-15] MEDS ORDERED: PROPOFOL 200MG/ 20ML VIAL (DIPRIVAN) IV ONE (10:24)
[2022-05-15] MEDS ORDERED: KETOROLAC TROMETHAMINE 30 MG VIAL IVP ONE (10:24)
[2022-05-15] MEDS ORDERED: MIDAZOLAM HCL 5 MG/5 ML VIAL IVP ONE (10:24)
[2022-05-15] MEDS ORDERED: fentaNYL CITRATE/PF 100 MCG/2 ML AMP IVP ONE (10:24)
[2022-05-15] MEDS ORDERED: SEVOFLURANE 15 MIN GAS INH ONE (10:24)
[2022-05-15] MEDS ORDERED: METOCLOPRAMIDE HCL 10 MG/2 ML VIAL IVP ONE (10:24)
[2022-05-15] MEDS ORDERED: LR 1,000 ML IV.SOLN IV ONE (10:24)
[2022-05-15] MEDS ORDERED: ACETAMINOPHEN I.V. 1000 MG 100 ML IV PRN (11:30)
[2022-05-15 12:40] VITALS: BP_SYST 155
== END 2022-05-15 13:30 | disposition home or self-care (01) ==
LOC: SDS 08:45 → SMU 08:47 → SDS 13:30
PROVIDERS: ATTEND Surgery
DX: D17.22 Benign lipomatous neoplasm of skin and subcutaneous tissue of left arm (principal); I10 Essential (primary) hypertension; Z79.01 Long term (current) use of anticoagulants; Z88.8 Allergy status to other drugs, medicaments and biological substances; Z88.1 Allergy status to other antibiotic agents; Z20.822 Contact with and (suspected) exposure to COVID-19
CPT/HCPCS: 80053; 85025; 85610; 85730; 36415 ×3; 93005; 71045; 81003; 87426 ×2; 24076 ×2; 88304; 24075; U0003; J2250 ×2; J0690; J1885; J2765; J2405; J2704; J3010; J7120; 88305

== ENCOUNTER 2022-06-14 12:13 | Outpatient (CLI) | payer OTHER ==
[~2022-06-14 12:13] MED LIST changes: +PARO-147 PO; +PARO-148 PO; -PARO-63 PO; -PARO40TA PO
[2022-06-14 13:18] LABS: BASOPHILS # (AUTO) 0.1 K/uL (0.0-0.2); BASOPHILS % (AUTO) 0.7 % (0.0-2.0); EOSINOPHILS # (AUTO) 0.1 K/uL (0.0-0.4); EOSINOPHILS % (AUTO) 1.4 % (0.0-4.0); HEMATOCRIT 42.2 % (36-48); HEMOGLOBIN 14.2 g/dL (12.0-16.0); LYMPHOCYTES # (AUTO) 2.6 K/uL (1.0-5.5); LYMPHOCYTES % (AUTO) 32.8 % (20.5-51.5); MEAN CORPUSCULAR HEMOGLOBIN 31 pg (27-31); MEAN CORPUSCULAR HGB CONC 34 % (32-36); MEAN CORPUSCULAR VOLUME 92 fL (79.0-98.0); MONOCYTES # (AUTO) 0.6 K/uL (0.0-1.0); MONOCYTES % (AUTO) 6.9 % (1.7-9.3); NEUTROPHILS # (AUTO) 4.7 K/uL (1.8-7.7); NEUTROPHILS % (AUTO) 58.2 % (40.0-70.0); PLATELET COUNT (AUTO) 334 K/uL (130-430); RED BLOOD CELL COUNT(AUTO) 4.59 MIL/uL (4.2-6.2); RED CELL DISTRIBUTION WIDTH 13.2 % (9.0-15.0)
[2022-06-14 13:39] LABS: BILIRUBIN,URINE NEGATIVE (NEGATIVE); BLOOD, URINE NEGATIVE (NEGATIVE); CLARITY/URINE CLEAR (CLEAR); COLOR,URINE YELLOW (YELLOW); GLUCOSE,URINE NEGATIVE (NEGATIVE); KETONES,URINE TRACE (NEGATIVE); LEUKOCYTE ESTERASE ,URINE NEGATIVE (NEGATIVE); NITRITE, URINE NEGATIVE (NEGATIVE); PH,URINE 5.5 (5.0-8.0); PROTEIN URINE NEGATIVE (NEGATIVE); UROBILINOGEN,URINE 0.2 (0.2-1.0)
[2022-06-14 13:46] LABS: ALBUMIN 3.7 g/dL (3.4-4.8); CALCIUM 9.4 mg/dL (8.4-11.0); CREATININE 0.98 mg/dL (0.55-1.30); THYROID STIMULATING HORMONE 1.03 uIu/mL (0.34-4.82); TOTAL BILIRUBIN 0.3 mg/dL (0.0-1.0)
[2022-06-15 06:06] LABS: HEMOGLOBIN A1C 5.6 % (4.8-5.6)
== END 2022-06-14 20:31 | disposition home or self-care (01) ==
LOC: SLB 12:13
PROVIDERS: ATTEND Internal Medicine
DX: I10 Essential (primary) hypertension (principal); E66.9 Obesity, unspecified; R73.9 Hyperglycemia, unspecified; E55.9 Vitamin D deficiency, unspecified; E56.9 Vitamin deficiency, unspecified
CPT/HCPCS: 36415; 80053; 80061; 81003; 82306; 82607; 83036; 83735; 84439; 84443; 85025

== ENCOUNTER 2022-06-19 11:05 | Day surgery (SDC) | payer OTHER ==
[~2022-06-19] VITALS: Ht 167.6 cm; Wt 82.1 kg
[2022-06-19] MEDS ORDERED: BUPIVACAINE /EPINEPHRINE/PF 0.25% 30 ML VIAL ONE (12:45)
[2022-06-19] MEDS ORDERED: DEXAMETHASONE SOD PHOSPHATE 4 MG/ML VIAL ONE (12:45)
[2022-06-19] MEDS ORDERED: NS IRRIG SOLN 1000 ML IR ONE (12:45)
[2022-06-19] MEDS ORDERED: SUGAMMADEX SODIUM 200 MG/2 ML VIAL IV ONE (12:45)
[2022-06-19] MEDS ORDERED: LR 1,000 ML IV.SOLN IV ONE (12:45)
[2022-06-19] MEDS ORDERED: KETOROLAC TROMETHAMINE 30 MG VIAL ONE (12:45)
[2022-06-19] MEDS ORDERED: ONDANSETRON HCL 4 MG/2 ML VIAL ONE (12:45)
[2022-06-19] MEDS ORDERED: fentaNYL CITRATE/PF 100 MCG/2 ML AMP ONE (12:45)
[2022-06-19] MEDS ORDERED: DESFLURANE 15 MIN GAS INH ONE (12:45)
[2022-06-19] MEDS ORDERED: ROCURONIUM BROMIDE 10 MG/ML (ZEMURON) ONE (12:45)
[2022-06-19] MEDS ORDERED: PROPOFOL 200MG/ 20ML VIAL (DIPRIVAN) IV ONE (12:45)
[2022-06-19] MEDS ORDERED: MIDAZOLAM HCL 2 MG/2 ML VIAL (VERSED) ONE (12:45)
[2022-06-19] MEDS ORDERED: MEPERIDINE HCL/PF 25 MG/ML DISP.SYRIN IVP PRN (13:30)
[2022-06-19] MEDS ORDERED: LR 1,000 ML IV SCH (13:30)
[2022-06-19] MEDS ORDERED: MIDAZOLAM HCL 2 MG/2 ML VIAL (VERSED) IVP PRN (13:30)
[2022-06-19] MEDS ORDERED: LABETALOL 100 MG/ 20ML VIAL IVP PRN (13:30)
[2022-06-19] MEDS ORDERED: ONDANSETRON HCL 4 MG/2 ML VIAL IVP PRN (13:30)
[2022-06-19] MEDS ORDERED: hydrALAZINE HCL 20 MG/ML VIAL IVP PRN (13:30)
[2022-06-19] MEDS ORDERED: HYDROmorphone 1 MG/ML INJ. CARTRIDGE IVP PRN ×2 (13:30)
[2022-06-19] MEDS ORDERED: HYDROmorphone 1 MG/ML INJ. CARTRIDGE ONE (15:29)
[2022-06-19 16:30] VITALS: BP_SYST 148
== END 2022-06-19 16:30 | disposition home or self-care (01) ==
LOC: SDS 11:05
PROVIDERS: ATTEND Surgery
DX: R22.32 Localized swelling, mass and lump, left upper limb (principal); D17.22 Benign lipomatous neoplasm of skin and subcutaneous tissue of left arm; I10 Essential (primary) hypertension; F41.9 Anxiety disorder, unspecified; Z20.822 Contact with and (suspected) exposure to COVID-19; Z79.899 Other long term (current) drug therapy
CPT/HCPCS: 36415; 23071; 88304; U0003; J3490 ×3; J1100; J1885; J3465; J2405; J2704; J3010; J7120; J1170

== ENCOUNTER 2022-10-04 12:35 | Outpatient (CLI) | payer OTHER | END 2022-10-04 20:31 | disposition home or self-care (01) | LOC: SMA 12:35 | PROVIDERS: ATTEND Internal Medicine | DX: E04.2 Nontoxic multinodular goiter (principal); I65.23 Occlusion and stenosis of bilateral carotid arteries; N63.20 Unspecified lump in the left breast, unspecified quadrant; N63.10 Unspecified lump in the right breast, unspecified quadrant; R92.2 Inconclusive mammogram | CPT/HCPCS: 76536-TC; 76641; 77066; 93880 ==

== ENCOUNTER 2023-01-01 14:49 | Outpatient (CLI) | payer OTHER ==
[2023-01-01 15:45] LABS: BASOPHILS % (AUTO) 0.4 % (0.0-2.0); EOSINOPHILS # (AUTO) 0.1 K/uL (0.0-0.4); EOSINOPHILS % (AUTO) 1.2 % (0.0-4.0); HEMATOCRIT 44.6 % (36-48); HEMOGLOBIN 14.9 g/dL (12.0-16.0); LYMPHOCYTES # (AUTO) 1.6 K/uL (1.0-5.5); MEAN CORPUSCULAR HEMOGLOBIN 30 pg (27-31); MEAN CORPUSCULAR HGB CONC 33 % (32-36); MEAN CORPUSCULAR VOLUME 91 fL (79.0-98.0); MONOCYTES # (AUTO) 0.4 K/uL (0.0-1.0); MONOCYTES % (AUTO) 6.7 % (1.7-9.3); NEUTROPHILS # (AUTO) 4.2 K/uL (1.8-7.7); NEUTROPHILS % (AUTO) 66.7 % (40.0-70.0); PLATELET COUNT (AUTO) 309 K/uL (130-430); RED BLOOD CELL COUNT(AUTO) 4.89 MIL/uL (4.2-6.2); RED CELL DISTRIBUTION WIDTH 13.3 % (9.0-15.0); WHITE BLOOD COUNT (AUTO) 6.3 K/uL (4.8-10.8)
[2023-01-01 16:16] LABS: ALBUMIN 3.5 g/dL (3.4-4.8); CREATININE 1.03 mg/dL (0.55-1.30); POTASSIUM 4.4 mmol/L (3.5-5.1); THYROID STIMULATING HORMONE 0.95 uIu/mL (0.34-4.82); TOTAL BILIRUBIN 0.4 mg/dL (0.0-1.0); TOTAL PROTEIN, SERUM 7.8 g/dL (6.4-8.3)
== END 2023-01-01 18:49 | disposition home or self-care (01) ==
LOC: SLB 14:49
PROVIDERS: ATTEND Internal Medicine
DX: E11.65 Type 2 diabetes mellitus with hyperglycemia (principal); E78.5 Hyperlipidemia, unspecified; E03.9 Hypothyroidism, unspecified
CPT/HCPCS: 36415; 80053; 80061; 83037; 84436; 84443; 85025; 86376

== ENCOUNTER 2023-05-09 09:23 | Outpatient (CLI) | payer OTHER | END 2023-05-09 19:27 | disposition home or self-care (01) | LOC: SRD 09:23 | PROVIDERS: ATTEND Internal Medicine | DX: R05.9 Cough, unspecified (principal); R91.8 Other nonspecific abnormal finding of lung field; M47.814 Spondylosis without myelopathy or radiculopathy, thoracic region | CPT/HCPCS: 71046-TC ==

== ENCOUNTER 2023-06-09 10:33 | Day surgery (SDC) | payer OTHER ==
[2023-06-05 12:14] LABS: BASOPHILS % (AUTO) 0.6 % (0.0-2.0); EOSINOPHILS # (AUTO) 0.1 K/uL (0.0-0.4); HEMATOCRIT 41.9 % (36-48); HEMOGLOBIN 14.4 g/dL (12.0-16.0); LYMPHOCYTES # (AUTO) 2.3 K/uL (1.0-5.5); LYMPHOCYTES % (AUTO) 32.5 % (20.5-51.5); MEAN CORPUSCULAR HEMOGLOBIN 32 pg (27-31); MEAN CORPUSCULAR HGB CONC 34 % (32-36); MEAN CORPUSCULAR VOLUME 94 fL (79.0-98.0); MONOCYTES # (AUTO) 0.5 K/uL (0.0-1.0); MONOCYTES % (AUTO) 7.1 % (1.7-9.3); NEUTROPHILS # (AUTO) 4.2 K/uL (1.8-7.7); NEUTROPHILS % (AUTO) 58.8 % (40.0-70.0); PLATELET COUNT (AUTO) 349 K/uL (130-430); RED BLOOD CELL COUNT(AUTO) 4.44 MIL/uL (4.2-6.2); RED CELL DISTRIBUTION WIDTH 13.3 % (9.0-15.0); WHITE BLOOD COUNT (AUTO) 7.1 K/uL (4.8-10.8)
[2023-06-05 12:32] LABS: PROTHROMBIN TIME 10.3 SECS (9.5-12.5)
[2023-06-05 12:35] LABS: ALBUMIN 3.5 g/dL (3.4-4.8); CALCIUM 9.6 mg/dL (8.4-11.0); CREATININE 0.83 mg/dL (0.55-1.30); POTASSIUM 4.6 mmol/L (3.5-5.1); TOTAL BILIRUBIN 0.4 mg/dL (0.0-1.0); TOTAL PROTEIN, SERUM 7.9 g/dL (6.4-8.3)
[~2023-06-09] VITALS: Ht 152.4 cm; Wt 81.6 kg
[2023-06-09 11:32] LABS: BILIRUBIN,URINE NEGATIVE (NEGATIVE); BLOOD, URINE NEGATIVE (NEGATIVE); COLOR,URINE YELLOW (YELLOW); GLUCOSE,URINE NEGATIVE (NEGATIVE); KETONES,URINE NEGATIVE (NEGATIVE); LEUKOCYTE ESTERASE ,URINE NEGATIVE (NEGATIVE); NITRITE, URINE NEGATIVE (NEGATIVE); PH,URINE 7.5 (5.0-8.0); PROTEIN URINE NEGATIVE (NEGATIVE); UROBILINOGEN,URINE 0.2 (0.2-1.0)
[2023-06-09 11:35] LABS: CLARITY/URINE SLIGHTLY HAZY (CLEAR)
[2023-06-09] MEDS ORDERED: DEXAMETHASONE SOD PHOSPHATE 4 MG/ML VIAL ONE (13:05)
[2023-06-09] MEDS ORDERED: LR 1,000 ML IV.SOLN IV ONE (13:05)
[2023-06-09] MEDS ORDERED: fentaNYL CITRATE/PF 100 MCG/2 ML AMP ONE (13:05)
[2023-06-09] MEDS ORDERED: NS IRRIG SOLN 1000 ML IR ONE (13:05)
[2023-06-09] MEDS ORDERED: DESFLURANE 15 MIN GAS INH ONE (13:05)
[2023-06-09] MEDS ORDERED: SUGAMMADEX SODIUM 200 MG/2 ML VIAL IV ONE (13:05)
[2023-06-09] MEDS ORDERED: LIDOCAINE/EPI 1% 1:100000 20 ML VIAL ONE (13:05)
[2023-06-09] MEDS ORDERED: LIDOCAINE 2%, 20 ML MDV ONE (13:05)
[2023-06-09] MEDS ORDERED: ONDANSETRON HCL 4 MG/2 ML VIAL ONE (13:05)
[2023-06-09] MEDS ORDERED: MIDAZOLAM HCL 2 MG/2 ML VIAL (VERSED) ONE (13:05)
[2023-06-09] MEDS ORDERED: PROPOFOL 200MG/ 20ML VIAL (DIPRIVAN) IV ONE (13:05)
[2023-06-09] MEDS ORDERED: ROCURONIUM BROMIDE 10 MG/ML (ZEMURON) ONE (13:05)
[2023-06-09] MEDS ORDERED: KETOROLAC TROMETHAMINE 30 MG VIAL ONE (13:05)
[2023-06-09] MEDS ORDERED: ceFAZolin SODIUM 2 GM VIAL ONE (13:05)
[2023-06-09] MEDS ORDERED: hydrALAZINE HCL 20 MG/ML VIAL IVP PRN (14:00)
[2023-06-09] MEDS ORDERED: MIDAZOLAM HCL 2 MG/2 ML VIAL (VERSED) IVP PRN (14:00)
[2023-06-09] MEDS ORDERED: METOCLOPRAMIDE HCL 10 MG/2 ML VIAL IVP PRN (14:00)
[2023-06-09] MEDS ORDERED: LR 1,000 ML IV SCH (14:00)
[2023-06-09] MEDS ORDERED: LABETALOL 100 MG/ 20ML VIAL IVP PRN (14:00)
[2023-06-09] MEDS ORDERED: MEPERIDINE HCL/PF 25 MG/ML DISP.SYRIN IVP PRN (14:00)
[2023-06-09] MEDS ORDERED: HYDROmorphone 1 MG/ML INJ. CARTRIDGE IVP PRN ×2 (14:00)
[2023-06-09 14:12] VITALS: O2SAT 96
[2023-06-09] MEDS ORDERED: HYDROcodone/ACETAMIN 5-325 MG TAB (NORCO/ VICODIN) PO PRN (14:45)
[2023-06-09] MEDS ORDERED: ONDANSETRON HCL 4 MG/2 ML VIAL IVP PRN (14:45)
[2023-06-09] MEDS: HYDROmorphone 1 MG/ML INJ. CARTRIDGE ONE ×2 (15:20→15:35)
[2023-06-09] MEDS ORDERED: HYDROcodone/ACETAMIN 5-325 MG TAB (NORCO/ VICODIN) ONE (17:04)
[2023-06-09 18:21] VITALS: BP_SYST 125; PULSE 65; RESP 18
== END 2023-06-09 18:12 | disposition home or self-care (01) ==
LOC: SDS 10:33 → SMU 10:34 → EEVIPCON 12:30 → SDS 18:12
PROVIDERS: ATTEND Surgery
DX: D21.9 Benign neoplasm of connective and other soft tissue, unspecified (principal); L72.0 Epidermal cyst; I10 Essential (primary) hypertension; K21.9 Gastro-esophageal reflux disease without esophagitis; E66.9 Obesity, unspecified; F41.9 Anxiety disorder, unspecified; F17.210 Nicotine dependence, cigarettes, uncomplicated; Z79.01 Long term (current) use of anticoagulants; Z79.899 Other long term (current) drug therapy
CPT/HCPCS: 80053; 85025; 85610; 85730; 87081; 36415; 93005; 21931 ×2; 11406; 81001; 88304; 81003; J3490; J1100; J1885; J2001; J3465; J2405; J2704; J3010; J1170; J7120

== ENCOUNTER 2023-07-14 10:34 | Day surgery (SDC) | payer OTHER ==
[~2023-07-14] VITALS: Ht 165.1 cm; Wt 81.6 kg
[2023-07-14 11:38] LABS: BILIRUBIN,URINE 1+ (NEGATIVE); BLOOD, URINE NEGATIVE (NEGATIVE); CLARITY/URINE SL CLOUDY (CLEAR); COLOR,URINE YELLOW (YELLOW); GLUCOSE,URINE NEGATIVE (NEGATIVE); KETONES,URINE NEGATIVE (NEGATIVE); LEUKOCYTE ESTERASE ,URINE NEGATIVE (NEGATIVE); NITRITE, URINE NEGATIVE (NEGATIVE); PROTEIN URINE NEGATIVE (NEGATIVE); UROBILINOGEN,URINE 0.2 (0.2-1.0)
[2023-07-14 11:50] LABS: BASOPHILS % (AUTO) 0.4 % (0.0-2.0); EOSINOPHILS # (AUTO) 0.1 K/uL (0.0-0.4); EOSINOPHILS % (AUTO) 1.3 % (0.0-4.0); HEMATOCRIT 39.5 % (36-48); HEMOGLOBIN 13.6 g/dL (12.0-16.0); LYMPHOCYTES # (AUTO) 1.6 K/uL (1.0-5.5); LYMPHOCYTES % (AUTO) 27.4 % (20.5-51.5); MEAN CORPUSCULAR HEMOGLOBIN 32 pg (27-31); MEAN CORPUSCULAR HGB CONC 34 % (32-36); MEAN CORPUSCULAR VOLUME 94 fL (79.0-98.0); MONOCYTES # (AUTO) 0.5 K/uL (0.0-1.0); MONOCYTES % (AUTO) 7.9 % (1.7-9.3); NEUTROPHILS # (AUTO) 3.6 K/uL (1.8-7.7); PLATELET COUNT (AUTO) 296 K/uL (130-430); RED CELL DISTRIBUTION WIDTH 12.7 % (9.0-15.0); WHITE BLOOD COUNT (AUTO) 5.7 K/uL (4.8-10.8)
[2023-07-14 11:54] VITALS: O2SAT 95
[2023-07-14 11:55] LABS: RBC,URINE 0-3 /HPF (0-3); WBC,URINE 0-3 /HPF (0-3)
[2023-07-14 11:56] LABS: BACTERIA,URINE RARE /HPF (None Seen); HYALINE CASTS, URINE 0-2 /LPF (None Seen)
[2023-07-14 12:01] LABS: CALCIUM 8.8 mg/dL (8.4-11.0); CREATININE 0.88 mg/dL (0.55-1.30); POTASSIUM 4.1 mmol/L (3.5-5.1)
[2023-07-14 12:05] LABS: ALBUMIN 3.1 g/dL (3.4-4.8); TOTAL BILIRUBIN 0.3 mg/dL (0.0-1.0)
[2023-07-14] MEDS ORDERED: DEXAMETHASONE SOD PHOSPHATE 4 MG/ML VIAL ONE (12:18)
[2023-07-14] MEDS ORDERED: MIDAZOLAM HCL/PF 2 MG/2 ML SYRINGE ONE (12:18)
[2023-07-14] MEDS ORDERED: DESFLURANE 15 MIN GAS INH ONE (12:18)
[2023-07-14] MEDS ORDERED: ONDANSETRON HCL 4 MG/2 ML VIAL ONE (12:18)
[2023-07-14] MEDS ORDERED: LIDOCAINE/EPI 1% 1:100000 20 ML VIAL ONE (12:18)
[2023-07-14] MEDS ORDERED: ROCURONIUM BROMIDE 10 MG/ML (ZEMURON) ONE (12:18)
[2023-07-14] MEDS ORDERED: fentaNYL CITRATE/PF 100 MCG/2 ML AMP ONE (12:18)
[2023-07-14] MEDS ORDERED: SUGAMMADEX SODIUM 200 MG/2 ML VIAL IV ONE (12:18)
[2023-07-14] MEDS ORDERED: BUPIVACAINE LIPOSOME/PF 266 MG/20 ML VIAL INFIL ONE (12:52)
[2023-07-14] MEDS ORDERED: hydrALAZINE HCL 20 MG/ML VIAL IVP PRN (13:00)
[2023-07-14] MEDS ORDERED: LABETALOL 100 MG/ 20ML VIAL IVP PRN (13:00)
[2023-07-14] MEDS ORDERED: HYDROmorphone 1 MG/ML INJ. CARTRIDGE IVP PRN ×2 (13:00)
[2023-07-14] MEDS ORDERED: ONDANSETRON HCL 4 MG/2 ML VIAL IVP PRN ×2 (13:00→14:30)
[2023-07-14] MEDS ORDERED: MIDAZOLAM HCL 2 MG/2 ML VIAL (VERSED) IVP PRN (13:00)
[2023-07-14] MEDS ORDERED: LR 1,000 ML IV SCH (13:00)
[2023-07-14] MEDS ORDERED: MEPERIDINE HCL/PF 25 MG/ML DISP.SYRIN IVP PRN (13:00)
[2023-07-14] MEDS: HYDROmorphone 1 MG/ML INJ. CARTRIDGE ONE (14:30)
[2023-07-14] MEDS: HYDROcodone/ACETAMIN 5-325 MG TAB (NORCO/ VICODIN) PO ONE (15:40)
[2023-07-14] MEDS ORDERED: HYDROcodone/ACETAMIN 5-325 MG TAB (NORCO/ VICODIN) ONE (15:44)
[2023-07-14 16:10] VITALS: BP_SYST 133; PULSE 76; RESP 20; TEMP 98.4
== END 2023-07-14 16:05 | disposition home or self-care (01) ==
LOC: SDS 10:34 → SMU 10:35 → SDS 16:05
PROVIDERS: ATTEND Surgery
DX: R22.32 Localized swelling, mass and lump, left upper limb (principal); D17.22 Benign lipomatous neoplasm of skin and subcutaneous tissue of left arm; I10 Essential (primary) hypertension; K21.9 Gastro-esophageal reflux disease without esophagitis; F41.9 Anxiety disorder, unspecified; F32.A Depression, unspecified; Z88.1 Allergy status to other antibiotic agents; Z91.018 Allergy to other foods; Z91.048 Other nonmedicinal substance allergy status; Z96.659 Presence of unspecified artificial knee joint; Z96.649 Presence of unspecified artificial hip joint; Z79.899 Other long term (current) drug therapy
CPT/HCPCS: 24071; 88304; 81000; 80053; 81001; 85025; 85730; 36415; J3490; C9290; J1100; J3465; J2405; J3010; J1170; 81015